=== PATIENT | female | born 1945 | race Caucasian/White ===

== ENCOUNTER 2018-04-27 10:00 | Outpatient (CLI) | payer MEDICARE, SELFPAY | END 2018-04-27 10:01 | PROVIDERS: PCP Nurse Practitioner Family; Visit Provider Psychiatry & Neurology Neurology | DX: G40.109 Localization-related (focal) (partial) symptomatic epilepsy and epileptic syndromes with simple partial seizures, not intractable, without status epilepticus (principal); Q28.3 Other malformations of cerebral vessels; I10 Essential (primary) hypertension; T42.0X5A Adverse effect of hydantoin derivatives, initial encounter | CPT/HCPCS: 99213 ==

== ENCOUNTER 2018-12-29 00:57 | Outpatient (CLI) | payer MEDICARE, SELFPAY ==
--- NOTE | 2018-12-29 12:42 | DI.MAMMO_ITS ---
SYMPTOMS/DIAGNOSIS: SCREENING, Z12.39 MAMMOGRAMS: Mammograms were interpreted according to the usual protocol including computer analysis with CAD system, tomosynthesis and C view imaging. There are no priors for comparison. No suspicious masses or microcalcifications are seen. There is a well- circumscribed nodule in the upper right breast seen on the mediolateral oblique view. This should be further evaluated with a spot compression view. Ultrasound may be indicated at that time. The skin and axillae are unremarkable. IMPRESSION: Additional views of the right breast as described above. Category 0, breast density C. MQSA ASSESSMENT OF FINDINGS: Incomplete: Needs additional imaging evaluation. Category 0. Patient will receive a letter notifying them of these results. Bi-RADS category C. The breasts are heterogeneously dense, which may obscure small masses.
== END 2018-12-29 01:17 ==
PROVIDERS: PCP Nurse Practitioner Family; Visit Provider Nurse Practitioner Family
DX: Z12.31 Encounter for screening mammogram for malignant neoplasm of breast (principal); R92.8 Other abnormal and inconclusive findings on diagnostic imaging of breast
CPT/HCPCS: 77063; 77067

== ENCOUNTER 2019-02-09 01:43 | Outpatient (CLI) | payer MEDICARE, SELFPAY ==
--- NOTE | 2019-02-09 09:52 | DI.COMBO_ITS ---
SYMPTOM/DIAGNOSIS: F/U MAMMO, NODULE RUQ RIGHT BREAST ADDITIONAL VIEWS AND RIGHT BREAST ULTRASOUND: Additional images are interpreted according to the usual protocol including tomosynthesis and 2D imaging. A mediolateral compression spot film was obtained today and reveals no definite mass. At ultrasound, no cyst or mass is demonstrated. SUMMARY: No evidence of malignancy, category 1. Yearly screening mammography is recommended. Breast density, Category B. MQSA ASSESSMENT OF FINDINGS: Negative. Category 1. Patient will receive a letter notifying them of these results. BI-RADS category B. There are scattered areas of fibroglandular density.
== END 2019-02-09 02:03 ==
PROVIDERS: PCP Nurse Practitioner Family
DX: Z12.31 Encounter for screening mammogram for malignant neoplasm of breast (principal); R92.8 Other abnormal and inconclusive findings on diagnostic imaging of breast; N64.59 Other signs and symptoms in breast
CPT/HCPCS: 76642; 77063; 77067

== ENCOUNTER → 2019-04-03 13:18 | Outpatient (BNVA) | payer MEDICARE, SELFPAY | PROVIDERS: PCP Nurse Practitioner Family; Visit Provider Psychiatry & Neurology Neurology | DX: Q28.3 Other malformations of cerebral vessels (principal); G40.109 Localization-related (focal) (partial) symptomatic epilepsy and epileptic syndromes with simple partial seizures, not intractable, without status epilepticus; M81.0 Age-related osteoporosis without current pathological fracture; G62.2 Polyneuropathy due to other toxic agents; I10 Essential (primary) hypertension | CPT/HCPCS: 99213 ==

== ENCOUNTER 2020-04-30 14:22 | Outpatient (REF) | payer MEDICARE, SELFPAY ==
[2020-04-30 19:38] LABS: HCT 37.3 % (36.0-46.0); HGB 12.4 g/dL (11.2-15.7); MCH 33.3 pg (27.0-33.0); MCHC 33.2 % (32.0-36.0); MCV 100.3 fL (80-95); MPV 10.3 fL (8.0-11.0); Platelet Count 319 10^3/uL (130-400); RBC 3.72 10^6/uL (3.93-5.22); RDW 11.9 % (11.7-14.6)
[2020-04-30 20:20] LABS: ALT 14 U/L (14-59); AST 27 U/L (15-37); Albumin 3.1 g/dL (3.4-5.0); Alkaline Phosphatase 173 U/L (46-116); Anion Gap 9.6 mmol/L (3-11); BUN 10 mg/dL (7-18); Bilirubin, Total 0.2 mg/dL (0.2-1.0); CO2 27.4 mmol/L (21.0-32.0); CREATININE 0.51 mg/dL (0.55-1.02); Calcium 8.5 mg/dL (8.5-10.1); Chloride 103 mmol/L (98-107); Glucose 91 mg/dL (74-106); Potassium 4.1 mmol/L (3.5-5.1); Sodium 140 mmol/L (136-145); TSH (W/Ref FT4) 1.65 uIU/mL (0.36-3.74); Total Protein 7.3 g/dL (6.4-8.2); Vitamin B12 258 pg/mL (193-986)
[2020-05-02 04:49] LABS: Vitamin D 25 Total 60.3 ng/ml (30-100)
== END 2020-04-30 14:42 ==
LOC: NCHCN 14:22
PROVIDERS: PCP Nurse Practitioner Family; Visit Provider Nurse Practitioner Family
DX: R63.4 Abnormal weight loss (principal); E53.8 Deficiency of other specified B group vitamins; M81.0 Age-related osteoporosis without current pathological fracture
CPT/HCPCS: 80053; 82306; 85027; 82607; 84443

== ENCOUNTER → 2020-06-03 14:29 | Outpatient (BNVA) | payer MEDICARE, SELFPAY | PROVIDERS: PCP Nurse Practitioner Family; Referring Provider Nurse Practitioner Family; Visit Provider Psychiatry & Neurology Neurology | DX: G40.109 Localization-related (focal) (partial) symptomatic epilepsy and epileptic syndromes with simple partial seizures, not intractable, without status epilepticus (principal); Q28.3 Other malformations of cerebral vessels; M81.0 Age-related osteoporosis without current pathological fracture; G62.2 Polyneuropathy due to other toxic agents; E53.8 Deficiency of other specified B group vitamins; T42.0X Poisoning by, adverse effect of and underdosing of hydantoin derivatives; R20.0 Anesthesia of skin; I10 Essential (primary) hypertension | CPT/HCPCS: 99214 ==

== ENCOUNTER → 2020-07-30 09:58 | Outpatient (BNVA) | payer MEDICARE, SELFPAY | PROVIDERS: PCP Nurse Practitioner Family; Referring Provider Nurse Practitioner Family; Visit Provider Nurse Practitioner Adult Health | DX: G56.01 Carpal tunnel syndrome, right upper limb (principal) | CPT/HCPCS: 95908; 99214 ==

== ENCOUNTER 2021-07-03 16:35 | Outpatient (REF) | payer MEDICARE, SELFPAY ==
[2021-07-03 15:19] LABS: HCT 38.6 % (36.0-46.0); HGB 12.8 g/dL (11.2-15.7); MCH 33.2 pg (27.0-33.0); MCHC 33.2 % (32.0-36.0); MPV 10.4 fL (8.0-11.0); Platelet Count 278 10^3/uL (130-400); RBC 3.86 10^6/uL (3.93-5.22); RDW 11.9 % (11.7-14.6); WBC 6.95 10^3/uL (4.4-10.8)
[2021-07-03 15:43] LABS: Iron 68 ug/dL (50-170); Total Iron Binding Capacity 203 ug/dL (250-450); Transferrin Sat 33 % (15-50)
[2021-07-03 15:57] LABS: ALT 18 U/L (14-59); AST 16 U/L (15-37); Albumin 3.4 g/dL (3.4-5.0); Alkaline Phosphatase 178 U/L (46-116); BUN 13 mg/dL (7-18); Bilirubin, Total 0.3 mg/dL (0.2-1.0); CREATININE 0.8 mg/dL (0.55-1.02); Calcium 8.5 mg/dL (8.5-10.1); Chloride 104 mmol/L (98-107); Glucose 95 mg/dL (74-106); Potassium 3.8 mmol/L (3.5-5.1); Sodium 142 mmol/L (136-145); TSH (W/Ref FT4) 2.97 uIU/mL (0.36-3.74); Total Protein 7.5 g/dL (6.4-8.2); Vitamin B12 298 pg/mL (193-986)
== END 2021-07-03 16:36 | disposition home or self-care (01) ==
LOC: NCHCN 16:35
PROVIDERS: PCP Nurse Practitioner Family; Visit Provider Nurse Practitioner Family
DX: N36.8 Other specified disorders of urethra (principal); R53.83 Other fatigue; I10 Essential (primary) hypertension; E53.8 Deficiency of other specified B group vitamins
CPT/HCPCS: 80053; 85027; 82607; 83540; 83550; 84443

== ENCOUNTER → 2021-09-16 09:49 | Outpatient (BNVA) | payer MEDICARE, SELFPAY | PROVIDERS: PCP Nurse Practitioner Family; Referring Provider Nurse Practitioner Family; Visit Provider Nurse Practitioner Gerontology | DX: R30.0 Dysuria (principal); N36.8 Other specified disorders of urethra; I10 Essential (primary) hypertension | CPT/HCPCS: 81003; 99214 ==

== ENCOUNTER 2021-09-16 15:13 | Outpatient (REF) | payer MEDICARE, SELFPAY | END 2021-09-16 15:14 | disposition home or self-care (01) | LOC: NCHCN 15:13 | PROVIDERS: PCP Nurse Practitioner Family; Visit Provider Nurse Practitioner Gerontology | DX: R30.0 Dysuria (principal) | CPT/HCPCS: 87086 ==

== ENCOUNTER → 2021-10-21 08:24 | Outpatient (BNVA) | payer MEDICARE, SELFPAY | PROVIDERS: PCP Nurse Practitioner Family; Referring Provider Nurse Practitioner Family; Visit Provider Nurse Practitioner Gerontology | DX: N36.8 Other specified disorders of urethra (principal) | CPT/HCPCS: 99213 ==

== ENCOUNTER → 2021-11-05 14:44 | Outpatient (CLI) | payer MEDICARE, SELFPAY ==
--- NOTE | 2021-11-05 14:41 | DI.RAD_ITS ---
Exam(s) XR ANKLE LT COMPLETE EXAM: XR ANKLE LT COMPLETE CLINICAL HISTORY: LT ANKLE PAIN, M25.572, LATERAL POSTERIOR MALLEOLI, S/P ROLLING, ? FX TECHNIQUE: 2D digital imaging was performed. COMPARISON: No exams were available for comparison FINDINGS: Exam is somewhat limited by overlying socks. BONES: No acute fracture is present. No bony destructive lesion is seen. Small heel spur. JOINTS:The ankle mortise is normally aligned. SOFT TISSUE: Vascular calcifications. IMPRESSION: No visible fracture. DATA REPOSITORY: RADIATION DOSE DELIVERED:
== END ==
PROVIDERS: PCP Nurse Practitioner Family; Visit Provider Physician Assistant Medical
DX: M25.572 Pain in left ankle and joints of left foot (principal)
CPT/HCPCS: 73610

== ENCOUNTER → 2022-01-07 14:23 | Outpatient (BNVA) | payer MEDICARE, SELFPAY | PROVIDERS: PCP Nurse Practitioner Family; Referring Provider Nurse Practitioner Family; Visit Provider Physician Assistant | DX: S90.32XA Contusion of left foot, initial encounter (principal); W06.XXXA Fall from bed, initial encounter | CPT/HCPCS: 99214 ==

== ENCOUNTER → 2022-02-13 00:03 | Outpatient (CLI) | payer MEDICARE, SELFPAY ==
--- NOTE | 2022-02-13 | DI.DEXA_ITS ---
Exam(s) XR DEXA BONE DENSITY W/WO ZURDO EXAM: XR DEXA BONE DENSITY W/WO ZURDO CLINICAL HISTORY: OSTEOPOROSIS M81.0 TECHNIQUE: COMPARISON: BD BONE DENSITY SPINE AND/OR HIP from 09/17/2016 FINDINGS: Lateral Spine Image: There is a mild compression deformity of the superior endplate of L3. There is anterior wedging of the L1 vertebral body. Left hip: Total T-Score: -3.4. This compares to -2.5 on the prior examination. Total Z-Score: -1.7 T- and Z-scores: Findings are consistent with osteoporosis. Lumbar Spine: Total T-Score: -3.9. This compares to -3.8 on the prior examination. Total Z-Score: -1.6 T- and Z-scores: Findings are consistent with osteoporosis. IMPRESSION: Osteoporosis in the left hip and lumbar spine.
== END ==
PROVIDERS: PCP Nurse Practitioner Family; Visit Provider Nurse Practitioner Family
DX: M81.0 Age-related osteoporosis without current pathological fracture (principal)
CPT/HCPCS: 77080

== ENCOUNTER 2022-04-24 07:58 | Outpatient (CLI) | payer MEDICARE, SELFPAY ==
--- NOTE | 2022-04-24 07:45 | RT.EKG_ITS ---
APPROVED REPORT Exam: Resting ECG Reason for Exam: afib Patient Location: O HR:85 bpm ECG Measurements Heart Rate 85 AXIS [place] [id number] P [id number] QRSd 78 QRS 53 QT 373 T 35 QTc 444 Conclusion Atrial fibrillation...? atrial activity RSR' in V1 or V2, probably normal variant...small R' only Baseline wander in lead(s) V3
== END 2022-04-24 07:59 | disposition home or self-care (01) ==
LOC: DI.CARD 07:59
PROVIDERS: PCP Nurse Practitioner Family; Visit Provider Internal Medicine Cardiovascular Disease
DX: I48.91 Unspecified atrial fibrillation (principal); R94.31 Abnormal electrocardiogram [ECG] [EKG]
CPT/HCPCS: 93010

== ENCOUNTER → 2022-04-24 13:10 | Outpatient (BNVA) | payer MEDICARE, SELFPAY | PROVIDERS: PCP Nurse Practitioner Family; Referring Provider Nurse Practitioner Family; Visit Provider Internal Medicine Cardiovascular Disease | DX: Q28.3 Other malformations of cerebral vessels (principal); I48.91 Unspecified atrial fibrillation | CPT/HCPCS: 93005; 99203; 99214 ==

== ENCOUNTER 2022-06-19 00:02 | Outpatient (CLI) | payer MEDICARE, SELFPAY ==
--- NOTE | 2022-06-19 10:30 | DI.US_ITS ---
APPROVED REPORT EXAM: Comprehensive 2D, Doppler, and color-flow Echocardiogram Patient Location: Out-Patient [employer] Filterer: Ellen Barragan RDCS (AE) Indications: A Fib Other Information Study Quality: Adequate Conclusion Normal left ventricular wall thickness and chamber size. Estimated ejection fraction is 60%. Wall m otion is normal Right ventricle is normal in size and systolic function The left atrium is moderately to severely dilated. The right atrium is mildly to moderately dilated Normal tricuspid valve with moderate regurgitation The aortic valve is sclerotic and trileaflet with trace regurgitation Normal mitral valve with moderate regurgitation Mildly dilated ascending aorta Estimated right ventricular systolic pressure is 31 mmHg Wall motion Left Ventricle The left ventricle is normal size. The left ventricular systolic function is normal. The left ventric ular ejection fraction is within the normal range. There is normal left ventricular wall thickness. T here is normal LV segmental wall motion. There is no ventricular septal defect visualized. LVEF is 58 %. Right Ventricle The right ventricle is normal size. The right ventricular systolic function is normal. The RVSP is 31 mmHg. Atria Left atrium is moderately to severely dilated. Right atrium is mild to moderately dilated. The intera trial septum is intact with no evidence for an atrial septal defect. Aortic Valve The Aortic valve is sclerotic. Aortic valve is trileaflet. There is no aortic valvular stenosis. Trac e aortic regurgitation. Mitral Valve The mitral valve is normal in structure. No evidence of mitral valve stenosis. moderate mitral regurg itation. Tricuspid Valve The tricuspid valve is normal in structure. There is no tricuspid valve stenosis. Moderate tricuspid regurgitation. Pulmonic Valve The pulmonary valve is normal in structure. There is no pulmonic valvular stenosis. Trace pulmonic re gurgitation. Great Vessels The aortic root is normal in size. The ascending aorta is mildly dilated. Aortic arch is normal in ca liber. IVC is normal in size and collapses >50% with inspiration. 2D Dimensions IVSD d PLAX 0.93 cm F: 0.6-1.0 LV Vol A2C d MOD 50.2 mL LVPW d PLAX 0.86 cm F: 0.6 - 1.0 LV Vol A4C d MOD 68.5 mL LVID d PLAX 4.10 cm F: 3.8 - 5.2 LA vol/ BSA A2C s A-L 34.5 mL/m2 LVDs 2.80 cm F: 2.2 - 3.5 LA Area A2C s MOD 20.48 cm2 Ao Root d 2.97 cm F: 2.7 - 3.3 LV EF A4C MOD 56.7 % RA Area A4C 17.68 cm2 LV EF A2C MOD 58.6 % RA Vol/ BSA A4C s A-L 32.9 mL/m2 LV EF Biplane MOD 57.6 % Ao Asc Diam d 3.49 cm F: 2.3 - 3.1 SV 34.28 mL LV EF Teichholz 59.9 % SV Index 20.39 mL/m2 LVEF (Bullock's) 57.59 % F: 54 - 74 LV Volume 47.47 mL F: 46 - 106 LV Volume Index 28.25 mL/m2 F: 29 - 61 LV Vol Biplane MOD 59.5 mL FS 31.50 % M-Mode TAPSE 1.75 cm (M/F) >1.7 LV Diastology MV E' lateral 0.037 (>0.1 m/s) MV E Vmax 0.79 (0.4-1.3 m/s) LV E/e LAT 21.25 (<14) MV E/E' lateral 21.26 Aortic Valve LVOT Area 2.90 cm2 AoV Area Vmax 2.23 cm2 LVOT Vmax 0.68 m/s AoV Area/ BSA (Vmax) 1.33 cm2/m2 LVOT Mean Jam. 0.48 m/s EARLINE Mean Jam. 2.15 cm2 LVOT Peak Grad 1.9 mmHg EARLINE Mean Jam. Index 1.28 cm2/m2 LVOT Mean Grad 1.1 mmHg LVOT VTI 0.118 m LVOT Diam s 1.90 cm AoV Vmax 0.89 m/s Velocity Ratio 0.76 AoV Mean Jam. 0.65 m/s AoV Peak Grad 3.1 mmHg LVOT SV 34.36 mL AoV Mean Grad 1.9 mmHg AoV VTI 0.173 m AoV Area VTI 1.99 cm2 AoV Area/ BSA (VTI) 1.18 cm/m2 Mitral Valve MV DT 154 (160-240 msec) MV PHT 45 msec MV Area PHT 4.93 cm2 MV VTI 0.135 m MV Area VTI 2.54 (4.0-6.0 cm2) Pulmonary Valve PV Vmax 0.62 (0.5-1.5 m/s) RVOT Peak Gr. 1.13 mmHg PV Peak Grad 1.5 mmHg RVOT Mean Gr. 0.55 mmHg PV Mean Grad 0.8 mmHg RVOT VTI 0.101 m PV VTI 0.107 m RVOT Vmax 0.53 m/s Tricuspid Valve TR Peak Grad 27.9 mmHg TR Vmax 2.64 m/s RA Pressure 3.00 mmHg RVSP (TR) 31.0 mmHg
== END 2022-06-19 00:22 ==
LOC: DI 00:02
PROVIDERS: PCP Nurse Practitioner Family; Visit Provider Internal Medicine Cardiovascular Disease
DX: I48.91 Unspecified atrial fibrillation (principal)
CPT/HCPCS: 93306

== ENCOUNTER 2022-06-26 11:48 | Outpatient (REF) | payer MEDICARE, SELFPAY ==
[2022-06-26 16:51] LABS: ALT 17 U/L (14-59); AST 19 U/L (15-37); Albumin 3.4 g/dL (3.4-5.0); Alkaline Phosphatase 164 U/L (46-116); Anion Gap 10.1 mmol/L (3-11); BUN 21 mg/dL (7-18); Bilirubin, Total 0.4 mg/dL (0.2-1.0); CO2 26.9 mmol/L (21.0-32.0); CREATININE 0.7 mg/dL (0.55-1.02); Chloride 102 mmol/L (98-107); Glucose 105 mg/dL (74-106); Sodium 139 mmol/L (136-145); Total Protein 8.2 g/dL (6.4-8.2)
== END 2022-06-26 11:49 | disposition home or self-care (01) ==
LOC: NCHCN 11:48
PROVIDERS: PCP Nurse Practitioner Family; Visit Provider Nurse Practitioner Family
DX: I10 Essential (primary) hypertension (principal)
CPT/HCPCS: 80053

== ENCOUNTER → 2023-04-13 13:19 | Outpatient (BNVA) | payer MEDICARE, SELFPAY | PROVIDERS: PCP Nurse Practitioner Family; Referring Provider Nurse Practitioner Family; Visit Provider Internal Medicine Cardiovascular Disease | DX: I48.91 Unspecified atrial fibrillation (principal); Q28.3 Other malformations of cerebral vessels | CPT/HCPCS: 99213 ==

== ENCOUNTER 2023-07-19 17:39 | Outpatient (REF) | payer MEDICARE, SELFPAY ==
[2023-07-19 19:11] LABS: Abs Immature Grans 0.01 10^3/uL (0.0-0.06); Absolute Basophil Count 0.04 10^3/uL (0.0-0.2); Absolute Eosinophil Count 0.13 10^3/uL (0.0-0.7); Absolute Lymphocyte Count 1.77 10^3/uL (1.2-3.4); Absolute Monocyte Count 0.59 10^3/uL (0.1-0.8); Absolute Neutrophil Count 3.93 10^3/uL (1.2-6.7); Basophils % 0.6; HCT 39.3 % (36.0-46.0); HGB 13.1 g/dL (11.2-15.7); Immature Grans % 0.2; Lymphocytes % 27.4; MCH 33.4 pg (27.0-33.0); MCHC 33.3 % (32.0-36.0); MCV 100 fL (80-95); MPV 10.7 fL (8.0-11.0); Monocytes % 9.1; Neutrophils % 60.7; Platelet Count 196 10^3/uL (130-400); RBC 3.92 10^6/uL (3.93-5.22); RDW 11.8 % (11.7-14.6); RDW-SD 43.2 fL; WBC 6.47 10^3/uL (4.4-10.8)
[2023-07-19 19:22] LABS: ALT 15 U/L (14-59); AST 18 U/L (15-37); Albumin 3.5 g/dL (3.4-5.0); Alkaline Phosphatase 162 U/L (46-116); Anion Gap 10.4 mmol/L (3-11); BUN 13 mg/dL (7-18); Bilirubin, Total 0.3 mg/dL (0.2-1.0); CO2 24.6 mmol/L (21.0-32.0); CREATININE 0.5 mg/dL (0.55-1.02); Calcium 8.8 mg/dL (8.5-10.1); Chloride 101 mmol/L (98-107); Estimated GFR 97.75 (mL/min/1.73m2); Glucose 95 mg/dL (74-106); Potassium 4.5 mmol/L (3.5-5.1); Sodium 136 mmol/L (136-145); Total Protein 7.4 g/dL (6.4-8.2)
== END 2023-07-19 17:40 | disposition home or self-care (01) ==
LOC: NCHCN 17:39
PROVIDERS: PCP Nurse Practitioner Family; Visit Provider Nurse Practitioner Family
DX: I48.91 Unspecified atrial fibrillation (principal); I10 Essential (primary) hypertension
CPT/HCPCS: 80053; 85025

== ENCOUNTER → 2024-02-04 00:58 | Outpatient (CLI) | payer MEDICARE, SELFPAY ==
--- NOTE | 2024-02-04 | DI.MRI_ITS ---
Exam(s) MR LOWER JOINT LT WO EXAM: MR LOWER JOINT LT WO CLINICAL HISTORY: Lt knee laxity with pain, instability, and falls, M23.8X9. TECHNIQUE: Multiplanar multisequence MRI was performed. COMPARISON: Exam interpreted without benefit of comparison plain films. FINDINGS: BONES: There is no fracture or contusion pattern. JOINTS: A small joint effusion is present. Articular cartilage: Patellofemoral joint: Severe cartilage thinning throughout. Some high signal w ithin the patellar apex. Medial femoral tibial joint: Mild cartilage thinning. Lateral femoral tibial joint: Irregular cartilage thinning extending down to bone. TENDONS: Extensor mechanism: Unremarkable. Medial retinaculum: Unremarkable. Lateral retinaculum: Unremarkable. Popliteus: Unremarkable. MUSCLES: Unremarkable. MENISCI: The medial meniscus shows degenerative changes. The lateral meniscus shows degenerative changes. SOFT TISSUES: Unremarkable. LIGAMENTS: Anterior Cruciate: Unremarkable. Posterior Cruciate: Unremarkable. Medial Collateral:Unremarkable. Lateral Collateral: Unremarkable. IMPRESSION: No evidence of ligament tear. Degenerative changes with severe cartilage thinning at the patellofemoral joint. Cartilage at irregularity at the lateral femoral tibial joint. Degenerative changes of the menisci, lateral greater than medial. DATA REPOSITORY:
== END ==
PROVIDERS: PCP Nurse Practitioner Family; Visit Provider Nurse Practitioner Family
DX: M17.12 Unilateral primary osteoarthritis, left knee (principal)
CPT/HCPCS: 73721

== ENCOUNTER 2024-04-18 12:44 | Outpatient (CLI) | payer MEDICARE, SELFPAY ==
--- NOTE | 2024-04-18 12:30 | RT.EKG_ITS ---
APPROVED REPORT Exam: Resting ECG Reason for Exam: afib Patient Location: O HR:86 bpm ECG Measurements Heart Rate 86 [address] [place] [id number] P [id number] QRSd 95 QRS 25 QT 351 T 15 QTc 420 Conclusion Atrial fibrillation...? atrial activity RSR' in V1 or V2, probably normal variant...small R' only Baseline wander in lead(s) V1,V2
== END 2024-04-18 12:45 | disposition home or self-care (01) ==
LOC: DI.CARD 12:45
PROVIDERS: Visit Provider Internal Medicine Cardiovascular Disease
DX: I48.91 Unspecified atrial fibrillation (principal)
CPT/HCPCS: 93010

== ENCOUNTER → 2024-04-18 13:32 | Outpatient (BNVA) | payer MEDICARE, SELFPAY | PROVIDERS: PCP Nurse Practitioner Family; Visit Provider Internal Medicine Cardiovascular Disease ==

== ENCOUNTER 2024-04-18 15:32 | Outpatient (CLI) | payer MEDICARE, SELFPAY ==
[2024-04-18 14:40] LABS: Abs Immature Grans 0.04 10^3/uL (0.0-0.06); Absolute Basophil Count 0.05 10^3/uL (0.0-0.2); Absolute Eosinophil Count 0.15 10^3/uL (0.0-0.7); Absolute Lymphocyte Count 1.41 10^3/uL (1.2-3.4); Absolute Neutrophil Count 7.78 10^3/uL (1.2-6.7); Basophils % 0.5 %; Eosinophils % 1.5 %; HCT 42.6 % (36.0-46.0); HGB 14.2 g/dL (11.2-15.7); Immature Grans % 0.4 %; Lymphocytes % 13.8 %; MCH 34.5 pg (27.0-33.0); MCHC 33.3 % (32.0-36.0); MCV 104 fL (80-95); MPV 9.5 fL (8.0-11.0); Monocytes % 7.8 %; Platelet Count 196 10^3/uL (130-400); RBC 4.11 10^6/uL (3.93-5.22); RDW 11.9 % (11.7-14.6); RDW-SD 46.1 fL; WBC 10.23 10^3/uL (4.4-10.8)
[2024-04-18 15:00] LABS: ALT 16 U/L (14-59); AST 13 U/L (15-37); Albumin 3.6 g/dL (3.4-5.0); Alkaline Phosphatase 168 U/L (46-116); Anion Gap 6.1 mmol/L (3-11); BUN 10 mg/dL (7-18); Bilirubin, Total 0.55 mg/dL (0.2-1.0); CO2 31.9 mmol/L (21.0-32.0); CREATININE 0.8 mg/dL (0.55-1.02); Calcium 9.1 mg/dL (8.5-10.1); Chloride 103 mmol/L (98-107); Estimated GFR 76.31 (mL/min/1.73m2); Glucose 112 mg/dL (74-106); Potassium 4.2 mmol/L (3.5-5.1); Sodium 141 mmol/L (136-145); Total Protein 7.9 g/dL (6.4-8.2)
--- OUTSIDE RECORDS SUMMARY | 2024-04-18 15:38 | XMS_ITS | Continuity of Care Document ---
Author Organization [facility] Address [address] [place] [address] Care Team Providers Care K 9 Police Officer Name Role Phone STONE ANNA Verse Writer Assessment No assessment recorded. Plan of Treatment Reminders Order Date Submit Date Provider Last Modified By Organization Details Last Modified Time Details Appointments Follow Up 30 2023 12:30P M SILKE BERGMAN Not available Not available Not available Lab None recorded. Referral neurologi referral - re-establ artie care and also discuss tremor of right hand with intention 2023 024 [email or web address] Natasha Mora MD, [address] [place] [address] Dr, [address], [place], [address], 02/17/2024 11:10:11 Procedures None recorded. Surgeries None recorded. Imaging MRI, knee, w/o contrast - left knee laxity, with pain and instabili ty and falls 2023 024 [facility], [address], [place], [address], 02/04/2024 12:37:47 Medication Orders metoprolo l tartrate 50 mg tablet 2023 024 [id number], [address] [facility], [place], [address], 01/17/2024 12:50:59 Patient TargetsNo targets recorded. Patient Instructions Encounter Date Encounter Id Patient Instructions Last Modified By Organization Details Last Modified Time 01/17/2024 [id number] Nice to see you today [place]! Neurology should be calling you to schedule a visit to re-establish care for seizure disorder and for new tremor of right hand with computer use MRI of left knee ordered. I suspect you have a meniscal tear or ACL tear. We will start with imaging and next step would be orthopedic consult BP a little low so be careful with positional changes and we talked about getting a walker for stability instead of just a cane due to your knee and falling twice lately continue current Dilantin dosing, review will be with neurologist See cardiology as planned in April for check in on afib. [email or web address] Not available 01/17/2024 13:03:07 Reason for Referral Neurologist Referral for Amadeo kelly re-establish care and also discuss tremor of right hand with intention Referring Physician: Silke Bergman [facility], Encounter Date: 01/17/2024 Orthopedic Surgeon Referral for Knee joint laxity MRI completed January 2024. has no tears but meniscal degeneration, joint degeneration. lots of instabil MRI completed January 2024. has no tears but meniscal degeneration, joint degeneration. lots of instability with gait Referring Physician: Silke Bergman [facility], Encounter Date: 04/18/2024 Results Created Date Observation Date Name Description Value Unit Range Abnormal Flag LastModifiedBy Organization Detail LastModifiedTime 02/04/20 24 02/04/2024 MRI imagi ng repor t Patien t Name: Kaye Cohen Unit #: [id number] Loc: DI Orderi ng Provid er: Silke Bergman Accoun t #: [id number] Status : REG CLI Primar y Care Provid er: Silke Bergman Date of Exam: Sex: F Admiss ion Date: : 1944 Age: 78 Exam(s ) MR LOWER JOINT LT WO EXAM: MR LOWER JOINT LT WO CLINIC AL HISTOR Y: Lt knee laxity with pain, instab ility, and falls, M23.8X 9. TECHNI QUE: Multip lanar multis equenc e MRI was perfor med. COMPAR LEATHA: Exam interp reted withou t benefi t of compar leatha plain films. FINDIN GS: BONES: There is no fractu re or contus ion patter n. JOINTS : A small joint effusi on is presen t. Articu lar cartil age: Patell ofemor al joint: Severe cartil age thinni ng throug hout. Some high signal within the patell ar apex. Medial femora l tibial joint: Mild cartil age thinni ng. Latera l femora l tibial joint: Irregu lar cartil age thinni ng extend ing down to bone. TENDON S: Extens or mechan ism: Unrema rkable . Medial retina culum: Unrema rkable . Latera l retina culum: Unrema rkable . Poplit eus: Unrema rkable . MUSCLE S: Unrema rkable . MENISC I: The medial menisc us shows degene rative change s. The latera l menisc us shows degene rative change s. SOFT TISSUE S: Unrema rkable . LIGAME NTS: Anteri or Crucia te: Unrema rkable . R And D Lab Technician ior Crucia te: Unrema rkable . Medial Collat eral:U nremar kable. Latera l Collat eral: Unrema rkable . IMPRES GUZMAN: No eviden ce of ligame nt tear. Degene rative change s with severe cartil age thinni ng at the patell ofemor al joint. Cartil age at irregu larity at the latera l femora l tibial joint. Degene rative change s of the menisc i, latera l greate r than medial . DATA REPOSI TORY: Lina d By: Silke Bergman CC: ------ ------ ------ ------ ------ ------ ------ ------ ------ ------ ------ ------ - Dictat ed By: Sue Whyte [id number] Transc ribed By: Alcides Tabares 1127 This is privil eged, confid ential inform ation intend ed only for the provid er named. Any use or distri bution by any person other than this provid er is strict ly prohib ited. If you receiv e this report in error, please notify us immedi ately at and return the origin al report to us at the addres s above. Thank- you. [email or web address] [place] [id number] [facility] [place], [address] 04/18/2024 14:47:30 02/04/20 24 02/04/2024 MRI, knee, w/o contr ast No observ ation record ed. [email or web address] [facility] (Radiology) [address] [place] [address] [place], [address], 02/08/2024 13:41:18 Result Notes None recorded. Problems Name Status Onset Date Resolution Date Notes Provider Name and Address Organization Details Recorded Time Vitamin B deficiency Active 2017 Enriqueroberto Franz [facility], [facility]. 4 18:02:57 Senile osteoporosis Active 2017 Enriqueroberto Franz [facility] 4 18:02:45 Essential hypertension Active 2017 Enriqueroberto Franz [facility] 4 18:01:34 Gastroesophag eal reflux disease without esophagitis Active 2017 Enriqueroberto Franz [facility]. 4 18:01:51 Hyperlipidemi a Active 2017 Enrique Franz [facility]. 4 18:02:08 Abnormal gait Active 2017 due to impairment of balance Enriqueroberto Frazn [facility] 4 18:00:49 Anxiety disorder Active 2017 Enrique Franz [facility], [facility] 4 18:01:03 Hemangioma Active 2017 Liver Enriqueroberto Franz [facility] 4 18:02:00 Adult health examination Completed 201707/19/2023 Problem Code: Z00.00; Problem Code Type: ICD-10; Not Available [facility] 4 05:35:33 Counseling Completed 201712/03/2017 11/19/2017 - Comments only - Ellie Nelson APRN - Patient declines colonoscopy and mammogram. Due for Tdap, but contraindicat ed with seizure disorder. Scheduled PE with fasting labs prior. Problem Code: Z71.89; Problem Code Type: ICD-10; Not Available [facility] 3 05:20:08 [facility]inatio n [facility] 2017 [facility]. 4 18:02:15 Osteoarthriti s of multiple joints [facility] 4 18:02:36 Abnormal weight loss Active 2019 [facility]. 4 18:00:56 Mild recurrent major depression Active 2019 [facility]. 4 18:02:31 Carpal tunnel syndrome of right wrist [facility] 4 18:01:28 Disorder of urethra Active 2020 [facility]. 4 18:01:40 Low back pain [facility] 2020 [facility]. 4 18:02:26 Fatigue Active 2020 [facility]. 4 18:01:44 Arthralgia of the ankle and/or foot Active 2021 [facility]. 4 18:01:16 Visual disturbance Active 2021 [facility], [facility]. 4 18:02:50 Pain in right hip joint Active 2021 [facility]. 4 18:02:40 Atrial fibrillation Active 2021 Enrique Franz [facility], [facility] 4 18:01:21 Seizure Completed 201706/09/2023 12/31/2017 - Comments only - Ellie Nelson APRN - Has been on dilantin for many years, no seizure activity. Has appt with Dr. Mora next week to establish care. Problem Code: R56.9; Problem Code Type: ICD-10; [address] [place], [address] , [facility] 4 12:52:35 Swelling Completed 201803/06/2019 Not Available [facility] 3 05:20:10 Pleuritic pain Completed 201810/13/2019 Problem Code: R07.81; Problem Code Type: ICD-10; Not Available [facility] 3 05:20:10 Arthritis of knee Completed 201704/30/2020 Problem Code: M13.869; Problem Code Type: ICD-10; Not Available [facility] 3 05:20:10 Arthralgia of the ankle and/or foot Completed 201810/13/2019 Problem Code: M25.572; Problem Code Type: ICD-10; Enrique el, [facility] 4 18:01:16 Arthropathy Completed 201704/30/2020 Problem Code: M12.9; Problem Code Type: ICD-10; Not Available [facility] 3 05:20:11 Counseling Completed 202208/18/2023 08/01/2023 - Comments only - Silke Bergman HYDROGRAPHIC ENGINEER - Now established on my panel Reviewed health history and current medical conditions. Problem Code: Z71.89; Problem Code Type: ICD-10; Not Available [facility] 4 05:35:33 Knee joint laxity Active [address], [place], [address] , [facility] 4 12:49:36 Seizure Active 202312/31/2017 - Comments only - Ellie Goncalvesuk DIAZ - Has been on dilantin for many years, no seizure activity. Has appt with Dr. Mora next week to establish care. Problem Code: R56.9; Problem Code Type: ICD-10; [address], [place], [address] , [facility] 4 12:52:35 Seizure disorder Active [address], [place], [address] , [facility] 4 13:05:52 Problem Notes None recorded. Medical Equipment None Reported. Allergies Allergen ID Allergen Name Allergen Category Reaction Reaction Severity Criticality Documentation Date Start Date Code Code System Note Provider Name and Address Organization Details Recorded Time 97224 cat dander environme nt Not available Not available Not available 07/23/20232017 Not Available [facility] 3 16:22:13 22503 Medicinal product containin g penicilli n and acting as antibacte rial agent (product) medicatio n Not available Not available Not available 07/23/20232017 42948 05 SNOMED MIN PEÑA RN [facility], [facility] 4 11:49:46 Medications Name Sig Start Date Stop Date Status Note LastModified by Organization Details LastModified Time Toprol XL 100 mg tablet,ex tended release Take 1 tab by mouth daily 2017 active Not Available Not Available Not Avai lable phenytoin sodium extended 100 mg capsule TAKE TWO CAPSULES BY MOUTH THREE TIMES EVERY DAY active Not Available Not Available No t Available Vitamins B Complex capsule 2019 active Not Available Not Available Not Avai lable ofloxacin 0.3 % ear drops 1-2 drops in affected eyes 4 times a day for 5-7 days 2018 active Not Available Not Available Not Avai lable Fosamax 70 mg tablet Take 1 tablet by mouth once a week 07/19 completed Not Available Not Available Not Available sulfaceta mide sodium 10 % eye drops instill one drop in affected eye QID for 5 days 12/31 completed Not Available Not Available Not Available Ocuflox 0.3 % eye drops 1-2 drops in affected eye 4 times a day for 5-7 days 10/13 completed Not Available Not Available Not Available metoprolo l tartrate 50 mg tablet TAKE ONE TABLET BY MOUTH TWICE A DAY active Not Available Not Available No t Available Advil 200 mg tablet Take 1-2 tabs by mouth daily as needed 2019 active Not Available Not Available Not Avai lable aspirin 81 mg chewable tablet Take 1 tablet by mouth twice a day 2022 active Not Available Not Available Not Avai lable cyanocoba madelyn (vit B-12) ER 2,000 mcg tablet,ex tended release Take 1 by mouth daily 11/19 completed Not Available Not Available Not Available Boniva 150 mg tablet Take 1 tablet by mouth once a month 06/26 completed Not Available Not Available Not Available multivita min 1 tablet once a day 07/19 completed Not Available Not Available Not Available Keppra 1,000 mg tablet Take 1 tab twice daily [address] Mora Not Available Not Available Not Available Vitals Date Recorded Body height Body mass index (BMI) Body weight Body temperature Heart rate Respiratory rate Systolic blood pressure Diastolic blood pressure Provider Name and Address Organization Details Last Updated DateTime 4 167.64 cm 23 kg/m2 22433.9 9 g 98.1 [degF] 60 /min 14 /min 104 mm[Hg] 62 mm[Hg] MIN PEÑA RN [facility] 12:01:26 Social History Question Answer Notes LastModified by Organizat ion Details LastModified Time Tobacco Smoking Status Former Smoker Quit 1969 MIN PEÑA RN [facility], [facility] 01/17/2024 11:51:52 When Did You Quit Smoking? 18+yearssin sabrina montoya Information not available 01/17/2024 What Was The Date Of Your Most Recent Tobacco Screening? 04/18/2024 Information not available 04/18/2024 Do You Or Have You Ever Used Any Other Forms Of Tobacco Or Nicotine? No Information not available 01/17/2024 Sex: Female Functional Status None recorded. Mental Status None recorded. Family History Relationship Description Onset Age of this Age Resolved Age Notes Sister Family history of alcoholism Maternal Grandmother Family history of stroke Unspecified Relation Family history of malignant neoplasm of uterus Relative: 'Aunt'; Father Family history of heart failure Maternal Grandfather Family history of heart failure chf Medical History No medical history recorded. Gynecological HistoryNo gynecological history recorded. Obstetrics History GPAL:G 0 P 0 0 0 0 Immunizations Vaccine Type Date Status Provider Name and Address Organization Details Recorded Time Tdap 07/05/2018 completed Not Available [facility] 06:27:58 Td(adult) unspecified formulation 09/02/2007 completed Not Available [facility] 07/23/2023 06:27:58 Influenza, high-dose, quadrivalent, PF 06/26/2022 completed Not Available [facility] 07/23/2023 06:27:58 COVID-19, mRNA, LNP-S, PF, 100 mcg/0.5mL dose or 50 mcg/0.25mL dose 11/07/2020 completed Not Available [facility] 07/23/2023 06:27:58 COVID-19, mRNA, LNP-S, PF, 100 mcg/0.5mL dose or 50 mcg/0.25mL dose 12/03/2020 completed Not Available [facility] 07/23/2023 06:27:58 SARS-COV-2 (COVID-19) vaccine, UNSPECIFIED 02/05/2022 completed Not Available [facility] 07/23/2023 06:27:58 SARS-COV-2 (COVID-19) vaccine, UNSPECIFIED 07/18/2021 completed Not Available [facility] 07/23/2023 06:27:58 COVID-19, mRNA, LNP-S, bivalent, PF, 30 mcg/0.3 mL dose 09/25/2022 completed Not Available [facility] 07/23/20 06:27:58 pneumococcal polysaccharide PPV23 09/13/2012 completed Not Available [facility] 11/10/ 2023 06:27:58 pneumococcal polysaccharide PPV23 04/15/2015 completed Not Available [facility] 2022 06:27:58 influenza, unspecified formulation 10/14/2015 completed Not Available [facility] 07/23/2023 06:27:59 influenza, unspecified formulation 06/03/2020 completed Not Available [facility] 07/23/2023 06:27:59 influenza, unspecified formulation 07/07/2023 completed Not Available [facility] 09/24/2023 05:33:12 COVID-19, mRNA, LNP-S, PF, nataly-sucrose, 30 mcg/0.3 mL 07/19/2023 completed Not Available [facility] 09/24/2023 05:33:12 Past Encounters Encounter ID Performer Location Encounter Start Date Encounter Closed Date Diagnosis/Indication Diagnosis SNOMED-CT Code [id number] VERA DIGN [facility] [address] [place] [address] 01/17/2024 11:26:23 01/17/2024 13:04:35 Essential hypertension 04887334 Knee joint laxity 125899 008 Seizure 83350488 Atrial fibrillation 4943 6004 Health Concerns Section Related Observation LastModified by Organization Detai ls LastModified Time None Recorded Concern Status LastModified by Organization Details LastModified Time None Recorded Payers Encounter Date Sequence Insurance Name Policy Number Policy Lorenz Covered Member ID Lorenz Member ID Guarantor Name 01/17/2024 1 [place] [employer] [place] Deunas [id number] Brooklyn Duenas Notes Date Note Type Note Provider Name and Address Organization Details Recorded Time 01/17/2024 text/html HPI Notes: Brooklyn is a pleasant 77-year-old female here today for 6 month follow up check in visit for chronic condition management. Last labs 07/19/23- cbc and cmp normal. establish care visit 07/19/24. Is managed for seizure disorder through Dr. Mora at [facility] neurology. Last visit with them was July 2020. Is on Dilantin 4 times a day sometimes 5 times a day. Apparently dosing changes daily. Reports that her pills seem to change as far as pharmaceutical supplier and is wondering if this has affected her as she does feel she needs to take more daily and than usual Because she can feel the aura of a seizure coming on and will take another dose. Is really due for a follow-up with a neurology specialist. Does have diagnosis of atrial fibrillation and does not usually feel it but sometimes is more fatigued with her A-fib. Only takes a baby aspirin daily for anticoagulation and her metoprolol 50mg twice daily. Her last office visit with cardiology was April [address] Anna. thinks that her next visit is in April. Denies any increase in symptoms. Does have diagnosis of osteoporosis and was on Boniva in the past. Declines further bone density screenings. Discussed preventative care including colonoscopy mammogram bone density screening. Declines all of the above. Osteoporosis screening last completed 02/13/2022 She reports today she has been having a lot of trouble with her left knee. She fell 2-1/2 weeks ago in her home when she was getting up to walk. Mchenry some sort of instability and weakness in her left leg and fell out of the blue. Denies any history of recent dizziness vertigo or presyncope type feeling. Discussed her blood pressure is on the lower side of normal but she feels that her fall was secondary to her knee.She does have pain in her left knee but also feels that she cannot bear much weight on it. Feels her balance is off due to this. SILKE BERGMAN, VER[address], [place], [address], [facility]. 01/17/2024 23:27:15 OBGyn Episode No OBEpisode recorded.
== END 2024-04-18 15:33 | disposition home or self-care (01) ==
LOC: LBO 15:33
PROVIDERS: PCP Nurse Practitioner Family; Visit Provider Nurse Practitioner Family
DX: I10 Essential (primary) hypertension (principal)
CPT/HCPCS: 36415; 80053; 93005; 85025; 99213

== ENCOUNTER 2024-04-18 16:39 | Outpatient (REF) | payer MEDICARE, SELFPAY ==
[2024-04-21 16:48] LABS: Phenytoin, Free 2.5 mcg/mL (1.0 - 2.0); Phenytoin, Total 29.3 mcg/mL
== END 2024-04-18 16:40 | disposition home or self-care (01) ==
LOC: NCHCN 16:39
PROVIDERS: PCP Nurse Practitioner Family; Visit Provider Nurse Practitioner Family
DX: G40.909 Epilepsy, unspecified, not intractable, without status epilepticus (principal)
CPT/HCPCS: 80186; 80185

== ENCOUNTER 2024-04-21 09:13 | Inpatient (IN) | payer MEDICARE, SELFPAY ==
[2024-04-21] VITALS (28 sets, daily range): BP systolic 90–114; BP diastolic 52–78; PULSE 87–144; RESP 15–29; TEMP 37–37.6; O2SAT 85–95
--- NOTE | 2024-04-21 09:15 | RT.EKG_ITS ---
APPROVED REPORT Exam: Resting ECG Reason for Exam: Fall Patient Location: E HR:116 bpm ECG Measurements Heart Rate 116 [address] [place] [id number] P [id number] QRSd 83 QRS 59 QT 301 T 269 QTc 419 Conclusion Atrial fibrillation...V-rate 93-142, No STEMI Compared to priors, ventricular rate has increased Non-specific repolarization abnormalities, diffuse
--- NOTE | 2024-04-21 09:32 | ED.GENADUL_ITS ---
Discharge Plan Disposition Patient Disposition: Admit to [facility] Condition: Stable Discharge Details Clinical Impression: Closed fracture of greater trochanter of right femur, Focal epilepsy, Afib, Osteoporosis, Accidental fall from chair Primary Care Provider: Silke Bergman ED Provider: Natasha Naranjo Home Meds and New Rx's Prescriptions: No Action betamethasone valerate 0.1 % cream 1 applic topical BID Qty: 45 0RF Rx Instructions: Apply pea-sized amount to uretheral irritation twice daily for 2 weeks aspirin [Adult Aspirin Regimen] 81 mg tablet,delayed release (DR/EC) 81 mg PO DAILY Patient Comments: pt reports taking twice daily mecobalamin (vitamin B12) 1,000 mcg tablet,chewable 1,000 mcg PO DAILY multivitamin [Daily Multi-Vitamin] 1 EACH tablet 1 ea PO DAILY metoprolol tartrate 50 MG tablet 50 mg PO BID ibuprofen [Advil] 200 mg tablet 200 mg PO Q12H PRN phenytoin sodium extended [Dilantin Extended] 100 mg capsule 200 mg PO TID HPI General Date/Time Provider Initiated Documentation: 04/21/24 09:19 . Limitations to Documentation: no limitations . Information obtained by: patient and EMS . HPI Narrative: MDM: In brief, this is a 78-year-old female patient with a history of atrial fibrillation not on anticoagulation who is presenting with EMS after a fall with prolonged downtime. Differential includes but is not limited to pelvis fracture, pelvis dislocation, femur fracture. There is no evidence of neurovascular injury distal to her right hip pain. I certainly considered spinal fracture, most concerning based on her mechanism would be a lumbar compression fracture, though reassuringly the patient has no tenderness to spinal palpation, no step-offs, and did not land directly on her bottom. The patient did not have head strike and is without head or neck pain to suggest intracranial hemorrhage, skull fracture, cervical spine fracture. I considered metabolic and electrolyte derangements, rhabdomyolysis, kidney injury, dehydration. The etiology of the fall is described as mechanical in nature, though I certainly considered medical abnormalities to include arrhythmia, NM. No loss of consciousness prior to the event to suggest syncope or orthostasis. ED Course: We obtained a right hip and pelvis x-ray, as well as laboratory studies to include CBC, CMP, troponin, CK, PT/INR. The patient was made n.p.o. but at this time does not require any medications for management of pain. I independently interpreted this patient's x-ray, which does show a right greater trochanter fracture that is nondisplaced. The patient remains with difficulty tolerating movement of the hip and I am concerned that she will not be successful in the outpatient environment. I did discuss this patient's case with our orthopedic PA, who recommended a CT scan to evaluate for occult femoral neck fracture, which would require surgery. At baseline, the patient is largely nonambulatory, using a walker or wheelchair for occasional ambulation, though is typically able to bear weight. An isolated greater trochanter fracture would not require emergent surgery, and could likely be managed in the inpatient environment with physical therapy and potential placement. We reviewed the patient's laboratory studies, which does not show any concerning kidney injury or creatinine or CK elevation to suggest rhabdomyolysis. The patient is otherwise without leukocytosis, anemia or thrombocytopenia, has a negative troponin and no significant electrolyte derangements. CT was independently reviewed by myself, shows the above-noted greater trochanter fracture but no associated femoral neck fracture. Given this finding the decision was made to admit this patient to the hospitalist service at [facility] for nonoperative support, physical therapy, and ongoing management of symptoms. I did notice persistent tachycardia during her time in the emergency department, for which she was provided with a small 500 cc bolus of lactated Ringer's without significant change appreciated. The patient did have a hemodynamically appropriate blood pressure throughout her time under my care. She was noted to have a mild hypoxia during sleep down to 87/88% on room air, does not wear oxygen at home. I suspect that this is likely atelectasis due to her nonfocal pulmonary examination, but did obtain a chest x-ray to evaluate for abnormalities, which did not show any significant acute findings to account for her mild hypoxia on my independent interpretation. I did provide her with her home dose of metoprolol for her ongoing mild tachycardia. The patient was transferred from our department to the floor without incident, without further changes while under my care. Natasha Naranjo MD HPI: This is a 78-year-old female patient with a past medical history most significant for atrial fibrillation not on anticoagulation, hypertension, and a seizure disorder on Dilantin, presenting for evaluation after a fall. The patient reports that she was going to sit on a chair at the end of her night last night, and did not realize the only 3 of the legs of the chair were on the sturdy surface. When she sat it slipped out from under her and she fell to her right side landing on her right hip. She did not strike her head, lose consciousness, or landed directly on her bottom. She reports that prior to this event she was in her normal state of health and did not experience dizziness, loss of consciousness, or chest pain. The patient was unable to get up from the floor, called for help but was not able to be rescued until this morning when he 3, summoned EMS. She has significant pain in the right hip with movement, but was hemodynamically appropriate other than some mild tachycardia and was transported without incident to our facility. The patient reports that her pain is exclusively in her right hip. She is specifically not experiencing any head pain, neck pain, back pain, or lower leg pain. She did not injure her upper extremities and has no chest or abdomen pain. She reports that she was otherwise taking her medications normally, and has not received any medications prior to arrival to our facility. She is not experiencing numbness but does have some occasional tingling in her right toes, denies weakness but is unable to move her leg due to pain. Exam: Gen: Awake and alert, in no apparent distress HEENT: Non-icteric sclera, pupils equal and reactive bilaterally Neck: Supple, no tenderness to palpation of the cervical spine at the midline, no step-offs Lungs: No apparent respiratory distress, normal respiratory effort. CV: Appears well perfused, strong symmetrical distal pulses Abdomen: Non-distended, soft, no tenderness, guarding, rigidity MSK: Pelvis is stable to AP compression, there is no obvious deformity of the pelvis or right lower extremity, does have tenderness to palpation over the lateral aspect of the right pelvis. Significant reproduction of pain with flexion of the right lower extremity, preventing evaluation of of internal and external rotation at the hip. No overlying skin changes appreciated. No tenderness or step-offs to palpation of the C/T/L-spine. Chest wall is stable and without crepitus or tenderness to compression. Bilateral upper extremities and left lower extremity without external signs of trauma, pain, or limitation in range of motion. Skin: Visualized skin without rashes, cyanosis. Neuro: Unable to ambulate, otherwise face is symmetrical and with the exception of the right lower extremity noted above there is no obvious motor or sensory deficits. CSM's intact and symmetrical bilateral lower extremities. Psych: Appropriate for situation. Related Data Home Medications ?Medication ?Instructions ?Recorded ?Confirmed metoprolol tartrate 50 mg tablet 50 mg PO BID 11/29/17 04/21/24 multivitamin (Daily Multi-Vitamin 1 ea PO DAILY 11/29/17 04/21/24 tablet) mecobalamin (vitamin B12) 1,000 1,000 mcg PO DAILY 07/30/20 04/21/24 mcg chewable tablet betamethasone valerate 0.1 % 1 applic topical BID #45 grams 09/16/21 04/21/24 topical cream ibuprofen 200 mg tablet (Advil) 200 mg PO Q12H PRN 03/05/22 04/21/24 aspirin 81 mg tablet,delayed 81 mg PO DAILY 04/13/23 04/21/24 release (Adult Aspirin Regimen) phenytoin sodium extended 100 mg 200 mg PO TID 02/15/24 04/21/24 capsule (Dilantin Extended) Previous Rx's ?Medication ?Instructions ?Recorded betamethasone valerate 0.1 % 1 applic topical BID #45 grams 09/16/21 topical cream Allergies Allergy/AdvReac Type Severity Reaction Status Date / Time Penicillins Allergy Intermediate Hives Verified 04/21/24 09:22 cat dander Allergy Mild Hives Verified 04/21/24 09:22 General Stated Complaint: Fall/Non TraumaCriteria RADHA: 3 Course Vital Signs Vital signs: Vital Signs Temperature 37.1 C 04/21/24 09:16 Pulse 115 H 04/21/24 09:16 Respiratory Rate 04/21/24 09:16 Blood Pressure 114/78 04/21/24 09:16 Pulse Oximetry 93 04/21/24 09:16 Temperature 37.1 C 04/21/24 09:16 Temperature Source Oral 04/21/24 09:16 Pulse 115 H 04/21/24 09:16 Respiratory Rate 04/21/24 09:16 Blood Pressure 114/78 04/21/24 09:16 Blood Pressure Position Sitting 04/21/24 09:16 Pulse Oximetry 93 04/21/24 09:16 Oxygen Delivery Method Room Air 04/21/24 09:16 Oxygen Flow Rate 0 04/21/24 09:16 Pain Level 3 04/21/24 09:16 Medical Decision Making Quality:SDOH Health Related Social Needs: No Data to Display PFSH All Active Problems (Updated 04/21/24 @ 12:30 by Natasha Naranjo MD) Accidental fall from chair (Acute) Closed fracture of greater trochanter of right femur (Acute) Hemangioma (Acute) liver Gait abnormality (Acute) Depressed (Chronic) Contusion of left heel (Acute) Anxiety (Chronic) Afib (Chronic) Right carpal tunnel syndrome (Acute) Numbness of right hand (Acute) 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) B12 deficiency (Acute) Osteoporosis (Chronic) Focal epilepsy (Acute 01/03/18) Cerebral cavernoma (Acute 04/27/18) Medical History Pain of right hip joint Carpal tunnel syndrome Seizure Senile osteoporosis Arthralgia of ankle Knee joint laxity Disorder of urethra Essential hypertension Visual disturbance Epilepsy Anxiety disorder Mild recurrent major depression Seizure disorder HLD (hyperlipidemia) Urethral prolapse Low back pain Fatigue Osteoarthritis GERD (gastroesophageal reflux disease) Hypertension Surgical History H/O cataract extraction S/P appendectomy H/O breast biopsy S/P wrist surgery Family History Father Hyperlipidemia Heart disease Sister Alcohol abuse Maternal Grandmother Family hx-stroke Maternal Grandfather Heart disease Social History Smoking/Tobacco Use Status: Former Tobacco Use tobacco type: cigarettes Quit Date: 09/13/69 Smoking risk assessment performed?: Yes Alcohol Intake: current Alcohol Intake frequency: holidays/special occasions only Drug use: Never Substance use type: does not use Housing: house Number of Children: 1 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
[2024-04-21 09:39] LABS: Abs Immature Grans 0.03 10^3/uL (0.0-0.06); Absolute Lymphocyte Count 0.57 10^3/uL (1.2-3.4); Absolute Monocyte Count 0.67 10^3/uL (0.1-0.8); Absolute Neutrophil Count 11.57 10^3/uL (1.2-6.7); Basophils % 0.2 %; HCT 39.9 % (36.0-46.0); HGB 13.5 g/dL (11.2-15.7); Immature Grans % 0.2 %; Lymphocytes % 4.4 %; MCH 35.1 pg (27.0-33.0); MCHC 33.8 % (32.0-36.0); MCV 104 fL (80-95); MPV 9.4 fL (8.0-11.0); Monocytes % 5.2 %; Platelet Count 156 10^3/uL (130-400); RBC 3.85 10^6/uL (3.93-5.22); RDW-SD 45.5 fL; WBC 12.86 10^3/uL (4.4-10.8)
[2024-04-21 09:49] LABS: INR 1.2 (0.9-1.1)
[2024-04-21 09:58] LABS: ALT 11 U/L (14-59); AST 21 U/L (15-37); Albumin 3.4 g/dL (3.4-5.0); Alkaline Phosphatase 155 U/L (46-116); Anion Gap 5.3 mmol/L (3-11); BUN 13 mg/dL (7-18); Bilirubin, Total 0.91 mg/dL (0.2-1.0); CO2 30.7 mmol/L (21.0-32.0); CREATININE 0.7 mg/dL (0.55-1.02); Calcium 8.4 mg/dL (8.5-10.1); Chloride 103 mmol/L (98-107); Creatine Kinase 76 U/L (26-192); Estimated GFR 89.58 (mL/min/1.73m2); Glucose 157 mg/dL (74-106); Potassium 4.1 mmol/L (3.5-5.1); Sodium 139 mmol/L (136-145); Total Protein 7.6 g/dL (6.4-8.2); Troponin I < 50 ng/L (< or =60)
[2024-04-21 10:19] LABS: Absolute Basophil Count 0.03 10^3/uL (0.0-0.2)
--- NOTE | 2024-04-21 10:26 | DI.RAD_ITS ---
Exam(s) XR FEMUR RT EXAM: XR FEMUR RT CLINICAL HISTORY: Fall, cannot bear weight. TECHNIQUE: 2D digital imaging was performed. COMPARISON: No exams were available for comparison FINDINGS: Two views. There is a subtle nondisplaced fracture in the greater trochanter the hip. No other fractures identi fied in the femur. Advanced osteoarthritic degenerative in the hip. IMPRESSION: Subtle fracture right hip greater trochanter, nondisplaced. Advanced osteoarthritic degenerative changes in the ipsilateral hip DATA REPOSITORY: RADIATION DOSE DELIVERED:
--- NOTE | 2024-04-21 10:26 | DI.RAD_ITS ---
Exam(s) XR HIP RT AP LAT ONLY EXAM: XR HIP RT AP LAT ONLY CLINICAL HISTORY: Fall, cannot bear weight. TECHNIQUE: 2D digital imaging was performed. COMPARISON: None FINDINGS: Two dedicated views of the right hip There are advanced osteoarthritic degenerative changes in the hip joint with [id number] narrowing a nd degenerative subarticular cysts and femoral head osteophytes. In addition, there is linear lucency in the superior aspect of the greater trochanter consistent with probable fracture, nondisplaced. IMPRESSION: Nondisplaced fracture at superior aspect of the greater trochanter of the right hip. Advanced osteoarthritic degenerative changes in the right hip also noted. DATA REPOSITORY: RADIATION DOSE DELIVERED:
--- NOTE | 2024-04-21 10:45 | DI.CT_ITS ---
Exam(s) CT PELVIC WO EXAM: CT PELVIC WO CLINICAL HISTORY: R. greater trochanter fx, eval surgical neck. TECHNIQUE: Imaging Protocol: Axial computed tomography images with coronal and sagittal reformatted images were created and reviewed CONTRAST MATERIAL: Intravenous: none Oral: None COMPARISON: CR XR FEMUR RT from 04/21/2024 FINDING: PELVIS: OSSEOUS: There is a nondisplaced transverse fracture in the superior aspect of the greater trochanter of the right hip, this corresponding to the subtle finding on plain x-rays earlier today. No other fractures identified.There are advanced osteoarthritic degenerative changes in both hips with symmetr ical [id number] joint space narrowing in the hips as well as degenerative subarticular cysts in bot h hips and bilateral femoral head osteophytes. No other fractures in the pelvis identified. Sacrum and SI joints are intact. Pubic rami are intact . SOFT TISSUES: There is moderate size soft tissue hematoma over the lateral aspect of the right hip gr eater trochanter fracture site. There is no hematoma in the subcutaneous fat over this area nor with in the pelvic cavity.. ANTERIOR ABDOMINAL WALL/GI:No evidence of significant anterior abdominal wall nor inguinal hernia in the pelvis evident.No obvious bowel obstruction. Sigmoid diverticulosis without evidence of acute di verticulitis. LYMPH NODES: There is no intrapelvic nor inguinal adenopathy. URINARY BLADDER: Moderately distended. Otherwise unremarkable. REPRODUCTIVE: Uterus and adnexal regions are age-appropriate. No free fluid in the pelvis.. IMPRESSION: 1. Nondisplaced predominately transverse fracture in the superior aspect of the right hip greater tro chanter. Adjacent moderate size hematoma evident. 2. Severe advanced osteoarthritic degenerative changes in both hips noted 3. No evidence of intrapelvic hematoma. Called by myself to ER. RADIATION DOSE DELIVERED: Total DLP DATA REPOSITORY: All CT scans at this facility are submitted to the National Radiology Data Registry (NRDR) Dose Index Registry (DIR) with the [employer] (ACR). RADIATION OPTIMIZATION: All CT scans at this facility use at least one of these dose optimization te chniques: automated exposure control; mA and/or kV adjustment per patient size (includes targeted exa ms where dose is matched to clinical indication); or iterative reconstruction.
[2024-04-21] MEDS: Lactated Ringers 500 ML IV (11:12)
--- NOTE | 2024-04-21 12:15 | DI.RAD_ITS ---
Exam(s) XR PORTABLE CHEST AP EXAM: XR PORTABLE CHEST AP CLINICAL HISTORY: hypoxia. TECHNIQUE: 2D digital imaging was performed. COMPARISON: No exams were available for comparison FINDINGS: Single AP portable view. Mild cardiomegaly. Mediastinum not widened. Lungs are clear. No infiltrates nor obvious pleural effusions. IMPRESSION: No acute pulmonary findings on this single AP portable view of the chest. DATA REPOSITORY: RADIATION DOSE DELIVERED:
--- NOTE | 2024-04-21 12:24 | HPE_ITS ---
Date of service: 04/21/24 Time of Service: 12:25 Assessment and Plan Assessment and plan (1) Closed fracture of greater trochanter of right femur: Status: Acute Assessment and plan: -as seen on xray and confirmed on CT -non-operative management as per Ortho -continue PRN pain management -appreciate PT evaluation and Care Management assistance in likely rehab placement (2) Accidental fall from chair: Status: Acute Assessment and plan: -cause of fracture as noted above -no other injuries noted (3) Gait abnormality: Status: Acute (4) Afib: Status: Chronic Assessment and plan: -continue home asa and toprol-XL Qualifiers: Atrial fibrillation type: permanent Qualified Code(s): I48.21 - Permanent atrial fibrillation (5) Focal epilepsy: Status: Acute Assessment and plan: -continue home dilantin History of Present Illness History of Present Illness Chief Complaint: fall Narrative: 78-year-old female A-fib not on Eliquis, hypertension, seizures on Dilantin who presents to the emergency department after experiencing a fall. Patient states that she was sitting on her chair at the end of her night and did not realize it only 3 of the legs of the chair were sterilely on the surface which caused her to slip out and fall onto the right side of her hip she did not strike her head or lose consciousness which she reports that she was in her normal state of health eating up to this and did not have any dizziness or chest pain. However, after the fall she was unable to get up from the floor or call from help who was rescued earlier this morning when she was able to summon EMS. She has significant pain in her right hip with movement upon arrival had normal vital signs, CBC and CMP. However, initial x-ray showed right greater trochanteric fracture that was nondisplaced. This was discussed with orthopedic PA who recommended CT scan to evaluate for occult femoral neck fracture which would require surgery, but if it was just nondisplaced right greater trochanter fracture this would not require operative management. Of note, patient uses a walker or wheelchair for occasional ambulation though she is typically minimally ambulatory at baseline. CT did show and confirm greater trochanter fracture nondisplaced but without femoral neck fracture. At which time emergency room physician page hospitalist for admission for patient with a fracture of the right greater trochanter that is nonoperative and will require inpatient pain management, PT evaluation and likely subacute rehab placement. 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) B12 deficiency (Acute) Osteoporosis (Chronic) Focal epilepsy (Acute 01/03/18) Cerebral cavernoma (Acute 04/27/18) Medical History Pain of right hip joint Carpal tunnel syndrome Seizure Senile osteoporosis Arthralgia of ankle Knee joint laxity Disorder of urethra Essential hypertension Visual disturbance Epilepsy Anxiety disorder Mild recurrent major depression Seizure disorder HLD (hyperlipidemia) Urethral prolapse Low back pain Fatigue Osteoarthritis GERD (gastroesophageal reflux disease) Hypertension Surgical History H/O cataract extraction S/P appendectomy H/O breast biopsy S/P wrist surgery Family History Father Hyperlipidemia Heart disease Sister Alcohol abuse Maternal Grandmother Family hx-stroke Maternal Grandfather Heart disease Social History Smoking/Tobacco Use Status: Former Tobacco Use tobacco type: cigarettes Quit Date: 09/13/69 Smoking risk assessment performed?: Yes Alcohol Intake: current Alcohol Intake frequency: holidays/special occasions only Drug use: Never Substance use type: does not use Housing: apartment Number of Children: 1 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 gender 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 Meds Allergies and Home Medications Allergies Allergy/AdvReac Type Severity Reaction Status Date / Time Penicillins Allergy Intermediate Hives Verified 04/21/24 09:22 cat dander Allergy Mild Hives Verified 04/21/24 09:22 Home Medications ?Medication ?Instructions ?Recorded ?Confirmed ?Type metoprolol tartrate 50 mg tablet 50 mg PO BID 11/29/17 04/21/24 History multivitamin (Daily Multi-Vitamin 1 ea PO DAILY 11/29/17 04/21/24 History tablet) mecobalamin (vitamin B12) 1,000 1,000 mcg PO DAILY 07/30/20 04/21/24 History mcg chewable tablet betamethasone valerate 0.1 % 1 applic topical BID #45 grams 09/16/21 04/21/24 Rx topical cream ibuprofen 200 mg tablet (Advil) 200 mg PO Q12H PRN 03/05/22 04/21/24 History aspirin 81 mg tablet,delayed 81 mg PO DAILY 04/13/23 04/21/24 History release (Adult Aspirin Regimen) phenytoin sodium extended 100 mg 200 mg PO TID 02/15/24 04/21/24 History capsule (Dilantin Extended) Exam Narrative Exam Narrative: well appearing elderly female laying in bed in no acute distress, AOx4, heart RRR, lungs CTAB, abdomen soft, non-tender, non-distended Results Labs 04/21/24 09:30 04/21/24 09:30 Labs: Laboratory Results - last 24 hr 04/21/24 09:30 WBC 12.86 H RBC 3.85 L Hgb 13.5 Hct 39.9 MCV 104 H MCH 35.1 H MCHC 33.8 RDW 12.0 Plt Count 156 MPV 9.4 Immature Gran % 0.2 Neutrophils % 90.0 Lymphocytes % 4.4 Monocytes % 5.2 Eosinophils % 0.0 Basophils % 0.2 Nucleated RBC % 0.0 Absolute Neutrophils 11.57 H Absolute Lymphocytes 0.57 L Absolute Monocytes 0.67 Absolute Eosinophils 0.00 Absolute Basophils 0.03 PT 12.0 H INR 1.2 H Sodium 139 Potassium 4.1 Chloride 103 Carbon Dioxide 30.7 Anion Gap 5.3 BUN 13 Creatinine 0.7 Est GFR (CKD-EPI 2020) 89.58 Glucose 157 H Calcium 8.4 L Total Bilirubin 0.91 AST 21 ALT 11 L Alkaline Phosphatase 155 H Creatine Kinase 76 Troponin I < 50 Total Protein 7.6 Albumin 3.4 Last Vital Signs Temp 98.8 F 04/21/24 09:16 Pulse 96 H 04/21/24 11:15 Resp 21 04/21/24 11:15 BP 111/58 L 04/21/24 11:15 Pulse Ox 91 L 04/21/24 11:15 Time Spent Time spent with Patient: >75 minutes Time was spent: preparing to see the patient(eg.review tests), obtaining and/or reviewing separately otained hiistory, ordering medications,tests, procedures, referring, communicating with other health resident care assistant, indepentently interpreting results, counseling the patient and care coordination
[2024-04-21] MEDS: Metoprolol 50 MG TAB PO ×2 (12:53→22:06)
--- NOTE | 2024-04-21 13:10 | W.PC.ACHO ---
Registration Status: Primary Language: Preferred Language: ED Information & Data Chief Complaint Fall/Non TraumaCriteria 04/21/24 11:12 Chief Complaint Fall/Non TraumaCriteria 04/21/24 09:33 Triage Note chair slipped out from 04/21/24 09:16 underneath her at 11:15 last night, pt was unable to get up off the floor. Able to get ahold of someone this morning, EMS attempted to sit her up but it was too painful. Denies hitting head , no LOC. Medical / Surgical History (Last Reviewed 04/18/24 @ 13:52 by Annette Anna MD) Pain of right hip joint Carpal tunnel syndrome Seizure Senile osteoporosis Arthralgia of ankle Knee joint laxity Disorder of urethra Essential hypertension Visual disturbance Epilepsy Anxiety disorder Mild recurrent major depression Seizure disorder HLD (hyperlipidemia) Urethral prolapse Low back pain Fatigue Osteoarthritis GERD (gastroesophageal reflux disease) Hypertension (Last Reviewed 04/18/24 @ 13:52 by Annette Anna MD) H/O cataract extraction S/P appendectomy H/O breast biopsy S/P wrist surgery Most Recent Vital Signs Temperature 37.1 C 04/21/24 09:16 Temperature Source Oral 04/21/24 09:16 Pulse 106 H 04/21/24 12:51 Pulse 129 H 04/21/24 12:52 Respiratory Rate 27 H 04/21/24 12:52 Respiratory Effort Normal, Non-Labored 04/21/24 11:12 Blood Pressure 111/73 04/21/24 12:51 Blood Pressure Mean 83 04/21/24 12:51 Blood Pressure Position Sitting 04/21/24 09:16 Pulse Oximetry 93 04/21/24 12:52 Oxygen Delivery Method Nasal Cannula 04/21/24 12:25 Oxygen Flow Rate 2 04/21/24 12:25 Pain Level 3 04/21/24 09:16 Allergies Penicillins Allergy (Intermediate, Verified 04/21/24 09:22) Hives cat dander Allergy (Mild, Verified 04/21/24 09:22) Hives Precautions Isolation Standard precaution 04/21/24 11:12 IV IV Catheter Type [Right Wrist] Peripheral IV IV Catheter Gauge [Right Wrist 20 ] Diet Orders Category Date Time Status Regular/Normal [DIET] Nutrition 04/21/24 Dinner Active Diagnostics 04/21/24 Range/Units 09:30 WBC 12.86 H (4.4-10.8) 10^3/uL RBC 3.85 L (3.93-5.22) 10^6/uL Hgb 13.5 (11.2-15.7) g/dL Hct 39.9 (36.0-46.0) % MCV 104 H (80-95) fL MCH 35.1 H (27.0-33.0) pg MCHC 33.8 (32.0-36.0) % RDW 12.0 (11.7-14.6) % Plt Count 156 (130-400) 10^3/uL MPV 9.4 (8.0-11.0) fL Immature Gran % 0.2 % Neutrophils % 90.0 % Lymphocytes % 4.4 % Monocytes % 5.2 % Eosinophils % 0.0 % Basophils % 0.2 % Nucleated RBC % 0.0 (0.0-0.3) % Absolute Neutrophils 11.57 H (1.2-6.7) 10^3/uL Absolute Lymphocytes 0.57 L (1.2-3.4) 10^3/uL Absolute Monocytes 0.67 (0.1-0.8) 10^3/uL Absolute Eosinophils 0.00 (0.0-0.7) 10^3/uL Absolute Basophils 0.03 (0.0-0.2) 10^3/uL PT 12.0 H (9.1-11.1) sec INR 1.2 H (0.9-1.1) Sodium 139 (136-145) mmol/L Potassium 4.1 (3.5-5.1) mmol/L Chloride 103 (98-107) mmol/L Carbon Dioxide 30.7 (21.0-32.0) mmol/L Anion Gap 5.3 (3-11) mmol/L BUN 13 (7-18) mg/dL Creatinine 0.7 (0.55-1.02) mg/dL Est GFR (CKD-EPI 2020) 89.58 (mL/min/1.73m2) Glucose 157 H (74-106) mg/dL Calcium 8.4 L (8.5-10.1) mg/dL Total Bilirubin 0.91 (0.2-1.0) mg/dL AST 21 (15-37) U/L ALT 11 L (14-59) U/L Alkaline Phosphatase 155 H (46-116) U/L Creatine Kinase 76 (26-192) U/L Troponin I < 50 (< or =60) ng/L Total Protein 7.6 (6.4-8.2) g/dL Albumin 3.4 (3.4-5.0) g/dL Intake and Output - 24 Hour Total 04/21/24 09:11 thru 04/21/24 12:24 Intake Total 510 Balance 510 Weight 64.864 kg Intake: IV 510 Falls Risk Assessment History of Falls Admit Due to Fall 04/21/24 11:12 Contributing Factors Impairments 04/21/24 11:12 Ambulatory Aids Uses ambulatory device + 04/21/24 11:12 Tubes/Lines With any additional score 04/21/24 11:12 Gait Evaluation W/no contributing factors 04/21/24 11:12 Cognition No cognitive impairment 04/21/24 11:12 Fall Total Score 88 04/21/24 11:12 Level of Risk Maximum Risk 04/21/24 11:12 Problems (Last Reviewed 04/18/24 @ 13:52 by Annette Anna MD) Accidental fall from chair (Acute) Closed fracture of greater trochanter of right femur (Acute) Gait abnormality (Acute) Afib (Chronic) 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 Information / Comments: S: Pt lives alone and fell last night at home, unable to get up. Somehow was able to call someone this morning and they activated EMS. She has a small non-displaced fx of the right greater trochanter which is non surgical. B: HX of a fib, takes meptoprolol 50mg BID for rate control baseline. Uses a cane or walker at home. Dtr's name is Chanel Wilburn. A: VS from ED: 37.1, 111/73, 106, 20, 93% on 2L nc, no pain when resting. Increased WBCs in ED, 500 ml LR bolus for soft BP R: Monitor and PT Report received from: Loren at 12:58
--- NOTE | 2024-04-21 15:53 | NUR.NOTE ---
Nursing Note: Spoke to dtr Chanel Wilburn on the phone, on HIPPA form. Chanel will be in tomorrow around noon, she lives in [place], [place]. Pt does not have DPO[employer] paperwork that Chanel knows of, but will try to find it at pt's apartment tomorrow. Chanel last saw last Lakeisha.
[2024-04-21] MEDS: Enoxaparin 40 MG/0.4 ML SYR SC (16:08)
[2024-04-21] MEDS: Normal Saline Flush 10 ML SYR IVP (22:02)
[2024-04-21] MEDS: Acetaminophen 325 MG TAB PO (23:00)
[2024-04-22] VITALS (7 sets, daily range): BP systolic 99–107; BP diastolic 57–78; PULSE 85–119; RESP 15–18; TEMP 36.1–37.7; O2SAT 92–95
[2024-04-22 06:40] LABS: HCT 34.4 % (36.0-46.0); HGB 11.7 g/dL (11.2-15.7); MCH 34.9 pg (27.0-33.0); MCV 103 fL (80-95); MPV 10.1 fL (8.0-11.0); Platelet Count 142 10^3/uL (130-400); RBC 3.35 10^6/uL (3.93-5.22); RDW 12.2 % (11.7-14.6); RDW-SD 46.1 fL; WBC 9.74 10^3/uL (4.4-10.8)
[2024-04-22 06:50] LABS: Anion Gap 7.9 mmol/L (3-11); BUN 16 mg/dL (7-18); CO2 29.1 mmol/L (21.0-32.0); CREATININE 0.7 mg/dL (0.55-1.02); Calcium 8.1 mg/dL (8.5-10.1); Chloride 103 mmol/L (98-107); Estimated GFR 89.58 (mL/min/1.73m2); Glucose 108 mg/dL (74-106); Magnesium 1.5 mg/dL (1.8-2.4); Potassium 3.4 mmol/L (3.5-5.1); Sodium 140 mmol/L (136-145)
[2024-04-22] MEDS: Metoprolol 50 MG TAB PO ×2 (08:26→19:40)
[2024-04-22] MEDS: Aspirin E.C. 81 MG TABEC PO (08:26)
--- NOTE | 2024-04-22 09:00 | INITIAL_ITS ---
Date of service: 04/22/24 Time of Service: 09:00 Care Management Initial Assmt Initial Assessment Reason for Hospitalization: Right greater trochanter fracture Functional Status/Living Situation Patient Presentation: Brooklyn was sitting up in bed when CM met with her. She was pleasant and engaged in conversation. She discussed how she and her daughter, Chanel, moved from [place] to [place] in 1997. 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 Her daughter is a nurse, and lives in [place] with her family. Brooklyn stated that she has a group of very good friends who are supportive; they all used to live in the same building and have stayed connected. She lives alone on a first floor apartment with a ramp. She reported that she is independent with ADLs, using a cane or walker, and utilizes a taxi for transportation. She reported that she is doing well today, but has a lot of pain with movement. CM discussed discharge considerations, and Brooklyn stated that she would prefer to return home, and does not like the idea of going to rehab, but understands that her pain may limit her functioning. PT will evaluate her today, which will help determine her discharge plan. CM will continue to follow. 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) Instrumental Activities of Daily Living (ADLs): Independent Medications Medication Management: No Issues/Barriers identified Physical Functioning/Mobility Assistive Device: cane, FWW, 4WW Advance Directives Advance Directives: Do you have an Advance Directive: N 02/02/18 11:10 AD On File at [facility]: N 02/02/18 11:10 Date Asked 04/18/24 04/18/24 15:33 AD Date Reviewed COLST On File at [facility] COLST Date Scanned Code Status Resuscitation Status Full Code Insurance Coverage/Financial Issues Insurance: [facility] Care Team Visit Care Team Role Provider Type Silke Bergman Primary Care Provider NURSE PRACTITIONER Natasha Naranjo MD Emergency Provider [facility] STAFF PHYSICIAN Melvin Ricketts MD Admit Provider [facility] STAFF PHYSICIAN Attending Provider Discharge Potential Discharge Needs: PT Evaluation, PCP F/U Appt and Other (possible SNF placement) Anticipated Barriers to Discharge: Bed availability Patient/Family Education Needs: Review discharge instructions, discuss Ask Me Three Transportation: RCT Plan: Brooklyn will be evaluated by PT to determine her level of functioning. She may require short term rehab, if she is not at her functional baseline vs home health services. Her disposition is to be determined. She will follow up with her PCP and discharge plan of care. CM will continue to follow. 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) Cerebral cavernoma (Acute 04/27/18) Medical History Pain of right hip joint Carpal tunnel syndrome Seizure Senile osteoporosis Arthralgia of ankle Knee joint laxity Disorder of urethra Essential hypertension Visual disturbance Epilepsy Anxiety disorder Mild recurrent major depression Seizure disorder HLD (hyperlipidemia) Urethral prolapse Low back pain Fatigue Osteoarthritis GERD (gastroesophageal reflux disease) Hypertension Surgical History H/O cataract extraction S/P appendectomy H/O breast biopsy S/P wrist surgery Family History Father Hyperlipidemia Heart disease Sister Alcohol abuse Maternal Grandmother Family hx-stroke Maternal Grandfather Heart disease Social History Smoking/Tobacco Use Status: Former Tobacco Use tobacco type: cigarettes Quit Date: 09/13/69 Smoking risk assessment performed?: Yes Alcohol Intake: current Alcohol Intake frequency: holidays/special occasions only Drug use: Never Substance use type: does not use Housing: apartment Number of Children: 1 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 Current gender 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 SDOH(Care Management) Screening Will the Patient Participate in the Screening?: Yes Do you worry about having a steady place to live?: yes Problems where you live: pests such as bugs, ants or mice and mold In the past 12 months, have you had to go without electric, gas, oil or water in your home?: yes Have you or anyone in your house had to go without enough food to eat?: no Has lack of transportation kept you from medical appointments or from doing things needed for daily living?: no Has anyone in your support network made you feel unsafe for any reason?: no Health Related Social Needs Health related social needs: inadequate housing(Z59.1), housing instability, housed, with risk of homelessness(Z59.811) and material hardship(utilities)(Z59.87)
[2024-04-22] MEDS: MAGNESIUM SULFATE 2 GM/50 ML BAG IVINF (10:08)
[2024-04-22] MEDS: POTASSIUM CHLORIDE 20 MEQ, POTASSIUM CHLORIDE 10 MEQ 30 MEQ PO (10:09)
[2024-04-22] MEDS: Normal Saline Flush 10 ML SYR IVP ×2 (10:10→19:42)
--- NOTE | 2024-04-22 12:57 | PGE_ITS ---
Date of Service Date of service: 04/22/24 Time of Service: 12:57 Assessment and Plan Assessment and plan (1) Closed fracture of greater trochanter of right femur: Status: Acute Assessment and plan: -as seen on xray and confirmed on CT -non-operative management as per Ortho -continue PRN pain management -PT and Care Management assistance to guide rehab placement vs home health when she is ready. Qualifiers: Encounter type: initial encounter Fracture alignment: nondisplaced Qualified Code(s): S72.114A - Nondisplaced fracture of greater trochanter of right femur, initial encounter for closed fracture (2) Accidental fall from chair: Status: Acute Assessment and plan: -cause of fracture as noted above -no other injuries noted (3) Afib: Status: Chronic Assessment and plan: -continue home asa and toprol-XL. Apixaban indicated but defer to PCP. Qualifiers: Atrial fibrillation type: permanent Qualified Code(s): I48.21 - Permanent atrial fibrillation (4) Focal epilepsy: Status: Acute Assessment and plan: - Free phenytoin level was high at 2.5. She has been on the current dose for years and no seizures in decades, she likely needs a lower dose due to aging. This may be affecting balance. Held last night and this morning, resume at 400mg day split BID (down from 600mg/day total dose) (5) Hypomagnesemia: Status: Acute Assessment and plan: low magnesium and potassium, both supplemented today. (6) Hypoxia: Status: Acute Assessment and plan: Mildly hypoxic on admission, now on 2 liters. Exam c/w atelectasis. No chest pain or syncope or signs of infection. Encourage mobilization and IS. Subjective Subjective Patient reports: tolerating a regular diet and voiding w/o difficulty; denies nausea or fever Interval history since last seen: Not in pain at rest, but afraid to move around because of pain with movement. Hasn't seen PT yet. Denies shortness of breath, but she is requiring some oxygen. Exam Narrative Exam Narrative: well appearing elderly female laying in bed in no acute distress, AOx4, heart RRR, lungs with normal effort, bibasilar rales posteriorly. abdomen soft, non- tender, non-distended. Ext no edema, moving feet normally. Objective Last Vital Signs Temp 37.5 C 04/22/24 11:26 Pulse 95 H 04/22/24 11:26 Resp 18 04/22/24 11:26 BP 104/57 L 04/22/24 11:26 Pulse Ox 93 04/22/24 11:26 Laboratory Results - last 24 hr 04/22/24 06:03 WBC 9.74 RBC 3.35 L Hgb 11.7 Hct 34.4 L MCV 103 H MCH 34.9 H MCHC 34.0 RDW 12.2 Plt Count 142 MPV 10.1 Sodium 140 Potassium 3.4 L Chloride 103 Carbon Dioxide 29.1 Anion Gap 7.9 BUN 16 Creatinine 0.7 Est GFR (CKD-EPI 2020) 89.58 Glucose 108 H Calcium 8.1 L Magnesium 1.5 L Time Spent with Patient Time Spent with Patient: 35-49 minutes Time was spent: preparing to see the patient(eg.review tests), obtaining and/or reviewing separately otained hiistory, ordering medications,tests, procedures, referring, communicating with other health clinical care leader, indepentently interpreting results, counseling the patient and care coordination
[2024-04-22] MEDS: Enoxaparin 40 MG/0.4 ML SYR SC (15:31)
[2024-04-22] MEDS: Docusate Sodium 100 MG CAP PO (19:40)
[2024-04-22] MEDS: Acetaminophen 325 MG TAB PO (19:40)
[2024-04-23] VITALS (7 sets, daily range): BP systolic 92–118; BP diastolic 65–92; PULSE 83–115; RESP 15–18; TEMP 36.1–37.2; O2SAT 93–95
[2024-04-23 06:36] LABS: HCT 33.7 % (36.0-46.0); HGB 11.4 g/dL (11.2-15.7); MCH 35.1 pg (27.0-33.0); MCHC 33.8 % (32.0-36.0); MCV 104 fL (80-95); Platelet Count 141 10^3/uL (130-400); RBC 3.25 10^6/uL (3.93-5.22); RDW 11.8 % (11.7-14.6); RDW-SD 44.8 fL; WBC 10.79 10^3/uL (4.4-10.8)
[2024-04-23] MEDS: Acetaminophen 325 MG TAB PO ×2 (07:13→19:45)
[2024-04-23 07:25] LABS: Anion Gap 8.2 mmol/L (3-11); BUN 10 mg/dL (7-18); CO2 27.8 mmol/L (21.0-32.0); CREATININE 0.6 mg/dL (0.55-1.02); Calcium 7.8 mg/dL (8.5-10.1); Chloride 102 mmol/L (98-107); Estimated GFR 92.97 (mL/min/1.73m2); Glucose 125 mg/dL (74-106); Magnesium 1.8 mg/dL (1.8-2.4); Potassium 3.8 mmol/L (3.5-5.1); Sodium 138 mmol/L (136-145); Vitamin B12 185 pg/mL (193-986)
[2024-04-23] MEDS: oxyCODONE 5 MG TAB PO (08:30)
[2024-04-23] MEDS: Metoprolol 50 MG TAB PO ×2 (08:31→19:44)
[2024-04-23] MEDS: Aspirin E.C. 81 MG TABEC PO (08:31)
--- NOTE | 2024-04-23 10:34 | PT.INIE ---
PT Notes Visit Reasons: Right Greater Trochanter Fracture Inpatient Physical Therapy Evaluation Date: 04/23/2024 Referring Doctor: Dr. 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 Her daughter states that it is very small and has a lot of clutter and throw rugs. Her daughter lives in [facility] and does not see her mother very often but has been told by friends that her mother does not move much. She believes that she mostly stays seated throughout her day. Pt states that she has both a rollator and a RW at home that she uses for ambulation. Current Functional Limitations: Pt has friends that do her grocery shopping. She does make her own meals but mostly uses the microwave. Equipment Owned/DME: Rollator and RW Subjective: Pt had an accidental fall off of a chair at home when reaching to turn off a fan. She was unable to get up by herself and unable to get to a phone for awhile. She is unsure how long she was on the ground for. She presented to the ED where it was found she had a closed fracture of her right hip. It was decided that she could be treated non-surgically. It does not look like she has been seen by orthopedics yet but this PT was told by nursing that they have been getting to the commode with WBAT and 2 assist. Objective: General Observation: Pt found in bed reading, happy to work with PT. Bruise present on RUE Mental Status: A+Ox4 Pain: Denies pain when not moving, describes stabbing pain in right hip when moving Vital Signs: Monitored by nursing, currently on 1 L/min but denies using supplemental O2 at baseline (discontinued for treatment - no signs of drop in SpO2) Strength: Right Lower Extremity: Unable to perform SLR in supine, able to demonstrate 5/5 ankle dorsiflexors, able to demonstrate LAQ in seated at EOB, unable to perform hip flexion while seated at EOB Left Lower Extremity: 4+/5 grossly throughout LLE Bed Mobility/Transfers: rolling L/R - mod assist supine to sit - mod assist sit to supine - mod assist sit to stand - min assist stand to sit - min assist Gait: unable to perform forward stepping today due to being unable to lift left foot off the ground due to pain during RLE stance; did perform lateral stepping x1 ft by dragging LLE and using significant bilat UE assist Balance: Static Sitting: able to perform unsupported Special Tests: Mobility Limitations Standardized Measure [facility] AM-PAC 6 clicks Basic Mobility Inpatient Short Form: Raw Score: 10 CMS Score: 76.75% Informed Consent/Education: Patient instructed in purpose of PT consult and plan of care. Assessment: Patient presents with functional deficits secondary to her closed R hip fracture. She was able to get into and out of the bed with mod assist of 1 but was unable to ambulate today due to the inability to perform RLE single limb support. She has limited mobility at baseline, per her daughter, but she still is unable to return to her prior living situation at her current functional state. She will benefit greatly from a short term rehab to help her gain the necessary strength needed to return home independently. A discussion was had with the patient today about rehab and she seemed to be in agreement. Case management made aware. Patient is assessed as a Mod 32226 complexity based on the following: History: [Mod] Examination: [Mod] Presentation: [Mod] Decision Making: [Mod] Goals: Goals X1 week 1. Supine-Sit w/CGA 2. Sit-Supine w/CGA 3. Sit-Stand w/CGA 4. Stand-Sit w/CGA 5. Bed-Chair w/CGA 6. Chair-Bed w/CGA 7. Gait - 50 ft w/CGA 8. Independent with home exercise program [] Plan of Care/Treatment Plan: 1-2x/day, 7 days/week x 1 week. Plan of care has been reviewed with the SURFACE SUPERVISOR providing the service under Physical Therapy direction. Initiate Physical Therapy intervention for strengthening, bed mobility, transfers, gait, stairs, balance training, use of assistive device. DISCHARGE RECOMMENDATIONS: It is recommended that the patient is d/c'd to short term rehab to help progress her functional strength to return home independently and safely. [x] SNF for continued rehabilitation TREATMENT CODE/TIME: [] Please sign an return this page within 30 days if you agree with the above POC. Thank you! Physician Signature Date [facility]
--- NOTE | 2024-04-23 13:07 | PGE_ITS ---
Date of Service Date of service: 04/23/24 Time of Service: 13:07 Assessment and Plan Assessment and plan (1) Closed fracture of greater trochanter of right femur: Status: Acute Assessment and plan: -as seen on xray and confirmed on CT -non-operative management as per Ortho -continue PRN pain management, encouraged to request prn pain medication before PT. -PT and Care Management have evaluated, she will need rehab placement Qualifiers: Encounter type: initial encounter Fracture alignment: nondisplaced Qualified Code(s): S72.114A - Nondisplaced fracture of greater trochanter of right femur, initial encounter for closed fracture (2) Accidental fall from chair: Status: Acute Assessment and plan: -cause of fracture as noted above -no other injuries noted -now working with PT, daughter is nurse and considering shelter options for assisted living after rehab (3) Afib: Status: Chronic Assessment and plan: -continue home asa and toprol-XL. Apixaban indicated but defer to PCP. Qualifiers: Atrial fibrillation type: permanent Qualified Code(s): I48.21 - Permanent atrial fibrillation (4) Focal epilepsy: Status: Acute Assessment and plan: - Free phenytoin level was high at 2.5. She has been on the current dose for years and no seizures in decades, she likely needs a lower dose due to aging. This may be affecting balance. Dose decreased to 400mg day split BID (down from 600mg/day total dose). F/u levels as outpatient. (5) Hypomagnesemia: Status: Acute Assessment and plan: low magnesium and potassium corrected. (6) Hypoxia: Status: Acute Assessment and plan: Mildly hypoxic on admission, now on 1 liter down from 2. Exam c/w atelectasis. No chest pain or syncope or signs of infection. Contnue to encourage mobilization and IS. She may have a baseline COPD given smoking exposure, but no overt exacerbation. Reconsider CXR, BNaP if she still needs O2 by tomorrow. Subjective Subjective Patient reports: no new complaints; denies nausea, shortness of breath or fever Interval history since last seen: Worked with PT, had lot of hip pain during sessoin (did not get oxycodone prior). Her breathing feels okay but she is still on 1 liter oxygen. No h/o COPD but she has remote smoking and second hand smoke history and she has an intermittent cough chronically. No change in that cough, no sputum. No seizure activity Exam Narrative Exam Narrative: well appearing elderly female sitting up in bed in no acute distress, AOx4, heart RRR, lungs with normal effort, bibasilar rales posteriorly. abdomen soft, non-tender, non-distended. Ext no edema, moving feet normally. Objective Last Vital Signs Temp 36.1 C L 04/23/24 11:28 Pulse 94 H 04/23/24 11:28 Resp 17 04/23/24 11:28 BP 92/67 L 04/23/24 11:28 Pulse Ox 94 04/23/24 11:28 Laboratory Results - last 24 hr 04/23/24 05:55 WBC 10.79 RBC 3.25 L Hgb 11.4 Hct 33.7 L MCV 104 H MCH 35.1 H MCHC 33.8 RDW 11.8 Plt Count 141 MPV 10.0 Sodium 138 Potassium 3.8 Chloride 102 Carbon Dioxide 27.8 Anion Gap 8.2 BUN 10 Creatinine 0.6 Est GFR (CKD-EPI 2020) 92.97 Glucose 125 H Calcium 7.8 L Magnesium 1.8 Vitamin B12 185 L Time Spent with Patient Time Spent with Patient: 25-34 minutes Time was spent: preparing to see the patient(eg.review tests), obtaining and/or reviewing separately otained hiistory, ordering medications,tests, procedures, referring, communicating with other health assistant child care teacher, indepentently interpreting results, counseling the patient and care coordination
[2024-04-23] MEDS: Enoxaparin 40 MG/0.4 ML SYR SC (16:43)
[2024-04-23] MEDS: Cyanocobalamin 1000 MCG/ML VIAL IM/SC (16:43)
[2024-04-23] MEDS: Normal Saline Flush 10 ML SYR IVP ×2 (16:43→19:45)
[2024-04-23 19:18] LABS: NT-proBNP 942 pg/mL (<300)
[2024-04-23] MEDS: Docusate Sodium 100 MG CAP PO (19:45)
[2024-04-24] VITALS (7 sets, daily range): BP systolic 96–121; BP diastolic 62–79; PULSE 83–110; RESP 14–18; TEMP 36.5–37.7; O2SAT 88–96
[2024-04-24] MEDS: Normal Saline Flush 10 ML SYR IVP ×2 (08:49→20:12)
[2024-04-24] MEDS: Metoprolol 50 MG TAB PO ×2 (08:49→20:09)
[2024-04-24] MEDS: Aspirin E.C. 81 MG TABEC PO (08:50)
[2024-04-24] MEDS: oxyCODONE 5 MG TAB PO (10:38)
[2024-04-24] MEDS: Acetaminophen 325 MG TAB 650 MG PO ×2 (12:37→20:10)
--- NOTE | 2024-04-24 13:01 | W.PM.PROGNOT ---
Date of Service Date of service: 04/24/24 Time of Service: 13:01 Assessment and Plan Assessment and plan (1) Closed fracture of greater trochanter of right femur: Status: Acute Assessment and plan: -as seen on xray and confirmed on CT -non-operative management as per Ortho -continue PRN pain management, encouraged to request prn pain medication before PT. -PT and Care Management have evaluated, she will need rehab placement Qualifiers: Encounter type: initial encounter Fracture alignment: nondisplaced Qualified Code(s): S72.114A - Nondisplaced fracture of greater trochanter of right femur, initial encounter for closed fracture (2) Accidental fall from chair: Status: Acute Assessment and plan: -cause of fracture as noted above -no other injuries noted -now working with PT, daughter is nurse and considering nursing home options for assisted living after rehab (3) Afib: Status: Chronic Assessment and plan: -continue home asa and toprol-XL. Apixaban indicated but defer to PCP. Qualifiers: Atrial fibrillation type: permanent Qualified Code(s): I48.21 - Permanent atrial fibrillation (4) Focal epilepsy: Status: Acute Assessment and plan: - Free phenytoin level was high at 2.5. She has been on the current dose for years and no seizures in decades, she likely needs a lower dose due to aging. This may be affecting balance. Dose decreased to 400mg day split BID (down from 600mg/day total dose). F/u levels as outpatient. (5) Hypomagnesemia: Status: Acute Assessment and plan: low magnesium and potassium corrected. (6) Hypoxia: Status: Resolved Assessment and plan: weaned off oxygen continue cough deep breath and incentive spirometry discussed with DR Nathan Subjective Subjective Patient reports: still having pain, tolerating liquids well, tolerating a regular diet, voiding w/o difficulty and afebrile; denies shortness of breath Exam Narrative Exam Narrative: Elderly female appearing younger than stated age no acute distress head is atraumatic eyes nonicteric noninjected symmetrical facial features oral mucosas moist neck with full range of motion no JVD cardiovascular regular rate and rhythm respirations even nonlabored diminished in the bases abdomen soft nontender extremities are without edema moves all extremities with some guarding to the right lower extremity. Neurologic she is awake alert poor historian psychiatric normal mood and affect Objective Last Vital Signs Temp 37.4 C 08/12/24 11:02 Pulse 110 H 04/24/24 11:02 Resp 14 04/24/24 11:02 BP 111/79 04/24/24 11:02 Pulse Ox 96 04/24/24 11:24 Laboratory Results - last 24 hr 04/23/24 05:55 NT-Pro-B Natriuret Pep 942 H Time Spent with Patient Time Spent with Patient: 35-49 minutes Time was spent: preparing to see the patient(eg.review tests), obtaining and/or reviewing separately otained hiistory, ordering medications,tests, procedures, indepentently interpreting results and care coordination
--- NOTE | 2024-04-24 13:21 | W.NUTRFU ---
Date of service: 04/24/24 Time of Service: 11:45 Nutrition Note NOTE: Pt admitted after a fall from chair and fxr of R greater trochanter, found to have low magnesium, found to be mildly hypoxic. PMH significant for Afib, B12 deficiency, osteoporosis. Eating well at lunch meal when visited with pt. Ordered for reg/normal diet. States she has gained some weight - denies unintentional weight loss. Cooks for one at home - says she prefers to keep it easy and uses skillet meals as a go-to. Takes boost at home for nutrition support - agreeable to vanilla boost at dinner meal during admission. NKFA or special nutrition needs this admission. Will follow po intake, labs. Offered my contact info should she want outpatient services for nutrition support for individual nutrition needs/goals. Pt assessed at lower nutrition risk at this time. Time Spent in Nutritional Counseling and Treatment: 10 minutes
--- NOTE | 2024-04-24 14:28 | PT.INTREAT ---
PT Notes Visit Reasons: Right Greater Trochanter Fracture Inpatient Physical Therapy Treatment Note [facility] Date: 04/24/2024 PRECAUTIONS:WBAT RLE SUBJECTIVE: I am not having any pain now I had the pain medicing a half hour ago. OBJECTIVE: pt presents supine in bed with RLE elevated on pillow and wedge at lateral thigh. Pt noted to have increase head lean to right and forward trunk lean to the right as she progresses through conversation.? PAIN:pt denies at rest after pain medication, VITALS: monitored by Nursing Therapeutic Activities ([id number]): Direct one-on-one instruction in dynamic activities to improve functional performance. ? BED MOBILITY/TRANSFERS? Rolling L/R: mod A with rail to Left Supine-sit: mod A? Sit-supine: mod A for RLE? Sit-stand: mod A and cues to push up ? Stand-sit: min A and cues to reach back ? Bed-Chair:modA stand pivot/ swivel on LLE with RW ? toward left? Provided skilled cues and instruction on performance and technique throughout. Patient education regarding pacing and breathing techniques to maximize activity tolerance? Therapeutic Exercises ([id number]): Direct one-on-one instruction in therapeutic exercises to develop strength, endurance, range of motion and flexibility. ? Exercises ? supine QS, glute sets, Heelslides, ankle pumps , SAQ x 10 reps Provided skilled instruction in proper exercise performance Provided skilled manual cues to facilitate proper muscle recruitment and/or form: [] ASSESSMENT:?Kaye demonstrates impaired right glute and quad strength as well as impaired tolerance to WB on RLE to allow her to unweight her left leg for step turn transfers. She is able to pivot on her left foot while standing to transfer bed to chair with RW. She demonstrates forward flexion at trunk and requires moderate assist with verbal and tactile cues to sustain upright posture. She is motivated to participate and to return to prior level of function. PLAN: continues skilled PT for strengthening,balance , bed mobility, transfer and gait training as able TREATMENT CODE/TIME: 29027,32860/ [id number] DISCHARGE RECOMMENDATION: SNF level of care prior to return to home
--- NOTE | 2024-04-24 14:49 | PDOC.CMPRO ---
Date of service: 04/24/24 Time of Service: 16:17 Care Management Progress Note Progress Note Text Progress Note Text: [place] was sitting up in bed when CM met with her. She was pleasant and engaged in conversation. She stated that she had a lot of pain working with PT, even after medication, which limited her mobility. PT is recommending SNF for short term rehab at this time. CM discussed this with [place], who agreed that she would benefit from rehab, and stated that [facility] is her first choice facility, due to the location being close to home. CM sent the referral, and a bed offer was made late this afternoon. CM informed [place] that she would likely transfer to SNF tomorrow, if a bed offer was received this afternoon. CM called her daughter, Chanel, and informed her of the discharge plan, which she is agreeable to as well. CM will continue to follow. Discharge Potential Discharge Needs: Other (SNF) Anticipated Barriers to Discharge: None Identified Patient/Family Education Needs: Review discharge instructions, discuss Ask Me Three Transportation: Facility Transport Plan: [place] will transition to SNF once medically cleared; she has a bed offer at [facility]. She will transport via facility w/c van, coordinated by CM. She will follow up with her PCP and discharge plan of care. CM will continue to follow. SDOH(Care Management) Screening Will the Patient Participate in the Screening?: Yes Do you worry about having a steady place to live?: yes Problems where you live: pests such as bugs, ants or mice and mold In the past 12 months, have you had to go without electric, gas, oil or water in your home?: yes Have you or anyone in your house had to go without enough food to eat?: no Has lack of transportation kept you from medical appointments or from doing things needed for daily living?: no Has anyone in your support network made you feel unsafe for any reason?: no Health Related Social Needs Health related social needs: inadequate housing(Z59.1), housing instability, housed, with risk of homelessness(Z59.811) and material hardship(utilities)(Z59.87)
--- NOTE | 2024-04-24 15:17 | PTTR_ITS ---
PT Notes Visit Reasons: Right Greater Trochanter Fracture Inpatient Physical Therapy Treatment Note [facility] Date: 04/24/2024 PRECAUTIONS:WBAT RLE SUBJECTIVE: It was good to be out of bed for lunch today I may be going to live closer to my daughter in [place] after all of this. She wants me closer to her. OBJECTIVE: pt presents seated in chair with legs down. Pt noted to have increase head lean to right and forward trunk lean to the right as she progresses through conversation.She reports she is unaware this is occurring. ? PAIN:pt reports soreness and aching at end of session. VITALS: monitored by Nursing Therapeutic Activities ([id number]): Direct one-on-one instruction in dynamic activities to improve functional performance. ? BED MOBILITY/TRANSFERS? Rolling L/R: mod A with rail to Left Supine-sit: mod A? Sit-supine: mod A for RLE? Scooting laterally at EOB min A ? Sit-stand: mod A and cues to push up ? Stand-sit: min A and cues to reach back ? Chair -bed :modA stand pivot/ swivel on LLE with RW ? toward left? cues for upright trunk and to keep hips over feet? Provided skilled cues and instruction on performance and technique through out. Patient education regarding pacing and breathing techniques to maximize activity tolerance? Therapeutic Exercises ([id number]): Direct one-on-one instruction in therapeutic exercises to develop strength, endurance, range of motion and flexibility. ? Exercises ? seated AROM ankle pumps , LAQ , x10 reps BLE hip flexion/marching Left AROM, Right AAROM x 10 reps Provided skilled instruction in proper exercise performance Provided skilled manual cues to facilitate proper muscle recruitment and/or form: marching hip flexor RF activation ASSESSMENT:?Kaye demonstrates increased trunk lean forward and to right during standpivot transfer with RW. She demonstrates need for increase assist and continuous cueing for posture. Pt required increased assist to pivot/ swivel on her Left foot as compared to earlier session on this date. Pt demonstrates reduced ability to WB on her RLE to unweight LLE in this afternoon session. She required AAROM for hip flexion seated with facial grimacing x 1 during 10 reps. She continues to benefit from skilled PT to maximize functional ability, facitiate balance and increase strength. PLAN: continues skilled PT for strengthening,balance , bed mobility, transfer and gait training as able TREATMENT CODE/TIME: 92937,42816/ [id number] 1758 DISCHARGE RECOMMENDATION: SNF level of care prior to return to home
[2024-04-24] MEDS: Enoxaparin 40 MG/0.4 ML SYR SC (16:18)
[2024-04-25 03:20] VITALS: BP 100/66; PULSE 94; RESP 16; TEMP 37; O2SAT 93
--- NOTE | 2024-04-25 07:16 | DSE_ITS ---
Date of service: 04/25/24 Time of Service: 07:16 DS: Diagnosis Discharge Diagnosis (1) Closed fracture of greater trochanter of right femur: Status: Acute (2) Accidental fall from chair: Status: Acute (3) Afib: Status: Chronic (4) Focal epilepsy: Status: Acute (5) Hypomagnesemia: Status: Acute (6) Hypoxia: Status: Resolved Discharge Plan Disposition Patient Disposition: Assisted Facility(SNF) Condition: Stable Discharge Details Reason For Visit: Right Greater Trochanter Fracture Admit Date/Time: 04/21/24 12:21 Admit Provider: Melvin Ricketts Attending Provider: Melvin Ricketts Primary Care Provider: Silke Bergman Hospital Course Hospital Course: The patient presented to the emergency department with mechanical fall found to have a isolated closed fracture of the right greater trochanter. Orthopedics was consulted and injury is nonsurgical. She has been released for weightbearing gait assisted with walker at all times for gait safety and stability. She has been safely we ambulated but not stable for discharge to home. Referrals have been sent and she has been accepted at [facility] and rehab also noted was an elevated Dilantin level so her Dilantin dose was reduced from 200 mg 3 times daily to 200 mg twice daily. She should have a level drawn in 5 days and then again in 10 days with further adjustments per outpatient team as recommended. She also was noted to be vitamin B12 deficient and did receive 1000 mcg subcu. She should resume her oral B12 supplementation. She has been eating and drinking bowels and bladder functioning and has remained medically stable. She is stable for discharge to skilled rehabilitation for further treatment prior to final disposition. Discharge discussed with Dr. Nathan Home Meds and New Rx's Prescriptions: New acetaminophen 325 mg Tablet 650 mg PO QID Qty: 0 0RF polyethylene glycol 3350 17 gram Powder In Packet 17 g PO DAILY PRN PRN (Reason: Constipation) Qty: 0 0RF oxycodone 5 mg Tablet 5 mg PO Q6H PRN PRNQty: 10 0RF Continued aspirin [Adult Aspirin Regimen] 81 mg tablet,delayed release (DR/EC) 81 mg PO DAILY Patient Comments: pt reports taking twice daily mecobalamin (vitamin B12) 1,000 mcg tablet,chewable 1,000 mcg PO DAILY multivitamin [Daily Multi-Vitamin] 1 EACH tablet 1 ea PO DAILY metoprolol tartrate 50 MG tablet 50 mg PO BID ibuprofen [Advil] 200 mg tablet 200 mg PO Q12H PRN Changed phenytoin sodium extended [Dilantin Extended] 100 mg capsule 200 mg PO BID Qty: 0 0RF No Action betamethasone valerate 0.1 % cream 1 applic topical BID Qty: 45 0RF Rx Instructions: Apply pea-sized amount to uretheral irritation twice daily for 2 weeks Discharge Instructions Instructions: Hip fracture in adults - Discharge instructions Additional Instructions: weight bear as tolerated, using a walker at all times for gait safety and stability. Referrals: Silke Bergman [Primary Care Provider] - Activity:: Activity as Tolerated Equipment/Supplies:: No Equipment Needed Diet:: As Tolerated Discharge Orders Discharge Orders: Discharge Order (Routine); Ordered 04/25/24 Ordered By: Brandy Pro DS: Summary Time Spent with Patient providing and/or coordinating discharge services: Greater than 30 minutes Status at Discharge Functional status at discharge: independent ambulation Overall status at discharge: patient is progressing back to baseline Mental Status: mental status grossly normal Speech and Movement: speech and movement normal Mood: congruent mood Affect: normal affect Quality:SDOH Health Related Social Needs: Health related social needs inadequate housing, risk o f homeless, material hardship Exam Narrative Exam Narrative: Elderly female appearing younger than stated age no acute distress head is atraumatic eyes nonicteric noninjected symmetrical facial features oral mucosas moist neck with full range of motion no JVD cardiovascular regular rate and rhythm respirations even nonlabored diminished in the bases abdomen soft nontender extremities are without edema moves all extremities with some guarding to the right lower extremity. Neurologic she is awake alert poor historian psychiatric normal mood and affect Psych Mental Status: mental status grossly normal Speech and Movement: speech and movement normal Mood: congruent mood Affect: normal affect DS: Data Vitals/I&O Vitals and I&O: Vital Signs Temperature 37.0 C 04/25/24 03:20 Temperature Source Tympanic 04/25/24 03:20 Pulse 94 H 04/25/24 03:20 Pulse Rhythm Irregular 04/24/24 23:27 Pulse 129 H 04/21/24 12:52 Respiratory Rate 16 04/25/24 03:20 Respiratory Effort Normal, Non-Labored 04/24/24 23:27 Respiratory Depth Normal 04/24/24 23:27 Respiratory Pattern Normal 04/24/24 23:27 Blood Pressure 100/66 04/25/24 03:20 Blood Pressure Mean 83 04/21/24 12:51 Blood Pressure Position Sitting 04/21/24 09:16 Pulse Oximetry 93 04/25/24 03:20 Oxygen Delivery Method Room Air 04/25/24 03:20 Oxygen Flow Rate 0 04/25/24 03:20 Pain Level 0 04/25/24 03:20 Comment RN Notified 04/22/24 19:36 Intake & Output 04/24/24 04/24/24 04/25/24 11:59 23:59 11:59 Intake Total Output Total 550 / 1999 1450 1999 650 / 650 Balance -540 / -1989 -1450 / -1989 -650 / -650 Intake: IV Output: Urine 1999 1450 1999 650 / 650 Other: Urine Color Dark Jessica Yellow Yellow Urine Appearance Cloudy Clear Clear Urine Odor Normal Comment canister changed PFSH All Active Problems (Updated 04/24/24 @ 13:01 by Brandy Pro NP) Hypomagnesemia (Acute) Accidental fall from chair (Acute) Closed fracture of greater trochanter of right femur (Acute) Hemangioma (Acute) liver Gait abnormality (Acute) Depressed (Chronic) Contusion of left heel (Acute) Anxiety (Chronic) Afib (Chronic) Right carpal tunnel syndrome (Acute) Numbness of right hand (Acute) 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) B12 deficiency (Acute) Osteoporosis (Chronic) Focal epilepsy (Acute 01/03/18) Cerebral cavernoma (Acute 04/27/18) Medical History Pain of right hip joint Carpal tunnel syndrome Seizure Senile osteoporosis Arthralgia of ankle Knee joint laxity Disorder of urethra Essential hypertension Visual disturbance Epilepsy Anxiety disorder Mild recurrent major depression Seizure disorder HLD (hyperlipidemia) Urethral prolapse Low back pain Fatigue Osteoarthritis GERD (gastroesophageal reflux disease) Hypertension Surgical History H/O cataract extraction S/P appendectomy H/O breast biopsy S/P wrist surgery Family History Father Hyperlipidemia Heart disease Sister Alcohol abuse Maternal Grandmother Family hx-stroke Maternal Grandfather Heart disease Social History Smoking/Tobacco Use Status: Former Tobacco Use tobacco type: cigarettes Quit Date: 09/13/69 Smoking risk assessment performed?: Yes Alcohol Intake: current Alcohol Intake frequency: holidays/special occasions only Drug use: Never Substance use type: does not use Housing: apartment Number of Children: 1 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
[2024-04-25 08:27] VITALS: BP 84/62; PULSE 89; RESP 14; TEMP 36.7; O2SAT 96
[2024-04-25 08:31] VITALS: BP 118/64
[2024-04-25] MEDS: Acetaminophen 325 MG TAB 650 MG PO (08:32)
[2024-04-25] MEDS: Aspirin E.C. 81 MG TABEC PO (08:32)
[2024-04-25] MEDS: Metoprolol 50 MG TAB PO (08:32)
[2024-04-25] MEDS: Normal Saline Flush 10 ML SYR IVP (08:37)
--- NOTE | 2024-04-25 08:44 | CMDISCH_ITS ---
Date of service: 04/25/24 Time of Service: 08:44 LACE Index Scoring Tool Questions: Length of Stay (in days): 4 - 6 Was the patient admitted via the E.D.?: Yes E.D. Visits: 1 Answers: Total Score: 8 Risk of Readmission: Low Risk Care Management Discharge Plan Reason for Hospitalization: Closed fracture of greater trochanter of right femur Discharge Plan: [place] is agreeable to [facility] for STR. Pt will follow up with facility and community providers and her discharge plan of care as instructed. Facility w/c van will provide transportation. left message for patients daughter Claudia. Patient/Family Education Needs: Review discharge instructions and plan to follow up with facility and community providers. Discuss ask me three. Services Needed at Discharge: Long-Term Facility ([facility] ) and Transportation (facility w/c ) SDOH Health Related Social Needs: Health related social needs inadequate housing, risk o f homeless, material hardship
== END 2024-04-25 10:38 | disposition skilled nursing facility (03) | DRG 536 ==
LOC: ER 12:30 → MS 13:36
PROVIDERS: Family Medicine; Admitting Provider Family Medicine; Emergency Provider Emergency Medicine; PCP Nurse Practitioner Family; Visit Provider Family Medicine
DX: S72.114A Nondisplaced fracture of greater trochanter of right femur, initial encounter for closed fracture; G40.109 Localization-related (focal) (partial) symptomatic epilepsy and epileptic syndromes with simple partial seizures, not intractable, without status epilepticus; F33.0 Major depressive disorder, recurrent, mild; I48.21 Permanent atrial fibrillation; J98.11 Atelectasis; R09.02 Hypoxemia; W07.XXXA Fall from chair, initial encounter; R26.9 Unspecified abnormalities of gait and mobility; F41.9 Anxiety disorder, unspecified; Z79.82 Long term (current) use of aspirin; I10 Essential (primary) hypertension; Z79.899 Other long term (current) drug therapy; D18.09 Hemangioma of other sites; E53.8 Deficiency of other specified B group vitamins; M81.0 Age-related osteoporosis without current pathological fracture; E78.5 Hyperlipidemia, unspecified; M54.50 Low back pain, unspecified; K21.9 Gastro-esophageal reflux disease without esophagitis; G56.01 Carpal tunnel syndrome, right upper limb; E83.42 Hypomagnesemia
CPT/HCPCS: 00123; 36415; 73552; 80048; 80053; 82550; 85027; 93005; 96360; 97110; 97162; 97530; 99285; J1650; 71045; 72192; 73502; 82607; 83735; 83880; 84484; 85025; 85610; 93010; 94760; 99223; 99231; 99232; 99239; J3420; J3475

== ENCOUNTER 2024-05-02 14:50 | Outpatient (REF) | payer SELFPAY ==
[2024-05-02 21:24] LABS: PHENYTOIN (DILANTIN) 10.2 ug/mL (10.0-20.0)
== END 2024-05-02 14:51 | disposition home or self-care (01) ==
LOC: LBN 14:50
PROVIDERS: PCP Nurse Practitioner Family; Visit Provider Family Medicine
DX: Z51.81 Encounter for therapeutic drug level monitoring (principal)
CPT/HCPCS: 80185

== ENCOUNTER 2024-05-04 17:41 | Outpatient (REF) | payer SELFPAY ==
[2024-05-04 18:21] LABS: PHENYTOIN (DILANTIN) 6.5 ug/mL (10.0-20.0)
[2024-05-04 18:22] LABS: Anion Gap 10.4 mmol/L (3-11); BUN 13 mg/dL (7-18); CO2 27.6 mmol/L (21.0-32.0); CREATININE 0.7 mg/dL (0.55-1.02); Calcium 8.2 mg/dL (8.5-10.1); Chloride 96 mmol/L (98-107); Estimated GFR 89.58 (mL/min/1.73m2); Glucose 92 mg/dL (74-106); Magnesium 1.9 mg/dL (1.8-2.4); Potassium 4.4 mmol/L (3.5-5.1); Sodium 134 mmol/L (136-145)
== END 2024-05-04 17:42 | disposition home or self-care (01) ==
LOC: LBN 17:41
PROVIDERS: PCP Nurse Practitioner Family; Visit Provider Family Medicine
DX: I48.0 Paroxysmal atrial fibrillation (principal)
CPT/HCPCS: 80048; 80185; 83735

== ENCOUNTER 2024-05-09 19:47 | Outpatient (REF) | payer SELFPAY ==
[2024-05-09 19:47] LABS: Abs Immature Grans 0.11 10^3/uL (0.0-0.06); Absolute Basophil Count 0.04 10^3/uL (0.0-0.2); Absolute Lymphocyte Count 1.33 10^3/uL (1.2-3.4); Absolute Neutrophil Count 10.11 10^3/uL (1.2-6.7); Basophils % 0.3 %; Eosinophils % 0.2 %; HCT 34.7 % (36.0-46.0); HGB 11.6 g/dL (11.2-15.7); Immature Grans % 0.9 %; Lymphocytes % 10.8 %; MCH 34.7 pg (27.0-33.0); MCHC 33.4 % (32.0-36.0); MCV 104 fL (80-95); MPV 9.3 fL (8.0-11.0); Monocytes % 5.7 %; Neutrophils % 82.1 %; Platelet Count 263 10^3/uL (130-400); RBC 3.34 10^6/uL (3.93-5.22); RDW 12.6 % (11.7-14.6); RDW-SD 47.4 fL; WBC 12.32 10^3/uL (4.4-10.8)
[2024-05-09 19:55] LABS: Absolute Eosinophil Count 0.02 10^3/uL (0.0-0.7)
[2024-05-09 20:24] LABS: Vitamin B12 620 pg/mL (193-986)
[2024-05-09 20:32] LABS: PHENYTOIN (DILANTIN) 6.1 ug/mL (10.0-20.0)
== END 2024-05-09 19:48 | disposition home or self-care (01) ==
LOC: LBN 19:47
PROVIDERS: PCP Nurse Practitioner Family; Visit Provider Family Medicine
DX: R68.89 Other general symptoms and signs (principal)
CPT/HCPCS: 80185; 82607; 85025

== ENCOUNTER 2024-05-18 20:39 | Outpatient (REF) | payer SELFPAY ==
[2024-05-18 21:32] LABS: Bilirubin Negative (Negative); Blood Negative (Negative); Clarity Clear (Clear); Glucose Negative (Negative); Ketones Negative (Negative); Leukocyte Esterase Small (Negative); Nitrite Negative (Negative); Specific Gravity 1.015 (1.005-1.025); Urobilinogen 0.2 mg/dL (Up to 0.2); pH 6.5 (5-8)
[2024-05-18 21:54] LABS: Bacteria Few HPF (Negative); Crystals Negative HPF (Negative); Epithelial Cells Few HPF (Negative); Mucus Negative (Negative); RBC Negative HPF (0-2)
[2024-05-18 21:55] LABS: C & S Indicated? C&S Done As Ordered; Casts Negative LPF (Negative)
== END 2024-05-18 20:40 | disposition home or self-care (01) ==
LOC: LBN 20:39
PROVIDERS: PCP Nurse Practitioner Family; Visit Provider Family Medicine
DX: N39.0 Urinary tract infection, site not specified (principal)
CPT/HCPCS: 81003; 81015; 87086

== ENCOUNTER 2024-05-24 19:05 | Outpatient (REF) | payer SELFPAY ==
[2024-05-24 20:04] LABS: HCT 36.6 % (36.0-46.0); HGB 12.2 g/dL (11.2-15.7); MCH 34.7 pg (27.0-33.0); MCHC 33.3 % (32.0-36.0); MCV 104 fL (80-95); MPV 9.9 fL (8.0-11.0); Platelet Count 180 10^3/uL (130-400); RBC 3.52 10^6/uL (3.93-5.22); RDW 13.5 % (11.7-14.6); RDW-SD 51.2 fL; WBC 7.39 10^3/uL (4.4-10.8)
[2024-05-24 20:51] LABS: Vitamin B12 580 pg/mL (193-986)
== END 2024-05-24 19:06 | disposition home or self-care (01) ==
LOC: LBN 19:05
PROVIDERS: PCP Nurse Practitioner Family; Visit Provider Family Medicine
DX: E53.8 Deficiency of other specified B group vitamins (principal); D64.9 Anemia, unspecified; Z51.81 Encounter for therapeutic drug level monitoring
CPT/HCPCS: 85027; 80185; 82607

== ENCOUNTER 2024-05-25 20:09 | Outpatient (REF) | payer SELFPAY ==
[2024-05-25 18:32] LABS: PHENYTOIN (DILANTIN) 17.9 ug/mL (10.0-20.0)
== END 2024-05-25 20:10 | disposition home or self-care (01) ==
LOC: LBN 20:09
PROVIDERS: PCP Nurse Practitioner Family; Visit Provider Family Medicine
DX: G40.319 Generalized idiopathic epilepsy and epileptic syndromes, intractable, without status epilepticus (principal); R82.89 Other abnormal findings on cytological and histological examination of urine
CPT/HCPCS: 80185

== ENCOUNTER 2024-09-29 21:42 | Outpatient (REF) | payer MEDICARE, SELFPAY ==
[2024-09-29 15:39] LABS: Abs Immature Grans 0.02 10^3/uL (0.0-0.06); Absolute Basophil Count 0.05 10^3/uL (0.0-0.2); Absolute Eosinophil Count 0.13 10^3/uL (0.0-0.7); Absolute Lymphocyte Count 1.39 10^3/uL (1.2-3.4); Absolute Monocyte Count 0.59 10^3/uL (0.1-0.8); Absolute Neutrophil Count 3.71 10^3/uL (1.2-6.7); Basophils % 0.8 %; Eosinophils % 2.2 %; HCT 31.1 % (36.0-46.0); HGB 9.8 g/dL (11.2-15.7); Immature Grans % 0.3 %; Lymphocytes % 23.6 %; MCH 31.9 pg (27.0-33.0); MCHC 31.5 % (32.0-36.0); MCV 101 fL (80-95); MPV 9.7 fL (8.0-11.0); Neutrophils % 63.1 %; Platelet Count 202 10^3/uL (130-400); RBC 3.07 10^6/uL (3.93-5.22); WBC 5.89 10^3/uL (4.4-10.8)
[2024-09-29 16:17] LABS: ALT 6 U/L (14-59); AST 18 U/L (15-37); Albumin 3.6 g/dL (3.4-5.0); Alkaline Phosphatase 158 U/L (46-116); Anion Gap 6.4 mmol/L (3-11); BUN 15 mg/dL (7-18); Bilirubin, Total 0.37 mg/dL (0.2-1.0); CO2 31.6 mmol/L (21.0-32.0); CREATININE 0.7 mg/dL (0.55-1.02); Calcium 8.9 mg/dL (8.5-10.1); Calculated LDL 60 mg/dL (<100); Chloride 104 mmol/L (98-107); Cholesterol 134 mg/dL (<200); Estimated GFR 89.02 (mL/min/1.73m2); Glucose 98 mg/dL (74-106); HDL Cholesterol 63 mg/dL (40-60); Potassium 3.9 mmol/L (3.5-5.1); Sodium 142 mmol/L (136-145); TSH (W/Ref FT4) 2.53 uIU/mL (0.36-3.74); Total Protein 7.9 g/dL (6.4-8.2); Triglyceride 56 mg/dL (<150); Vitamin B12 267 pg/mL (193-986)
[2024-09-29 16:37] LABS: Hemoglobin A1C 5.3 % (<5.7)
[2024-09-29 16:49] LABS: NT-proBNP 384 pg/mL (<300)
[2024-10-02 20:22] LABS: Phenytoin, Total 28.9 mcg/mL
[2024-10-03 08:44] LABS: Phenytoin, Free 2.5 mcg/mL (1.0 - 2.0)
== END 2024-09-29 21:43 | disposition home or self-care (01) ==
LOC: NCHCN 21:42
PROVIDERS: PCP Nurse Practitioner Family; Visit Provider Nurse Practitioner Family
DX: I10 Essential (primary) hypertension (principal); I48.91 Unspecified atrial fibrillation; E78.5 Hyperlipidemia, unspecified; E53.9 Vitamin B deficiency, unspecified; G40.909 Epilepsy, unspecified, not intractable, without status epilepticus; R20.8 Other disturbances of skin sensation; R60.0 Localized edema
CPT/HCPCS: 80053; 80061; 80186; 80185; 82607; 83036; 83880; 84443; 85025

== ENCOUNTER 2024-10-23 17:16 | Outpatient (REF) | payer MEDICARE, SELFPAY ==
[2024-10-26 07:54] LABS: Phenytoin, Free 0.9 mcg/mL (1.0 - 2.0); Phenytoin, Total 8.2 mcg/mL
== END 2024-10-23 17:17 | disposition home or self-care (01) ==
LOC: NCHCN 17:16
PROVIDERS: PCP Nurse Practitioner Family; Visit Provider Nurse Practitioner Family
DX: R89.2 Abnormal level of other drugs, medicaments and biological substances in specimens from other organs, systems and tissues (principal)
CPT/HCPCS: 80186; 80185

== ENCOUNTER 2024-11-14 12:28 | Outpatient (REF) | payer MEDICARE, SELFPAY ==
[2024-11-16 20:05] LABS: Phenytoin, Total 28.4 mcg/mL
[2024-11-17 08:00] LABS: Phenytoin, Free 2.7 mcg/mL (1.0 - 2.0)
== END 2024-11-14 12:29 | disposition home or self-care (01) ==
LOC: NCHCN 12:28
PROVIDERS: PCP Nurse Practitioner Family; Visit Provider Nurse Practitioner Family
DX: R89.2 Abnormal level of other drugs, medicaments and biological substances in specimens from other organs, systems and tissues (principal)
CPT/HCPCS: 80186; 80185

== ENCOUNTER 2024-12-28 11:48 | Outpatient (REF) | payer MEDICARE, SELFPAY ==
[2024-12-28 20:10] LABS: ALT 13 U/L (14-59); AST 18 U/L (15-37); Albumin 3.5 g/dL (3.4-5.0); Alkaline Phosphatase 164 U/L (46-116); Anion Gap 8.2 mmol/L (3-11); BUN 20 mg/dL (7-18); Bilirubin, Total 0.3 mg/dL (0.2-1.0); CO2 28.8 mmol/L (21.0-32.0); CREATININE 0.7 mg/dL (0.55-1.02); Calcium 8.7 mg/dL (8.5-10.1); Chloride 105 mmol/L (98-107); Estimated GFR 89.02 (mL/min/1.73m2); Glucose 99 mg/dL (74-106); Potassium 4.8 mmol/L (3.5-5.1); Sodium 142 mmol/L (136-145); Total Protein 8.1 g/dL (6.4-8.2); Vitamin B12 522 pg/mL (193-986)
[2025-01-03 01:21] LABS: Phenytoin, Free 0.8 mcg/mL (1.0 - 2.0); Phenytoin, Total 12.4 mcg/mL
== END 2024-12-28 11:49 | disposition home or self-care (01) ==
LOC: NCHCN 11:48
PROVIDERS: PCP Nurse Practitioner Family; Visit Provider Nurse Practitioner Family
DX: G40.909 Epilepsy, unspecified, not intractable, without status epilepticus (principal); I10 Essential (primary) hypertension; E53.9 Vitamin B deficiency, unspecified
CPT/HCPCS: 80053; 80186; 80185; 82607

== ENCOUNTER 2025-02-01 10:45 | Emergency (ER) | payer MEDICARE, SELFPAY ==
[2025-02-01] VITALS (20 sets, daily range): BP systolic 102–139; BP diastolic 49–83; PULSE 72–96; RESP 14–33; TEMP 36.7; O2SAT 94–99
--- NOTE | 2025-02-01 10:45 | RT.EKG_ITS ---
APPROVED REPORT Exam: Resting ECG Reason for Exam: Dizziness Patient Location: E HR:76 bpm ECG Measurements Heart Rate 76 AXIS ND [id number] P [id number] QRSd 91 QRS 62 QT 394 T 32 QTc 443 Conclusion Atrial fibrillation...? atrial activity Atrial fibrillation. When compared to prior 04/21/24 heart rate is decreased. WD
--- NOTE | 2025-02-01 11:08 | ED.GENADUL_ITS ---
Discharge Plan Disposition Patient Disposition: Home Condition: Stable Discharge Details Clinical Impression: Afib, Mass of right lung, Calcification of brain, Adrenal mass Primary Care Provider: Silke Bergman ED Provider: Dora Nath Home Meds and New Rx's Prescriptions: No Action aspirin [Adult Aspirin Regimen] 81 mg tablet,delayed release (DR/EC) 81 mg PO DAILY Patient Comments: pt reports taking twice daily mecobalamin (vitamin B12) 1,000 mcg tablet,chewable 1,000 mcg PO DAILY multivitamin [Daily Multi-Vitamin] 1 EACH tablet 1 ea PO DAILY metoprolol tartrate 50 MG tablet 50 mg PO BID ibuprofen [Advil] 200 mg tablet 200 mg PO Q12H PRN phenytoin sodium extended 100 mg capsule 100 mg PO TID Patient Comments: per PCP 10/04/24 acetaminophen 325 mg Tablet 650 mg PO QID Qty: 0 0RF polyethylene glycol 3350 17 gram Powder In Packet 17 g PO DAILY PRN PRN (Reason: Constipation) Qty: 0 0RF Discharge Instructions Instructions: Atrial Fibrillation (DC), Syncope (Fainting) (DC), Lung Cancer (DC), Brain metastases Additional Instructions: Your evaluation today showed a mass in your right lower lung. There was calcification in your brain and likely adrenal masses. There was also spots on your thyroid. I have called your doctor's office and you will be under the care of Dr. Smith now. Please see them soon as possible. Return immediately to the ER with any new or worsening symptoms. Referrals: Silke Bergman [Primary Care Provider] - Letty Smith MD [[facility] STAFF PHYSICIAN] - (This is your new provider. Call for an appointment this week.) Discharge Data Discharge Physician: Dora Nath [facility] General Date/Time Provider Initiated Documentation: 02/01/25 10:56 . [facility] Narrative: 79-year-old female with history of atrial fibrillation presents for evaluation after syncopal episode. Patient states that she was shopping at [employer] this morning. Her cart was very heavy and when she was pushing the cart to the checkout she could not do it anymore. She had a syncopal episode. She did end up on the ground. She does not recall passing out. No history of syncope in the past. Denies any chest pain or shortness of breath. She did eat this morning. Denies any recent illness. Denies any neck or back pain. No numbness or tingling in her extremities. No weakness in her extremities. She takes baby aspirin. No other blood thinners. Related Data Home Medications ?Medication ?Instructions ?Recorded ?Confirmed metoprolol tartrate 50 mg tablet 50 mg PO BID 11/29/17 02/01/25 multivitamin (Daily Multi-Vitamin 1 ea PO DAILY 11/29/17 02/01/25 tablet) mecobalamin (vitamin B12) 1,000 1,000 mcg PO DAILY 07/30/20 02/01/25 mcg chewable tablet ibuprofen 200 mg tablet (Advil) 200 mg PO Q12H PRN 03/05/22 02/01/25 aspirin 81 mg tablet,delayed 81 mg PO DAILY 04/13/23 02/01/25 release (Adult Aspirin Regimen) acetaminophen 325 mg tablet 650 mg (2 x 325 mg) PO QID #0 tabs 04/25/24 02/01/25 polyethylene glycol 3350 17 gram 17 g PO DAILY PRN PRN Constipation 04/25/24 02/01/25 oral powder packet #0 ea phenytoin sodium extended 100 mg 100 mg PO TID 10/05/24 02/01/25 capsule Previous Rx's ?Medication ?Instructions ?Recorded acetaminophen 325 mg tablet 650 mg (2 x 325 mg) PO QID #0 tabs 04/25/24 polyethylene glycol 3350 17 gram 17 g PO DAILY PRN PRN Constipation 04/25/24 oral powder packet #0 ea Allergies Allergy/AdvReac Type Severity Reaction Status Date / Time Penicillins Allergy Intermediate Hives Verified 02/01/25 10:54 cat dander Allergy Mild Hives Verified 02/01/25 10:54 General Stated Complaint: [id number] RADHA: 3 Review of Systems Narrative: Remainder of review of systems otherwise negative except for as noted in the HPI x 10. Exam Narrative Exam Narrative: General: non-toxic, no respiratory distress, comfortable HEENT: normocephalic, atraumatic, lids and lashes normal, PERRL, EOMI, anicteric sclera, no conjunctival injection, moist oral mucosa Neck: No vertebral tenderness Card: regular rate and rhythm, S1S2, no murmurs, rubs, or gallops Lungs: good air entry, clear to auscultation bilaterally. no wheezes, rales, rhonchi, or retractions Abd: soft, non-tender, non-distended, normal bowel sounds, no rebound or guarding, no peritoneal signs Musculoskeletal: No vertebral tenderness, pelvis stable, full range of motion of arms and legs, no tenderness to palpation. no clubbing, cyanosis, or edema Neurologic: GSC 15, CN 2-12 intact bilaterally, speech normal, strength normal, sensation intact distally in all four extremities, gait normal, 2+ biceps tendon reflexes, normal finger to nose, normal rapid alternating movements, no pronator drift Psych: alert and oriented Skin: no petechiae, no lesions, warm and dry Course I was able to contact patient's doctor's office and arrange for patient to now be under the care of Dr. Smith. At patient's request I did discuss results of her workup today with her daughter Chanel Wilburn at [phone]. Vital Signs Vital signs: Vital Signs Temperature 36.7 C 02/01/25 10:48 Pulse 73 02/01/25 10:48 Respiratory Rate 16 02/01/25 10:48 Blood Pressure 102/63 02/01/25 10:48 Pulse Oximetry 97 02/01/25 10:48 Temperature 36.7 C 02/01/25 10:48 Temperature Source Oral 02/01/25 10:48 Pulse 73 02/01/25 10:48 Respiratory Rate 20 02/01/25 11:02 Respiratory Effort Normal 02/01/25 11:02 Respiratory Depth Normal 02/01/25 11:02 Respiratory Pattern Normal 02/01/25 11:02 Blood Pressure 102/63 02/01/25 10:48 Blood Pressure Position Sitting 02/01/25 10:48 Pulse Oximetry 97 02/01/25 10:48 Oxygen Delivery Method Room Air 02/01/25 10:48 Oxygen Flow Rate 0 02/01/25 10:48 Pain Level 0 02/01/25 10:48 Medical Decision Making 79-year-old female with history of atrial fibrillation presents for evaluation after syncopal episode. At time my evaluation patient is neurologically intact. NIH stroke score is 0. She does not have any bony tenderness. EKG shows atrial fibrillation at a controlled rate. She does not have orthostatic hypotension. Laboratory studies show significantly elevated D-dimer. [address] head, cervical spine, chest with contrast were ordered. CT head was concerning for calcifications therefore CT head with contrast as well as abdomen/pelvis with contrast were added. Imaging showed patient to have a right lower lobe lung mass, brain calcifications which are likely metastatic disease, adrenal masses, enlarged thyroid. I did discuss these findings with patient. She states that she does not wish to have any treatment and she does not normally test for cancer. She would like to be discharged home. I think that that is reasonable at this time however I wanted to arrange follow-up for her. At her request I did speak with her daughter and discussed the findings. I have also contacted the primary care office and set her up to see a new primary care doctor. Patient understands that she should return with any new or worsening symptoms. 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) Cerebral cavernoma (Acute 04/27/18) Medical History Pain of right hip joint Carpal tunnel syndrome Seizure Senile osteoporosis Arthralgia of ankle Knee joint laxity Disorder of urethra Essential hypertension Visual disturbance Epilepsy Anxiety disorder Mild recurrent major depression Seizure disorder HLD (hyperlipidemia) Urethral prolapse Low back pain Fatigue Osteoarthritis GERD (gastroesophageal reflux disease) Hypertension Surgical History H/O cataract extraction S/P appendectomy H/O breast biopsy S/P wrist surgery Family History Father Hyperlipidemia Heart disease Sister Alcohol abuse Maternal Grandmother Family hx-stroke Maternal Grandfather Heart disease Social History Smoking/Tobacco Use Status: Former Tobacco Use tobacco type: cigarettes Quit Date: 09/13/69 Smoking risk assessment performed?: Yes Alcohol Intake: current Alcohol Intake frequency: holidays/special occasions only Drug use: Never Substance use type: does not use Housing: apartment Number of Children: 1 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
[2025-02-01 11:29] LABS: Abs Immature Grans 0.03 10^3/uL (0.0-0.06); Absolute Basophil Count 0.04 10^3/uL (0.0-0.2); Absolute Eosinophil Count 0.13 10^3/uL (0.0-0.7); Absolute Lymphocyte Count 0.81 10^3/uL (1.2-3.4); Absolute Monocyte Count 0.36 10^3/uL (0.1-0.8); Absolute Neutrophil Count 5.16 10^3/uL (1.2-6.7); Basophils % 0.6 %; HCT 27.9 % (36.0-46.0); HGB 8.3 g/dL (11.2-15.7); Immature Grans % 0.5 %; Lymphocytes % 12.4 %; MCH 24.2 pg (27.0-33.0); MCHC 29.7 % (32.0-36.0); MCV 81 fL (80-95); MPV 9.7 fL (8.0-11.0); Monocytes % 5.5 %; Platelet Count 179 10^3/uL (130-400); RBC 3.43 10^6/uL (3.93-5.22); RDW 17.6 % (11.7-14.6); RDW-SD 51.3 fL; WBC 6.53 10^3/uL (4.4-10.8)
[2025-02-01 11:59] LABS: ALT 11 U/L (14-59); AST 21 U/L (15-37); Albumin 3.1 g/dL (3.4-5.0); Alkaline Phosphatase 132 U/L (46-116); Anion Gap 6.3 mmol/L (3-11); BUN 18 mg/dL (7-18); Bilirubin, Total 0.5 mg/dL (0.2-1.0); CO2 27.7 mmol/L (21.0-32.0); CREATININE 0.7 mg/dL (0.55-1.02); Calcium 8.2 mg/dL (8.5-10.1); Chloride 106 mmol/L (98-107); Estimated GFR 89.02 (mL/min/1.73m2); Glucose 110 mg/dL (74-106); Magnesium 1.6 mg/dL (1.8-2.4); Potassium 4.1 mmol/L (3.5-5.1); Sodium 140 mmol/L (136-145); Total Protein 7.2 g/dL (6.4-8.2); Troponin I 6 ng/L (<or=51)
[2025-02-01 12:15] LABS: D-Dimer > 7500 ng/mlFEU (<500)
[2025-02-01 12:34] LABS: Troponin I 9 ng/L (<or=51)
[2025-02-01] MEDS: Normal Saline - Diluent 50 ML VIAL IJ (12:43)
--- NOTE | 2025-02-01 13:16 | DI.CT_ITS ---
Exam(s) CT HEAD W CT HEAD CERVICAL SPINE WO EXAM: CT HEAD CERVICAL SPINE WO CLINICAL HISTORY: syncope. TECHNIQUE: Imaging Protocol: Axial computed tomography images with coronal and sagittal reformatted images were created and reviewed Imaging was performed before and after IV contrast enhanced chest abdomen pelvis CT without any addit ional contrast administration. COMPARISON: CT CT HEAD W from 02/01/2025 FINDINGS: Head CT Ventricles and Extra axial spaces: Normal in size and morphology for the patient's age. Hemorrhage: None. Cerebral parenchyma: There are multiple bilateral high attenuation foci scattered through both cerebr al hemispheres. There are also scattered calcifications. Additional lesions are noted in the brains tem. There is very little postcontrast enhancement. The largest lesion is in the left frontal lobe which measures 13 millimeters and shows some adjacent white matter edema. The findings are in suspic ious for brain metastases. No evidence of acute infarct. Midline shift: None. Cerebellum: Normal. Calvarium: Normal. Visualized Paranasal sinuses/Mastoids: Clear. Soft tissues: Unremarkable. Cervical Spine CT BONES: Vertebral body heights are maintained. Degenerative straightening of the normal cervical lord osis. There is no evidence of acute fracture. The bones appear osteopenic. No gross lytic or blast ic lesions. Advanced degenerative disc changes and facet degenerative changes are seen . SOFT TISSUES: No paraspinal hematoma. The airway appears intact. No pneumothorax is seen at the lung apices. There is marked enlargement of the right lobe thyroid. Thyroid ultrasound should be considered furth er evaluation. IMPRESSION: Head CT: multiple hyperdense lesions suspicious for metastases. Enlargement of the right lobe of the thyroid. A thyroid ultrasound is recommended for further evalua tion. C-spine CT: Degenerative changes, no acute abnormality. RADIATION DOSE DELIVERED: 1,197.28mGy.cm Total DLP DATA REPOSITORY: All CT scans at this facility are submitted to the National Radiology Data Registry (NRDR) Dose Index Registry (DIR) with the [employer] (ACR). RADIATION OPTIMIZATION: All CT scans at this facility use at least one of these dose optimization te chniques: automated exposure control; mA and/or kV adjustment per patient size (includes targeted exa ms where dose is matched to clinical indication); or iterative reconstruction.
--- NOTE | 2025-02-01 13:16 | DI.CT_ITS ---
Exam(s) CT CHEST PE ABD PELVIS W CT THORACIC LUMBAR SPINE REC EXAM: CT CHEST PE ABD PELVIS W CLINICAL HISTORY: syncope. TECHNIQUE: Imaging Protocol: Axial computed tomography images with coronal and sagittal reformatted images were created and reviewed. Computer aided detection (CAD) was utilized. CONTRAST MATERIAL: Intravenous: Omnipaque 350 Contrast volume:100 ml Oral: / no COMPARISON: CR XR PORTABLE CHEST AP from 04/21/[address] HEAD W from 02/01/[address] HEAD CERVICAL SPINE WO from 02/01/2025 FINDINGS: CHEST: Pulmonary parenchyma: No consolidation. Mass at the inferior right hilum a insert recalling the righ t lower lobe vessels. Masslike densities seen posteriorly in the right lower lobe. Tracheobronchial tree: No bronchiectasis. No mucous plugging.No bronchial wall thickening. Pleura: No effusion or pneumothorax. Mediastinum: There is streak artifact at the upper mediastinum secondary to dense contrast material. There is marked enlargement of the right lobe of the thyroid. Pulmonary arteries: There is attenuation of the lower lobe pulmonary arteries by surrounding soft tis sneha material. Posterior basal and medial basal segments show very little blood flow. No visible emb dorina. Cardiovascular: There is biatrial enlargement. Coronary artery calcifications are present. The asce nding aorta measures 3.5 cm. Descending aorta measures 3.8 cm. No pericardial effusion. Bones: Unremarkable for age. No lytic or blastic lesions.No compression fractures. Soft tissues: Unremarkable. ABDOMEN and PELVIS: The exam is limited by streak artifact secondary to patient arm positioning Liver: Normal density. No suspicious mass. Gallbladder and biliary tract: No evidence of stones or wall thickening. No biliary dilatation. Pancreas: Normal density, no abnormal calcifications or inflammatory process. Spleen: Normal. Kidneys: Normal size, contour and axis. No radiodense stones. No obstructive uropathy. No suspicious masses seen. Adrenal glands: There are multiple bilateral adrenal masses, largest measuring 2.3 cm on the left adr enal. Adrenal calcifications are also present. They measure higher density, 50-70 Hounsfield units on arterial phase images without significant difference on venous phase images. These likely represent metastatic lesions. Aorta: Abdominal portion non-dilated. Atherosclerotic changes. Lymph nodes: Within normal limits. Soft tissues: Unremarkable. Bladder: Unremarkable. Bowel: No obstruction or bowel wall thickening. Increased quantity of stool. Bowel suboptimally ev aluated due to lack of oral contrast and lack of intra-abdominal fat. Peritoneal cavity: No ascites. No focal collection. No mesenteric inflammatory response. No free ai r. Bones: Mild compression of the inferior endplate L1. Mild compression fracture of the superior endpl ate of L3. Severe degenerative changes of both hips. Reproductive organs: Unremarkable for age. IMPRESSION: Mass encircling right lower lobe pulmonary vessels. Adjacent nodular masslike densities, suspicious f or malignancy. Mass in right lobe of the thyroid. Ultrasound recommended for further evaluation. Bilateral adrenal masses, suspicious for metastatic lesions. Findings called to Dr. Nath of the emergency department. RADIATION DOSE DELIVERED: 417.47mGy.cm Total DLP DATA REPOSITORY: All CT scans at this facility are submitted to the National Radiology Data Registry (NRDR) Dose Index Registry (DIR) with the [employer] (ACR). RADIATION OPTIMIZATION: All CT scans at this facility use at least one of these dose optimization te chniques: automated exposure control; mA and/or kV adjustment per patient size (includes targeted exa ms where dose is matched to clinical indication); or iterative reconstruction.
[2025-02-01] MEDS: Omnipaque 350 MG/ML 100 ML BTL IJ (13:17)
[2025-02-01 15:22] LABS: TSH (W/Ref FT4) 2.95 uIU/mL (0.36-3.74)
--- NOTE | 2025-02-03 10:27 | NUR.NOTE ---
Accessed chart to reconcile orders for EKG with EKG?s in [facility]. Duplicate order cancelled. Nursing Note:
== END 2025-02-01 15:18 | disposition home or self-care (01) ==
PROVIDERS: Emergency Provider Emergency Medicine Emergency Medical Services; PCP Nurse Practitioner Family
DX: R55 Syncope and collapse (principal); R91.8 Other nonspecific abnormal finding of lung field; G93.89 Other specified disorders of brain; E27.9 Disorder of adrenal gland, unspecified; I48.91 Unspecified atrial fibrillation; I10 Essential (primary) hypertension; E78.5 Hyperlipidemia, unspecified; Z79.82 Long term (current) use of aspirin; Z87.891 Personal history of nicotine dependence
CPT/HCPCS: 71275; 74177; 80053; 93005; 99285; 70450; 70460; 72125; 80185; 83735; 84443; 84484; 85025; 85379; 93010; 99284; J3490

== ENCOUNTER 2025-02-02 16:33 | Emergency (ER) | payer MEDICARE, SELFPAY ==
[2025-02-02 16:38] VITALS: BP 107/72; PULSE 78; RESP 16; TEMP 36.5; O2SAT 94
--- NOTE | 2025-02-02 17:15 | DI.CT_ITS ---
Exam(s) CT CHEST PE ABD PELVIS W CT THORACIC LUMBAR SPINE REC EXAM: CT CHEST PE ABD PELVIS W CLINICAL HISTORY: syncope. TECHNIQUE: Imaging Protocol: Axial computed tomography images with coronal and sagittal reformatted images were created and reviewed. Computer aided detection (CAD) was utilized. CONTRAST MATERIAL: Intravenous: Omnipaque 350 Contrast volume:100 ml Oral: / no COMPARISON: CR XR PORTABLE CHEST AP from 04/21/[address] HEAD W from 02/01/[address] HEAD CERVICAL SPINE WO from 02/01/2025 FINDINGS: CHEST: Pulmonary parenchyma: No consolidation. Mass at the inferior right hilum a insert recalling the righ t lower lobe vessels. Masslike densities seen posteriorly in the right lower lobe. Tracheobronchial tree: No bronchiectasis. No mucous plugging.No bronchial wall thickening. Pleura: No effusion or pneumothorax. Mediastinum: There is streak artifact at the upper mediastinum secondary to dense contrast material. There is marked enlargement of the right lobe of the thyroid. Pulmonary arteries: There is attenuation of the lower lobe pulmonary arteries by surrounding soft tis sneha material. Posterior basal and medial basal segments show very little blood flow. No visible emb dorina. Cardiovascular: There is biatrial enlargement. Coronary artery calcifications are present. The asce nding aorta measures 3.5 cm. Descending aorta measures 3.8 cm. No pericardial effusion. Bones: Unremarkable for age. No lytic or blastic lesions.No compression fractures. Soft tissues: Unremarkable. ABDOMEN and PELVIS: The exam is limited by streak artifact secondary to patient arm positioning Liver: Normal density. No suspicious mass. Gallbladder and biliary tract: No evidence of stones or wall thickening. No biliary dilatation. Pancreas: Normal density, no abnormal calcifications or inflammatory process. Spleen: Normal. Kidneys: Normal size, contour and axis. No radiodense stones. No obstructive uropathy. No suspicious masses seen. Adrenal glands: There are multiple bilateral adrenal masses, largest measuring 2.3 cm on the left adr enal. Adrenal calcifications are also present. They measure higher density, 50-70 Hounsfield units on arterial phase images without significant difference on venous phase images. These likely represent metastatic lesions. Aorta: Abdominal portion non-dilated. Atherosclerotic changes. Lymph nodes: Within normal limits. Soft tissues: Unremarkable. Bladder: Unremarkable. Bowel: No obstruction or bowel wall thickening. Increased quantity of stool. Bowel suboptimally ev aluated due to lack of oral contrast and lack of intra-abdominal fat. Peritoneal cavity: No ascites. No focal collection. No mesenteric inflammatory response. No free ai r. Bones: Mild compression of the inferior endplate L1. Mild compression fracture of the superior endpl ate of L3. Severe degenerative changes of both hips. Reproductive organs: Unremarkable for age. IMPRESSION: Mass encircling right lower lobe pulmonary vessels. Adjacent nodular masslike densities, suspicious f or malignancy. Mass in right lobe of the thyroid. Ultrasound recommended for further evaluation. Bilateral adrenal masses, suspicious for metastatic lesions. Findings called to Dr. Nath of the emergency department. RADIATION DOSE DELIVERED: 417.47mGy.cm Total DLP DATA REPOSITORY: All CT scans at this facility are submitted to the National Radiology Data Registry (NRDR) Dose Index Registry (DIR) with the [employer] (ACR). RADIATION OPTIMIZATION: All CT scans at this facility use at least one of these dose optimization te chniques: automated exposure control; mA and/or kV adjustment per patient size (includes targeted exa ms where dose is matched to clinical indication); or iterative reconstruction.
--- NOTE | 2025-02-02 17:25 | W.ED.GENAD ---
Discharge Plan Disposition Patient Disposition: Home Condition: Stable Discharge Details Clinical Impression: Closed compression fracture of lumbar vertebra Primary Care Provider: Silke Bergmna ED Provider: Natasha Naranjo Home Meds and New Rx's Prescriptions: New lidocaine [Lidoderm] 5 % adhesive patch,medicated 1 patch topical DAILY Qty: 30 0RF Rx Instructions: leave on most painful area for up to 12 hrs No Action aspirin [Adult Aspirin Regimen] 81 mg tablet,delayed release (DR/EC) 81 mg PO DAILY Patient Comments: pt reports taking twice daily mecobalamin (vitamin B12) 1,000 mcg tablet,chewable 1,000 mcg PO DAILY multivitamin [Daily Multi-Vitamin] 1 EACH tablet 1 ea PO DAILY metoprolol tartrate 50 MG tablet 50 mg PO BID ibuprofen [Advil] 200 mg tablet 200 mg PO Q12H PRN phenytoin sodium extended 100 mg capsule 100 mg PO TID Patient Comments: per PCP 10/04/24 acetaminophen 325 mg Tablet 650 mg PO QID Qty: 0 0RF polyethylene glycol 3350 17 gram Powder In Packet 17 g PO DAILY PRN PRN (Reason: Constipation) Qty: 0 0RF Discharge Instructions Instructions: Vertebral Compression Fracture ED Additional Instructions: You were seen in the emergency department today for back pain after a fall yesterday. I did review your imaging from yesterday, which shows that you have compression fractures of L1 and L3. These are very mild, and do not require surgery. I did place a referral to physical therapy for you to be fitted for a brace if you continue to have discomfort. You need to follow-up with your primary care provider for reassessment. Please continue to use your Advil for pain, and I provided you with a prescription for Lidoderm patches. If you develop any symptoms such as numbness, weakness, or loss of bowel or bladder control, you need to return to the emergency department immediately for reevaluation. Thank you for allowing us to be part of your care. HPI General Mode of arrival: ambulatory. Date/Time Provider Initiated Documentation: 02/02/25 16:43. Limitations to Documentation: no limitations. Information obtained by: patient and old records reviewed. HPI Narrative: This is a 79-year-old female patient presenting for reevaluation of ongoing back back pain after a fall yesterday. She states that she had a full evaluation including CT scan yesterday, went home and was managing her pain with Advil, but noticed a worsening of her lower back when she stands. She has not had any numbness, weakness, urinary or fecal incontinence. She has not sustained any additional falls or trauma to the area. Last dose of ibuprofen at 11 AM. She is otherwise been in her normal state of health and has not noted any new pain or other symptoms. I reviewed the imaging studies and ordered recons of the T and L-spine. I provided the patient with Advil as well as a Lidoderm patch. She reports that her pain significantly improved. I reviewed the findings with her, and provided a referral to physical therapy for TLSO bracing if she continues to have pain. She is very much desiring of discharge at this time, is neuro intact and ambulatory. I do not feel that a consult to a spine surgeon would change this patient's management given the mild nature of the compression fractures. I recommended multimodal pain management to her, provided her with a prescription for Lidoderm patches, and at this time, the patient has had a full medical evaluation and is safe for discharge to home. They are hemodynamically stable, ambulatory, and tolerating PO. They are understanding of the follow-up plan and return precautions. They left our facility without incident. Natasha Naranjo MD Related Data Home Medications ?Medication ?Instructions ?Recorded ?Confirmed metoprolol tartrate 50 mg tablet 50 mg PO BID 11/29/17 02/02/25 multivitamin (Daily Multi-Vitamin 1 ea PO DAILY 11/29/17 02/02/25 tablet) mecobalamin (vitamin B12) 1,000 1,000 mcg PO DAILY 07/30/20 02/02/25 mcg chewable tablet ibuprofen 200 mg tablet (Advil) 200 mg PO Q12H PRN 03/05/22 02/02/25 aspirin 81 mg tablet,delayed 81 mg PO DAILY 04/13/23 02/02/25 release (Adult Aspirin Regimen) acetaminophen 325 mg tablet 650 mg (2 x 325 mg) PO QID #0 tabs 04/25/24 02/02/25 polyethylene glycol 3350 17 gram 17 g PO DAILY PRN PRN Constipation 04/25/24 02/02/25 oral powder packet #0 ea phenytoin sodium extended 100 mg 100 mg PO TID 10/05/24 02/02/25 capsule lidocaine 5 % topical patch 1 patch topical DAILY #30 ea 02/02/25 (Lidoderm) Previous Rx's ?Medication ?Instructions ?Recorded acetaminophen 325 mg tablet 650 mg (2 x 325 mg) PO QID #0 tabs 04/25/24 polyethylene glycol 3350 17 gram 17 g PO DAILY PRN PRN Constipation 04/25/24 oral powder packet #0 ea lidocaine 5 % topical patch 1 patch topical DAILY #30 ea 02/02/25 (Lidoderm) Allergies Allergy/AdvReac Type Severity Reaction Status Date / Time Penicillins Allergy Intermediate Hives Verified 02/02/25 16:43 cat dander Allergy Mild Hives Verified 02/02/25 16:43 General Stated Complaint: Orthopedic RADHA: 4 Exam Narrative Exam Narrative: Gen: Awake and alert, in no apparent distress HEENT: Non-icteric sclera Neck: Supple Lungs: No apparent respiratory distress, normal respiratory effort. CV: Appears well perfused Abdomen: Non-distended MSK: Moves 4 extremities without apparent limitation in ROM Skin: Visualized skin without rashes, cyanosis. Neuro: Normal Gait, no obvious focal deficits or facial asymmetry. Speaks in full, clear sentences. Psych: Appropriate for situation. Course Vital Signs Vital signs: Vital Signs Temperature 36.5 C 02/02/25 16:38 Pulse 78 02/02/25 16:38 Respiratory Rate 16 02/02/25 16:38 Blood Pressure 107/72 02/02/25 16:38 Pulse Oximetry 94 02/02/25 16:38 Temperature 36.5 C 02/02/25 16:38 Temperature Source Oral 02/02/25 16:38 Pulse 78 02/02/25 16:38 Respiratory Rate 16 02/02/25 16:38 Blood Pressure 107/72 02/02/25 16:38 Pulse Oximetry 94 02/02/25 16:38 Medical Decision Making Quality:SDOH Health Related Social Needs: Health related social needs transportation insecurity (Z59.82) Health related social needs details Pt states, Sure I'd love to have some help with transportation. I just take Taxis when I need to go somewhere. 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) Cerebral cavernoma (Acute 04/27/18) Medical History Pain of right hip joint Carpal tunnel syndrome Seizure Senile osteoporosis Arthralgia of ankle Knee joint laxity Disorder of urethra Essential hypertension Visual disturbance Epilepsy Anxiety disorder Mild recurrent major depression Seizure disorder HLD (hyperlipidemia) Urethral prolapse Low back pain Fatigue Osteoarthritis GERD (gastroesophageal reflux disease) Hypertension Surgical History H/O cataract extraction S/P appendectomy H/O breast biopsy S/P wrist surgery Family History Father Hyperlipidemia Heart disease Sister Alcohol abuse Maternal Grandmother Family hx-stroke Maternal Grandfather Heart disease Social History Smoking/Tobacco Use Status: Former Tobacco Use tobacco type: cigarettes Quit Date: 09/13/69 Smoking risk assessment performed?: Yes Alcohol Intake: current Alcohol Intake frequency: holidays/special occasions only Drug use: Never Substance use type: does not use Housing: apartment Number of Children: 1 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
[2025-02-02] MEDS: Ibuprofen 600 MG TAB PO (17:37)
[2025-02-02] MEDS: Lidocaine 5% Patch 1 PATCH TP (17:38)
[2025-02-02 17:39] VITALS: BP 114/60; PULSE 81; RESP 18; O2SAT 96
[2025-02-02 18:27] VITALS: BP 116/61; PULSE 85; RESP 18; O2SAT 98
--- NOTE | 2025-02-02 20:38 | DI.VRAD_ITS ---
Addendum created by Juan Rajput MD on 02/02/2025 8:44:05 PM EDT: THIS REPORT CONTAINS FINDINGS THAT MAY BE CRITICAL TO PATIENT CARE. By report, the imaging findings of the right lower lobe pulmonary artery were described on CT angiogram. The findings were verbally communicated via telephone conference with Natasha Naranjo at 8:41 PM EDT on 02/02/2025. The findings were acknowledged and understood. Initial report created on 02/02/2025 8:38:23 PM EDT: PROCEDURE INFORMATION: Exam: CT Thoracic Spine Without Contrast Exam date and time: 02/01/2025 12:52 PM Age: 79 years old Clinical indication: Injury or trauma; Blunt trauma (contusions or hematomas); Injury date: 02/01/25; Fall, low back pain TECHNIQUE: Imaging protocol: Computed tomography of the thoracic spine without contrast. Radiation optimization: All CT scans at this facility use at least one of these dose optimization techniques: automated exposure control; mA and/or kV adjustment per patient size (includes targeted exams where dose is matched to clinical indication); or iterative reconstruction. COMPARISON: CT HEAD CERVICAL SPINE WO 02/01/2025 12:42 PM FINDINGS: Bones/joints: Twelve rib-bearing thoracic type vertebral bodies. No acute fracture or subluxation. Scattered endplate Schmorl's nodes. No gross high-grade spinal canal stenosis. Soft tissues: Unremarkable. Vasculature: Right lower lobe pulmonary artery embolism is incompletely evaluated. See the CT angiogram examination dictated separately. Ectasia of the descending thoracic aorta measures up to 3.6 cm transverse diameter, incompletely evaluated. Thyroid: Dominant mass of the right thyroid is incompletely evaluated, better seen on the CT cervical spine examination. Adrenal glands: Complex bilateral adrenal masses with calcification are incompletely evaluated, [id number]. IMPRESSION: 1. Right lower lobe pulmonary artery embolism is incompletely evaluated, see the CT chest examination dictated separately. 2. Ectasia of the descending thoracic aorta measuring up to 3.6 cm in transverse diameter, incompletely evaluated. Recommend clinical assessment and follow-up. 3. No acute fracture or subluxation of the thoracic spine. 4. Dominant right thyroid nodule is incompletely evaluated. By ACR guidance, further evaluation with nonemergent ultrasound is recommended. 5. Complex bilateral adrenal masses are incompletely evaluated. Non-emergent adrenal CT is recommended. (Reference: Oswaldo) REFERENCES: Oswaldo DEJESUS et al. Management of Incidental Adrenal Masses: A White Paper of the ACR Incidental Findings Committee. J Am Caterina Radiol. 2017;14(8):6659-9142. PROCEDURE INFORMATION: Exam: CT Lumbar Spine Without Contrast Exam date and time: 02/01/2025 12:52 PM Age: 79 years old Clinical indication: Injury or trauma; Blunt trauma (contusions or hematomas); Injury date: 02/01/25; Fall, low back pain TECHNIQUE: Imaging protocol: Computed tomography of the lumbar spine without contrast. Radiation optimization: All CT scans at this facility use at least one of these dose optimization techniques: automated exposure control; mA and/or kV adjustment per patient size (includes targeted exams where dose is matched to clinical indication); or iterative reconstruction. COMPARISON: No relevant prior studies available. FINDINGS: Bones/joints: Five [id number] lumbar type vertebral bodies. Age-indeterminate inferior endplate deformity at L1 and superior endplate deformity at L3; by morphology these appear to be subacute to chronic in nature. Mild retrolisthesis of L1 and mild grade 1 anterolisthesis of L4 and L5. No gross high-grade spinal canal stenosis. Severe degenerative changes of the hips are incompletely evaluated. Soft tissues: Unremarkable. IMPRESSION: Age indeterminate but likely subacute to chronic endplate fractures at L1 and L3. If symptomatic consider MRI for further characterization. Dictated and Authenticated by: Juan Rajput MD. Orderin [facility]. Jasper Kaur MD
[2025-02-02 22:44] VITALS: BP 124/78; RESP 16
[2025-02-03] MEDS: Lidocaine 5% Patch 1 PATCH (10:07)
== END 2025-02-03 07:51 | disposition home or self-care (01) ==
PROVIDERS: Emergency Provider Emergency Medicine; PCP Nurse Practitioner Family
DX: M48.56XA Collapsed vertebra, not elsewhere classified, lumbar region, initial encounter for fracture (principal); I10 Essential (primary) hypertension; E78.5 Hyperlipidemia, unspecified; Z79.82 Long term (current) use of aspirin
CPT/HCPCS: 99285; 99284

== ENCOUNTER 2025-02-13 14:25 | Observation (INO) | payer MEDICARE, SELFPAY ==
[2025-02-13] VITALS (8 sets, daily range): BP systolic 105–136; BP diastolic 63–82; PULSE 16–94; RESP 16–101; TEMP 35.2–36.8; O2SAT 93–99
--- NOTE | 2025-02-13 14:24 | W.ED.GENAD ---
Discharge Plan Disposition Patient Disposition: Admit to [facility] Condition: Stable Discharge Details Clinical Impression: GI bleed Primary Care Provider: Silke Bergman ED Provider: Juan Cardenas [place] Meds and New Rx's Prescriptions: No Action aspirin [Adult Aspirin Regimen] 81 mg tablet,delayed release (DR/EC) 81 mg PO DAILY Patient Comments: pt reports taking twice daily mecobalamin (vitamin B12) 1,000 mcg tablet,chewable 1,000 mcg PO DAILY metoprolol tartrate 50 MG tablet 50 mg PO BID phenytoin sodium extended 100 mg capsule 100 mg PO QID Patient Comments: per PCP 10/04/24 celecoxib [Celebrex] 200 mg capsule 200 mg PO DAILY lidocaine [Lidoderm] 5 % adhesive patch,medicated 1 patch topical DAILY Qty: 30 0RF Rx Instructions: leave on most painful area for up to 12 hrs HPI General Mode of arrival: EMS. Date/Time Provider Initiated Documentation: 02/13/25 15:26. Limitations to Documentation: no limitations. Information obtained by: patient, RN notes reviewed and old records reviewed. HPI Narrative: Patient presents to the ED by ambulance with presumed GI bleed. Patient reports 3 large bowel movements consisting of black stool mixed with blood. First episode occurred this morning around 6 AM. She did not wish to come into the ED but home health finally convinced her and EMS was contacted. She is feeling short of breath with exertion and weak and lightheaded. Denies any chest pain. Denies any nausea or vomiting. Has intermittent upper abdominal discomfort but none currently. Has back pain and has been taken 600 mg of ibuprofen every 5-6 hours for the last week. She was seen here last week after syncope/fall. Workup showed a right lung mass as well as possible masses in the brain and adrenal gland. She was subsequently seen the following day for continued back pain. Review of the CTs did suggest subacute versus chronic compression fractures of L1 and L3. Again patient declined admission but did accept referrals. She has been taking the ibuprofen since that time. Related Data Home Medications ?Medication ?Instructions ?Recorded ?Confirmed metoprolol tartrate 50 mg tablet 50 mg PO BID 11/29/17 02/02/25 mecobalamin (vitamin B12) 1,000 1,000 mcg PO DAILY 07/30/20 02/02/25 mcg chewable tablet aspirin 81 mg tablet,delayed 81 mg PO DAILY 04/13/23 02/02/25 release (Adult Aspirin Regimen) lidocaine 5 % topical patch 1 patch topical DAILY #30 ea 02/02/25 (Lidoderm) celecoxib 200 mg capsule (Celebrex) 200 mg PO DAILY 02/13/25 phenytoin sodium extended 100 mg 100 mg PO QID 02/13/25 capsule Previous Rx's ?Medication ?Instructions ?Recorded lidocaine 5 % topical patch 1 patch topical DAILY #30 ea 02/02/25 (Lidoderm) Allergies Allergy/AdvReac Type Severity Reaction Status Date / Time Penicillins Allergy Intermediate Hives Verified 02/02/25 16:43 cat dander Allergy Mild Hives Verified 02/02/25 16:43 General RADHA: 4 Exam Narrative Exam Narrative: Const: WDWN elderly female in NAD. VS per triage. HEENT: NC/AT. Normal facial exam. Neck: Supple. Trachea midline. Lungs: Normal respiratory effort. Cor: RRR. Good radial pulses. GI: Soft/ND/NT. Neuro: A+O x 3. Normal speech, mentation. Cranial nerves II - XII grossly intact. No gross motor or sensory deficit. Ext: No C/C/E. Skin: Appears a little pale, cool. Medical Decision Making Patient presenting to ED with complaint of GI bleed. She has been taken 600 of ibuprofen every 5-6 hours for the last week for low back pain thought likely related to subacute compression fractures of the LS spine. She was seen in the ED prior to that visit after syncope with fall. She was found to have a right lung mass with possible masses/mets to the brain and adrenal gland. She has declined any sort of treatment. She has subsequently followed up with primary care and is willing to undergo diagnostic procedures to determine the diagnosis, extent of disease, life expectancy. She does not wish for CPR or intubation. She has previously refused admissions. She is acceptable to admission, IV fluids, medications and possibly blood transfusion at this time given that bleed is all likely result of ulcer from ibuprofen use. As such we will continue the IV fluids that EMS started. She has noted to be sinus rhythm on the monitor. Will obtain a CBC and BMP as well as type and screen. IV famotidine and pantoprazole ordered. 03:34 - Patient's hemoglobin is down to 7.1. She was 8.3 on February 01 when she was seen after her syncopal event. Her hemoglobin was 9.8 back in September of this year and normal prior to that. She has remained hemodynamically stable but is very weak, fatigued and pale. Further discussion with the patient regarding goals of care. Again, she is at the point where she is planning on diagnostic approach to determine whether she truly has cancer or not and what her prognosis may be. She does confirm wanting to be a DNR/DNI. She has okayed admission, blood transfusion, medical management. I have spoken to the hospitalist, Dr. Perez, and they have accepted her to their service. I did reach out to surgery, per hospitalist request, to make them aware of the patient and any potential for EGD. Dr. Markham is aware. Medical Records Medical records reviewed: Yes I reviewed the patient's medical records. Medical records narrative: PCP note from 02/09 Lab Data Lab results reviewed: Yes I reviewed the patient's lab results. Lab results narrative: see MDM Quality:SDOH Health Related Social Needs: Health related social needs transportation insecurity (Z59.82) Health related social needs details Pt states, Sure I'd love to have some help with transportation. I just take Taxis when I need to go somewhere. 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) B12 deficiency (Acute) Cerebral cavernoma (Acute 04/27/18) Medical History Afib Closed fracture of greater trochanter of right femur Senile osteoporosis Anxiety disorder Mild recurrent major depression Seizure disorder HLD (hyperlipidemia) Osteoarthritis GERD (gastroesophageal reflux disease) Hypertension Surgical History H/O cataract extraction S/P appendectomy H/O breast biopsy S/P wrist surgery Family History Father Hyperlipidemia Heart disease Sister Alcohol abuse Maternal Grandmother Family hx-stroke Maternal Grandfather Heart disease Social History Smoking/Tobacco Use Status: Former Tobacco Use tobacco type: cigarettes Quit Date: 09/13/69 Smoking risk assessment performed?: Yes Alcohol Intake: current Alcohol Intake frequency: holidays/special occasions only Drug use: Never Substance use type: does not use Housing: apartment Number of Children: 1 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
[2025-02-13 14:51] LABS: HGB 7.1 g/dL (11.2-15.7); MCH 24.4 pg (27.0-33.0); MCV 83 fL (80-95); MPV 9.6 fL (8.0-11.0); Platelet Count 177 10^3/uL (130-400); RBC 2.91 10^6/uL (3.93-5.22); RDW-SD 57.3 fL; WBC 10.49 10^3/uL (4.4-10.8)
[2025-02-13] MEDS: Famotidine 20 MG/2 ML VIAL IVP (14:55)
[2025-02-13] MEDS: Pantoprazole 40 MG VIAL IVP ×2 (14:55→20:22)
[2025-02-13 15:06] LABS: MCHC 29.6 % (32.0-36.0)
[2025-02-13 15:12] LABS: Anion Gap 6.6 mmol/L (3-11); BUN 24 mg/dL (7-18); CO2 28.4 mmol/L (21.0-32.0); CREATININE 0.5 mg/dL (0.55-1.02); Calcium 7.9 mg/dL (8.5-10.1); Chloride 108 mmol/L (98-107); Estimated GFR 96.54 (mL/min/1.73m2); Glucose 138 mg/dL (74-106); Potassium 3.5 mmol/L (3.5-5.1); Sodium 143 mmol/L (136-145)
--- NOTE | 2025-02-13 16:28 | W.PC.ACHO ---
Registration Status: Primary Language: Preferred Language: ED Information & Data Chief Complaint GI Bleed 02/13/25 14:32 Triage Note x3 large black stool with 02/13/25 14:32 red blood, dizziness with some SOB Medical / Surgical History (Last Reviewed 02/13/25 @ 14:44 by Juan Cardenas MD) Afib Closed fracture of greater trochanter of right femur Senile osteoporosis Anxiety disorder Mild recurrent major depression Seizure disorder HLD (hyperlipidemia) Osteoarthritis GERD (gastroesophageal reflux disease) Hypertension (Last Reviewed 02/13/25 @ 14:44 by Juan Cardenas MD) H/O cataract extraction S/P appendectomy H/O breast biopsy S/P wrist surgery Most Recent Vital Signs Pulse 16 L 02/13/25 14:32 Respiratory Rate 101 H 02/13/25 14:32 Blood Pressure 124/63 02/13/25 14:32 Pulse Oximetry 97 02/13/25 14:32 Allergies Penicillins Allergy (Intermediate, Verified 02/02/25 16:43) Hives cat dander Allergy (Mild, Verified 02/02/25 16:43) Hives IV IV Catheter Type [Left Peripheral IV Antecubital] IV Catheter Type [Right Saline Lock Forearm] IV Catheter Gauge [Left 18 Antecubital] IV Catheter Gauge [Right 18 Forearm] Diagnostics 02/13/25 02/13/25 Range/Units 15:35 14:47 WBC 10.49 (4.4-10.8) 10^3/uL RBC 2.91 L (3.93-5.22) 10^6/uL Hgb 7.1 L (11.2-15.7) g/dL Hct 24.0 L (36.0-46.0) % MCV 83 (80-95) fL MCH 24.4 L (27.0-33.0) pg MCHC 29.6 L (32.0-36.0) % RDW 19.0 H (11.7-14.6) % Plt Count 177 (130-400) 10^3/uL MPV 9.6 (8.0-11.0) fL Sodium 143 (136-145) mmol/L Potassium 3.5 (3.5-5.1) mmol/L Chloride 108 H (98-107) mmol/L Carbon Dioxide 28.4 (21.0-32.0) mmol/L Anion Gap 6.6 (3-11) mmol/L BUN 24 H (7-18) mg/dL Creatinine 0.5 L (0.55-1.02) mg/dL Est GFR (CKD-EPI 2020) 96.54 (mL/min/1.73m2) Glucose 138 H (74-106) mg/dL Calcium 7.9 L (8.5-10.1) mg/dL ABO/Rh O Positive Unit ABO/Rh Cancelled Blood Type Recheck O Positive Cancelled Antibody Screen NEGATIVE Crossmatch See Detail Intake and Output - 24 Hour Total 02/13/25 14:21 thru 02/13/25 14:43 Intake Total 10 Balance 10 Weight 31.207 kg Intake: IV 10 Problems (Last Reviewed 02/13/25 @ 14:44 by Juan Cardenas MD) GI bleed (Chronic) v v v v v v v v v Sending and/or Receiving Nurses: Please use comment section below to note any information pertinent to the patient hand-off not included above. Information / Comments: Report received from: Received report from Jessica in the ED. Pt is here for a GI bleed, ED is starting a unit of blood and will bring her up
--- NOTE | 2025-02-13 19:25 | HPE_ITS ---
Date of service: 02/13/25 Time of Service: 16:00 Assessment and Plan Assessment and plan (1) GI bleed: Status: Acute Assessment and plan: Gastrointestinal (GI) Bleed ? Presumed NSAID-induced (likely upper source): * Patient presents with melena and symptomatic anemia (Hgb dropped from 9.8 in September 8.3 on 02/01 7.1 today) * History of recent high-dose ibuprofen use for back pain; no current signs of active upper GI distress but at risk for ulcer * Continue IV fluids * Transfuse PRBCs as needed for symptomatic anemia * IV famotidine and pantoprazole initiated * Type and screen completed * GI consult or surgical evaluation for possible EGD (Dr. Markham aware) * Monitor hemoglobin and hemodynamic stability (2) Mass of right lung: Status: Chronic Assessment and plan: Workup pending; previously declined admission and treatment Currently pursuing diagnostic clarification but remains DNR/DNII * Respect patient?s goals of care * Palliative/supportive approach during admission * Confirm whether she is scheduled for biopsy or additional imaging * Social work/case management consult to assist with coordination * She is agreeable to supportive treatments including transfusion and hospitalization * Declines CPR, intubation, or aggressive oncologic intervention * Revisit goals of care if clinical status changes (3) Low back pain: Status: Chronic Assessment and plan: Likely worsened by recent fall and subacute/chronic compression fractures * Discontinue NSAIDs due to GI bleed * Consider acetaminophen or lidocaine patch for pain control * PT consult as appropriate for mobility support during admission History of Present Illness History of Present Illness Chief Complaint: Blood in stool Narrative: Patient is a 79-year-old female presenting to the Emergency Department via ambulance with presumed gastrointestinal bleeding. She reports three large bowel movements consisting of black stool mixed with blood, beginning around 6:00 AM today. Initially reluctant to seek care, she was eventually persuaded by home health to present to the ED. She reports: * Shortness of breath with exertion * Generalized weakness and lightheadedness * Denies chest pain, nausea, or vomiting * Describes intermittent upper abdominal discomfort (none at time of evaluation) * Persistent low back pain, for which she has been self-medicating with 600 mg of ibuprofen every 5?6 hours for the past week Patient has a complex medical history including: * Recent ED visit for syncope and a fall, with imaging revealing a right lung mass and suspected metastatic lesions to the brain and adrenal gland * Subacute/chronic compression fractures of L1 and L3 noted on spine CT * She declined admission at the time but accepted referrals for outpatient diagnostics * Recently resumed care with PCP, agreed to diagnostic workup but continues to decline curative treatment * States she is a DNR/DNI and wishes for comfort-focused medical management On ED presentation today, she was pale, fatigued, but hemodynamically stable. No gross neurological deficits were noted on exam. EMS started IV fluids en route. Her hemoglobin was 7.1, down from 8.3 on 02/01 and 9.8 in September, indicating likely chronic blood loss, presumably NSAID-induced ulcer. Given clinical stability but symptomatic anemia, decision was made to admit for further evaluation and blood transfusion. She is agreeable to: * Hospital admission * IV fluids and medications * Transfusion if indicated She remains DNR/DNI and declines aggressive intervention. Surgery was consulted for possible EGD. Dr. Markham (surgery) is aware. Patient is placed on observation status for further testing and treatment. 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) B12 deficiency (Acute) Cerebral cavernoma (Acute 04/27/18) Medical History Afib Closed fracture of greater trochanter of right femur Senile osteoporosis Anxiety disorder Mild recurrent major depression Seizure disorder HLD (hyperlipidemia) Osteoarthritis GERD (gastroesophageal reflux disease) Hypertension Surgical History H/O cataract extraction S/P appendectomy H/O breast biopsy S/P wrist surgery Family History Father Hyperlipidemia Heart disease Sister Alcohol abuse Maternal Grandmother Family hx-stroke Maternal Grandfather Heart disease Social History Smoking/Tobacco Use Status: Former Tobacco Use tobacco type: cigarettes Quit Date: 09/13/69 Smoking risk assessment performed?: Yes Alcohol Intake: current Alcohol Intake frequency: holidays/special occasions only Drug use: Never Substance use type: does not use Housing: apartment Number of Children: 1 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 Current gender 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 Meds Allergies and Home Medications Allergies Allergy/AdvReac Type Severity Reaction Status Date / Time Penicillins Allergy Intermediate Hives Verified 02/02/25 16:43 cat dander Allergy Mild Hives Verified 02/02/25 16:43 Home Medications ?Medication ?Instructions ?Recorded ?Confirmed ?Type metoprolol tartrate 50 mg tablet 50 mg PO BID 11/29/17 02/13/25 History mecobalamin (vitamin B12) 1,000 1,000 mcg PO DAILY 07/30/20 02/13/25 History mcg chewable tablet aspirin 81 mg tablet,delayed 81 mg PO DAILY 04/13/23 02/13/25 History release (Adult Aspirin Regimen) lidocaine 5 % topical patch 1 patch topical DAILY #30 ea 02/02/25 02/13/25 Rx (Lidoderm) celecoxib 200 mg capsule (Celebrex) 200 mg PO DAILY 02/13/25 02/13/25 History phenytoin sodium extended 100 mg 100 mg PO QID 02/13/25 02/13/25 History capsule Exam Narrative Exam Narrative: General: Well-developed, well-nourished elderly female. No acute distress noted. Appears pal Vital Signs: noted to be hemodynamically stable HEENT: Normocephalic, atraumatic. Normal facial features. Neck: Supple, no lymphadenopathy. Trachea midline. Respiratory: Normal respiratory effort. No rales, wheezes, or rhonchi. Cardiovascular: Regular rate and rhythm. Good radial pulses bilaterally. No murmurs, rubs, or gallops noted. Gastrointestinal: Abdomen soft, non-distended, non-tender. No rebound or guarding. Neurologic: Alert and oriented to person, place, and time. Normal speech and mentation. Cranial nerves II?XII grossly intact. No focal motor or sensory deficits observed. Extremities: No cyanosis, clubbing, or edema. Skin: Pale and cool to touch. No rashes or lesions noted. Psychiatric: Cooperative, appropriate affect. Results Labs 02/13/25 14:47 02/13/25 14:47 Labs: Laboratory Results - last 24 hr 02/13/25 02/13/25 14:47 15:35 WBC 10.49 RBC 2.91 L Hgb 7.1 L Hct 24.0 L MCV 83 MCH 24.4 L MCHC 29.6 L RDW 19.0 H Plt Count 177 MPV 9.6 Sodium 143 Potassium 3.5 Chloride 108 H Carbon Dioxide 28.4 Anion Gap 6.6 BUN 24 H Creatinine 0.5 L Est GFR (CKD-EPI 2020) 96.54 Glucose 138 H Calcium 7.9 L ABO/Rh O Positive Unit ABO/Rh Cancelled Blood Type Recheck Cancelled O Positive Antibody Screen NEGATIVE Crossmatch See Detail Last Vital Signs Temp 36.4 C L 02/13/25 17:20 Pulse 93 H 02/13/25 17:20 Resp 17 02/13/25 17:20 BP 110/73 02/13/25 17:20 Pulse Ox 93 02/13/25 17:20 Time Spent Time spent with Patient: 40-54 minutes Time was spent: preparing to see the patient(eg.review tests), obtaining and/or reviewing separately otained hiistory, ordering medications,tests, procedures, referring, communicating with other health careers adviser, indepentently interpreting results, counseling the patient and care coordination
[2025-02-13 20:03] LABS: HCT 23.9 % (36.0-46.0); HGB 7.2 g/dL (11.2-15.7)
[2025-02-13] MEDS: Metoprolol 50 MG TAB PO (20:22)
[2025-02-13] MEDS: Lidocaine 5% Patch 1 PATCH TP (20:22)
[2025-02-13] MEDS: Normal Saline Flush 10 ML SYR IVP (20:23)
[2025-02-14] VITALS (22 sets, daily range): BP systolic 100–143; BP diastolic 55–85; PULSE 79–98; RESP 15–22; TEMP 36–37.2; O2SAT 93–100
[2025-02-14 07:09] LABS: Abs Immature Grans 0.03 10^3/uL (0.0-0.06); Absolute Basophil Count 0.03 10^3/uL (0.0-0.2); Absolute Eosinophil Count 0.13 10^3/uL (0.0-0.7); Absolute Lymphocyte Count 1.64 10^3/uL (1.2-3.4); Absolute Monocyte Count 0.65 10^3/uL (0.1-0.8); Absolute Neutrophil Count 5.38 10^3/uL (1.2-6.7); Basophils % 0.4 %; Eosinophils % 1.7 %; HCT 23.9 % (36.0-46.0); HGB 7.1 g/dL (11.2-15.7); Immature Grans % 0.4 %; Lymphocytes % 20.9 %; MCH 24.1 pg (27.0-33.0); MCHC 29.7 % (32.0-36.0); MCV 81 fL (80-95); Monocytes % 8.3 %; Neutrophils % 68.3 %; Platelet Count 168 10^3/uL (130-400); RBC 2.95 10^6/uL (3.93-5.22); RDW 18.6 % (11.7-14.6); RDW-SD 54.9 fL; WBC 7.86 10^3/uL (4.4-10.8)
[2025-02-14 07:16] LABS: Anion Gap 6.5 mmol/L (3-11); BUN 22 mg/dL (7-18); CO2 26.5 mmol/L (21.0-32.0); CREATININE 0.7 mg/dL (0.55-1.02); Calcium 7.9 mg/dL (8.5-10.1); Chloride 109 mmol/L (98-107); Estimated GFR 89.02 (mL/min/1.73m2); Glucose 98 mg/dL (74-106); Magnesium 1.6 mg/dL (1.8-2.4); Potassium 3.7 mmol/L (3.5-5.1); Sodium 142 mmol/L (136-145)
[2025-02-14] MEDS: Patch Removal 1 EACH TP (07:28)
[2025-02-14] MEDS: MORPHine 2 MG/ML SYR IVP (08:05)
[2025-02-14] MEDS: Metoprolol 50 MG TAB PO ×2 (08:10→19:42)
[2025-02-14] MEDS: Cyanocobalamin 500 MCG TAB 1000 MCG PO (08:11)
[2025-02-14] MEDS: Pantoprazole 40 MG VIAL IVP ×2 (08:11→19:42)
[2025-02-14] MEDS: Normal Saline Flush 10 ML SYR IVP ×3 (08:11→19:43)
--- NOTE | 2025-02-14 10:03 | W.PALLCONSUL ---
Date of service: 02/14/25 Time of Service: 10:00 History of Present Illness Narrative: Ms. Barahona is a 79 y/o F currently hospitalized at [facility] 10/15 GIB; PMHx sig for A fib, seizure d/o, OA, HTN, GERD, anxiety, depression; Hospital Course: ED presentation 02/01 10/15 syncopal episode, imaging consistent w/RLL mass, adrenal masses, brain lesions, all suspicious of malignancy/metastatic disease, reported preference no work up; re-presented to ED on 02/13 10/15 GIB w/bloody stools/melena x3, admitted to [facility] for ongoing medication management and transfusions, she is receiving both IVF and PRBCs; surgical consult for potential EGD to identify GIB site - per staff: concern for pain, not managed, she has some fear regarding opioids and addiction; last BM last evening w/blood, no bowels today, continent of urine/bowels, pain limiting activity, has not gotten OOB today, 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 She has never had a period of time where she used substances in an abusive/addictive way, though does state she has been using substances since she was 11 and they don't do anything for her. She is having a hard time thinking about other things because her pain has been pretty extreme. Pain from compression fracture in back, found on latest imaging; Fortunately, she got good relief w/morphine today. She is aware of potential cancerous lesions in multiple places, lists lung, brain and thyroid, agrees adrenal masses also present. Her daughter wants her to get a biopsy to know if it is cancer, Brooklyn knows she would not want any treatment for cancer, especially bc its in multiple locations. Her mom had cancer and knows the treatments are painful. She would trust her daughter Loli to make decisions for her if she couldn't make them herself; she is okay w/having blood transfusions, antibiotics, IVF, etc, treatments to cure or reverse treatable illnesses; she reports she has completed a COLST that is DNR/I and CLINICAL PRODUCT SPECIALIST, she states this is for when she is terminal and she is not there today. - she would be interested in MAID if she were eligible and at a later time would like to hear more about these options telephone call w/daughter - she was w/mom when she completed COLST w/PCP last week, reports mom did say CLINICAL PRODUCT SPECIALIST and was aware this started now - [place] told her she wasn't sure she wanted a biopsy bc of the travel hassle and inconvenience, potentially bad experiences previously at - some MH history, long standing, not formally diagnosed, potentially personality disorder, has flip flopped chronically, going with what people tell her vs making decisions on her own; - daughter wants Brooklyn to be in control of decisions and what the wants as much as possible, allowing her choose direction of care - h/o hip fracture in April Assessment and Plan Assessment and plan (1) GI bleed: Status: Acute Assessment and plan: unknown source, presumed NSAID induced; see surgical consult note receiving unit PRBC today, repeat labs post continue IVF and GI protective meds (2) Low back pain: Status: Chronic Assessment and plan: relieved w/morphine 2mg IVP continue morphine PRN, will need transition to oral meds prior to discharge (3) Closed compression fracture of lumbar vertebra: Status: Acute (4) Adrenal mass: Status: Acute (5) Calcification of brain: Status: Acute (6) Mass of right lung: Status: Chronic Assessment and plan: unclear if she would want further work up, would not want treatment - no scheduled f/u to date, aware of biopsy for next steps (7) Gait abnormality: Status: Acute Assessment and plan: 2/2 pain todayl; consider PT consult, though she is already on HH services, started 02/11: RN, PT, [employer] high fall risk multiple home falls (8) Palliative care encounter: Status: Acute Assessment and plan: PC will continue to follow during this hospitalization, f/u plan for Wednesday if not discharged prior; plan for outpatient f/u 1-2wks - ongoing review of oncology preferences, completion of AD, as it does appear she would want CLINICAL PRODUCT SPECIALIST some time in near future and this could be helpful tool for decision making later on or for daughter reference (9) ACP (advance care planning): Status: Acute Assessment and plan: reviewed pain concerns, risks benefits of opioids, risk of addiction vs pain limiting abilities, QoL, monitoring for addiction, etc reviewed oncology typical work up procedure, including biopsy, likely of lung mass first w/additional scans, and appointments likely down at ; today she is unclear what she would want, reports daughter may want biopsy confirmed, today on phone daughter did not indicate as such, rather would prefer follow Brooklyn's lead reviewed HCA and completed HCA form reviewed COLST and updated, changed to today's preferences w/aim to cure/treat what is new or reversible illness (like GIB or infection), and would want to transition to CLINICAL PRODUCT SPECIALIST if terminal/unlikely survival; updated COLST uploaded in chart, shared w/PCP office, original and copies provided to patient reviewed MAID preferences as she indicated she would want to pursue this pending her decision w/cancer wor-up spent 32m w/ACP Review of Systems Narrative: as per HPI PFSH All Active Problems (Updated 02/14/25 @ 14:57 by Sahara Bean NP) ACP (advance care planning) (Acute) Palliative care encounter (Acute) GI bleed (Acute) Low back pain (Chronic) Urethral prolapse (Acute) Closed compression fracture of lumbar vertebra (Acute) Adrenal mass (Acute) Calcification of brain (Acute) Mass of right lung (Chronic) Hemangioma (Acute) liver Gait abnormality (Acute) Depressed (Chronic) Anxiety (Chronic) Right carpal tunnel syndrome (Acute) Numbness of right hand (Acute) 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) B12 deficiency (Acute) Cerebral cavernoma (Acute 04/27/18) Medical History Afib Closed fracture of greater trochanter of right femur Senile osteoporosis Anxiety disorder Mild recurrent major depression Seizure disorder HLD (hyperlipidemia) Osteoarthritis GERD (gastroesophageal reflux disease) Hypertension Surgical History H/O cataract extraction S/P appendectomy H/O breast biopsy S/P wrist surgery Family History Father Hyperlipidemia Heart disease Sister Alcohol abuse Maternal Grandmother Family hx-stroke Maternal Grandfather Heart disease Social History Smoking/Tobacco Use Status: Former Tobacco Use tobacco type: cigarettes Quit Date: 09/13/69 Smoking risk assessment performed?: Yes Alcohol Intake: current Alcohol Intake frequency: holidays/special occasions only Drug use: Never Substance use type: does not use Housing: apartment Number of Children: 1 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 Current gender 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 Exam Narrative Exam Narrative: General: 79 y/o ill appearing female, lying in hospital bed, easily engages HEENT: hearing grossly WNL, MMM, normocephalic, atraumatic Resp: even and unlabored, speaks full sentences w/o SOB, no audible wheeze, no cough Skin: atrophy, dry; IV lines w/IVF and PRBC running Psych: cooperative, pleasant, thought process congruent, judgment/insight fair to normal Results Last Vital Signs Temp 97.3 F L 02/14/25 07:34 Pulse 97 H 02/14/25 07:34 Resp 16 02/14/25 07:34 BP 131/69 02/14/25 07:34 Pulse Ox 100 02/14/25 07:34 Labs 02/14/25 05:56 02/14/25 05:56 Labs: Laboratory Results - last 24 hr 02/13/25 02/13/25 02/13/25 14:47 15:35 19:53 WBC 10.49 RBC 2.91 L Hgb 7.1 L 7.2 L Hct 24.0 L 23.9 L MCV 83 MCH 24.4 L MCHC 29.6 L RDW 19.0 H Plt Count 177 MPV 9.6 Immature Gran % Neutrophils % Lymphocytes % Monocytes % Eosinophils % Basophils % Nucleated RBC % Absolute Neutrophils Absolute Lymphocytes Absolute Monocytes Absolute Eosinophils Absolute Basophils Sodium 143 Potassium 3.5 Chloride 108 H Carbon Dioxide 28.4 Anion Gap 6.6 BUN 24 H Creatinine 0.5 L Est GFR (CKD-EPI 2020) 96.54 Glucose 138 H Calcium 7.9 L Magnesium ABO/Rh O Positive Unit ABO/Rh Cancelled Blood Type Recheck Cancelled O Positive Antibody Screen NEGATIVE Crossmatch See Detail 02/14/25 05:56 WBC 7.86 RBC 2.95 L Hgb 7.1 L Hct 23.9 L MCV 81 MCH 24.1 L MCHC 29.7 L RDW 18.6 H Plt Count 168 MPV 10.0 Immature Gran % 0.4 Neutrophils % 68.3 Lymphocytes % 20.9 Monocytes % 8.3 Eosinophils % 1.7 Basophils % 0.4 Nucleated RBC % 0.0 Absolute Neutrophils 5.38 Absolute Lymphocytes 1.64 Absolute Monocytes 0.65 Absolute Eosinophils 0.13 Absolute Basophils 0.03 Sodium 142 Potassium 3.7 Chloride 109 H Carbon Dioxide 26.5 Anion Gap 6.5 BUN 22 H Creatinine 0.7 Est GFR (CKD-EPI 2020) 89.02 Glucose 98 Calcium 7.9 L Magnesium 1.6 L ABO/Rh Unit ABO/Rh Blood Type Recheck Antibody Screen Crossmatch Time Spent Time Spent with Patient Time Spent(min): 100
--- NOTE | 2025-02-14 11:39 | CHAPLAIN ---
Brooklyn was resting in bed, watching a [place] drama on her laptop when I visited. She said she's in touch with her daughter who is traveling nurse, training nurses at three hospitals in [facility] right now. Brooklyn was very pleasant and shared some personal history. She follows Restorationism traditions.
--- NOTE | 2025-02-14 11:51 | PHA.REVIEW2 ---
Pharmacy Admission Review Admission Clinical Review Admission Pharmacy Review: GI bleed (Acute) Penicillins Allergy (Intermediate, Verified 02/02/25 16:43) Hives cat dander Allergy (Mild, Verified 02/02/25 16:43) Hives Resuscitation Status DNR/DNI Height 5 ft 6 in Weight 57.4 kg Pharmacy Admission Review Renal Dosing Renal Dosing: BUN 22 mg/dL (7-18) H 02/14/25 05:56 Creatinine 0.7 mg/dL (0.55-1.02) 02/14/25 05:56 Medications needing adjustments: Reviewed (CrCl 42.67 mL/min, BUN decreased from 24) List of meds needing interventions: Current medications are okay Anticoagulation Anticoagulation: Hgb 7.1 g/dL (11.2-15.7) L 02/14/25 05:56 Hct 23.9 % (36.0-46.0) L 02/14/25 05:56 Plt Count 168 10^3/uL (130-400) 02/14/25 05:56 Creatinine 0.7 mg/dL (0.55-1.02) 02/14/25 05:56 DVT Prophylaxis: Reviewed (SCDs - GI bleed, Hgb decreased from 7.2) Opiate Usage Evaluate Pain Scale/Pains Meds: Reviewed (morphine IVP 2mg q2h PRN - 2mg / 24 hrs) Relevant Labs Relevant Labs: Sodium 142 mmol/L (136-145) 02/14/25 05:56 Potassium 3.7 mmol/L (3.5-5.1) 02/14/25 05:56 Chloride 109 mmol/L (98-107) H 02/14/25 05:56 Magnesium 1.6 mg/dL (1.8-2.4) L 02/14/25 05:56 Electrolytes, C-Reactive P, ESR: Reviewed Cardiac Review BP, HR, EF%: Reviewed (BP and HR WNL) List meds needing interventions: Has orders for metoprolol 50mg BID and phenytoin extended 100mg QID QTc Review QTc: Reviewed (443 from 02/01/25 - most recent EKG on file) IV to PO Switch IV Medications: Reviewed (morphine, ondansetron and pantoprazole) Home Meds Home Med List reviewed: Reviewed Relevent Home Meds Not ordered & why?: aspirin (on hold) and celecoxib (on hold) Current Meds Current Medication Order Review: Reviewed
--- NOTE | 2025-02-14 12:51 | W.SURGCON ---
Date of service: 02/14/25 Time of Service: 12:51 Assessment and Plan Assessment and plan (1) GI bleed: Status: Acute Assessment and plan: 79-year-old woman with chronic anemia that seems to be acutely worse, although mildly?so. She has clearly been losing quite a bit of weight over the last couple of years. Her imaging is concerning for almost?certain metastatic cancer. It is my understanding she is choosing to do nothing about this - which is certainly her right. She is hemodynamically stable. She is having a little bit of blood loss from her GI track but nothing profound or impressive. The differential diagnosis for the bleeding is very broad in this case. She could have a metastatic lesion in her stomach. She could have a primary colon cancer. She could have liver disease and have ongoing hemorrhoid bleeding. She could have a stress ulcer or a primary peptic ulcer. However, under the most likely circumstances considering the evidence, she probably has erosive gastritis from taking an excessive amount of variable NSAIDs altogether. I think the overall big picture here, is nothing really needs to be done in this particular case. She does not really want anything done anyway which is understandable considering the circumstances. I also think there is enough of an explanation for what is likely going on that invasive procedures are not really indicated at this point beyond proving what we believe clinically. I do think DNR/DNI is appropriate and it needs to be respected. I do think she should have a discussion with palliative care about goals of care. If she is not treating cancer, then she probably needs to consider comfort measures and hospice as opposed to invasive procedures and transfusions. Surgery signing off. She can follow-up in the outpatient setting if she wants to consider invasive procedures to diagnose what is otherwise a chronic problem at this point. I discussed all of this with the patient as well as with the hospitalist team in person. History of Present Illness Narrative: This is a 79-year-old woman who gives very vague history as well as vague answers to direct questions. She admits that she has never had a colonoscopy and also states that she does not want one now. When asked why are you here in the hospital she says it is because she fell a few weeks ago. Everything has been downhill ever since. I asked her about weight loss and she admits that she used to be a size 18 and now I am a size 12. I asked how long she has been losing weight for and she says a couple of weeks. Reportedly she was on ibuprofen, aspirin as well as Celebrex - and now has some blood in her stools. It does not seem that she has a PCP recently. She came in for a fall about 1 year ago. She was hospitalized at that time. Baseline hemoglobin over the last 5 years has been 11?12 historically First signs of anemia were on lab work 6 months ago, and she has been in the 8?7 range for a number of months. For unclear reasons she had a CT scan of her chest, abdomen and pelvis done a couple weeks ago. Imaging shows concern for a pulmonary/lung mass as well as likely adrenal?gland metastasis. A head CT showed the possibility of metastatic lesions in her brain but she has some unusual history of brain lesions. She is DNR/DNI. 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) B12 deficiency (Acute) Cerebral cavernoma (Acute 04/27/18) Medical History Afib Closed fracture of greater trochanter of right femur Senile osteoporosis Anxiety disorder Mild recurrent major depression Seizure disorder HLD (hyperlipidemia) Osteoarthritis GERD (gastroesophageal reflux disease) Hypertension Surgical History H/O cataract extraction S/P appendectomy H/O breast biopsy S/P wrist surgery Family History Father Hyperlipidemia Heart disease Sister Alcohol abuse Maternal Grandmother Family hx-stroke Maternal Grandfather Heart disease Social History Smoking/Tobacco Use Status: Former Tobacco Use tobacco type: cigarettes Quit Date: 09/13/69 Smoking risk assessment performed?: Yes Alcohol Intake: current Alcohol Intake frequency: holidays/special occasions only Drug use: Never Substance use type: does not use Housing: apartment Number of Children: 1 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 She is noticeably pale. She is very thin and has a cachectic appearance in her face. Neuro: Alert and oriented x3 Psych: Reasonably pleasant mood and affect. Unclear insight and understanding into condition. Chest: Non-labored breathing, no wheezing, no visible shortness of breath. Heart: Regular Abdomen: Soft, nondistended and nontender Results Last Vital Signs Temp 97.7 F 02/14/25 12:35 Pulse 90 02/14/25 12:35 Resp 16 02/14/25 12:35 BP 110/61 02/14/25 12:35 Pulse Ox 97 02/14/25 12:35 Labs 02/14/25 05:56 02/14/25 05:56 Labs: Laboratory Results - last 24 hr 02/13/25 02/13/25 02/13/25 14:47 15:35 19:53 WBC 10.49 RBC 2.91 L Hgb 7.1 L 7.2 L Hct 24.0 L 23.9 L MCV 83 MCH 24.4 L MCHC 29.6 L RDW 19.0 H Plt Count 177 MPV 9.6 Immature Gran % Neutrophils % Lymphocytes % Monocytes % Eosinophils % Basophils % Nucleated RBC % Absolute Neutrophils Absolute Lymphocytes Absolute Monocytes Absolute Eosinophils Absolute Basophils Sodium 143 Potassium 3.5 Chloride 108 H Carbon Dioxide 28.4 Anion Gap 6.6 BUN 24 H Creatinine 0.5 L Est GFR (CKD-EPI 2020) 96.54 Glucose 138 H Calcium 7.9 L Magnesium ABO/Rh O Positive Unit ABO/Rh Cancelled Blood Type Recheck Cancelled O Positive Antibody Screen NEGATIVE Crossmatch See Detail 02/14/25 05:56 WBC 7.86 RBC 2.95 L Hgb 7.1 L Hct 23.9 L MCV 81 MCH 24.1 L MCHC 29.7 L RDW 18.6 H Plt Count 168 MPV 10.0 Immature Gran % 0.4 Neutrophils % 68.3 Lymphocytes % 20.9 Monocytes % 8.3 Eosinophils % 1.7 Basophils % 0.4 Nucleated RBC % 0.0 Absolute Neutrophils 5.38 Absolute Lymphocytes 1.64 Absolute Monocytes 0.65 Absolute Eosinophils 0.13 Absolute Basophils 0.03 Sodium 142 Potassium 3.7 Chloride 109 H Carbon Dioxide 26.5 Anion Gap 6.5 BUN 22 H Creatinine 0.7 Est GFR (CKD-EPI 2020) 89.02 Glucose 98 Calcium 7.9 L Magnesium 1.6 L ABO/Rh Unit ABO/Rh Blood Type Recheck Antibody Screen Crossmatch
[2025-02-14 15:05] LABS: HCT 23.3 % (36.0-46.0); HGB 7.1 g/dL (11.2-15.7)
--- NOTE | 2025-02-14 15:41 | PDOC.CMIN ---
Date of service: 02/14/25 Time of Service: 15:41 Care Management Initial Assmt Initial Assessment Reason for Hospitalization: anemia/GIB secondary to NSAID use Functional Status/Living Situation Patient Presentation: Brooklyn presented to the ED yesterday afternoon, with the prompting of her HH providers, due to feeling SOB, weak, tired, and have 3 black stools mixed with blood. On 02/02 Brooklyn presented to the ED s/p a fall. She was found to have a chronic vs acute fracture of L1 and L3. Since that time Brooklyn has been taking 600mg of ibuprofen every 5-6h. She has since received 2 u PRBC. Palliative care has met with Brooklyn today, and has spoken with her daughter, Chanel. Brooklyn has a right lung mass with possible masses/mets to the brain and adrenal gland. Per palliative, she does not want treatment for this, but is still open to treatment for comfort. Brooklyn was very pleasant with CM. She stated that she is in a lot of pain, most of the time. She can't stand for more than 2 minutes at a time. She has to very carefully plan her trips to the kitchen or bathroom. She spends most of her time in a recliner, and has snacks and drinks beside her chair. She has a friend who does some light grocery shopping, her daughter cleans her apartment and does laundry for her, but she is only able to visit about every 2 weeks. Brooklyn lives alone in an apartment in [facility]. She is declining to go to SNF at this time. She will continue with her home health services of RN, PT and [facility], will add OT, as she stated she is having trouble with her ADLs. Referral was sent to [facility] for help with groceries, grocery deliverer and transportation. 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) Instrumental Activities of Daily Living (ADLs): Requires support with Dishes/food prep, Groceries, Laundry and Transportation Medications Medication Management: No Issues/Barriers identified Physical Functioning/Mobility Assistive Device: walker Advance Directives Advance Directives: Do you have an Advance Directive: N 02/02/18 11:10 AD On File at [facility]: N 02/02/18 11:10 Date Asked 02/13/25 02/13/25 14:42 AD Date Reviewed COLST On File at [facility] COLST Date Scanned Code Status Resuscitation Status DNR/DNI Insurance Coverage/Financial Issues Insurance: Medicare Part A & B - FINANCIAL ASST 100 - Care Team Visit Care Team Role Provider Type Stephani Quitnero NP MD [facility] STAFF PHYSICIAN Silke Bergman Primary Care Provider NURSE PRACTITIONER Juan Cardenas MD Emergency Provider [facility] STAFF PHYSICIAN Juan Perez MD Admit Provider [facility] STAFF PHYSICIAN Attending Provider Discharge Potential Discharge Needs: PT Evaluation, PCP F/U Appt and Surgical F/U Appt Anticipated Barriers to Discharge: None Identified Patient/Family Education Needs: Review discharge instructions, discuss Ask Me Three Transportation: Private vehicle (daughter, Chanel vs [facility]) Plan: Anticipate that Brooklyn will return home once medically stable. She will continue with her supports from HH,RN,PT,CHICKEN CUTTER with the addition of OT. She will f/u with her PCP and palliative care, and continue per her plan of care. Brooklyn will have a PT eval tomorrow to help determine her transportation needs. She does not believe her daughter will be able to pick her up, unless it is on the weekend. CM will continue to follow and to update the plan as needed. Social Determinants of Health Screening Will the Patient Participate in the Screening?: Unable to obtain PFSH All Active Problems (Updated 02/14/25 @ 14:57 by Sahara Bean NP) ACP (advance care planning) (Acute) Palliative care encounter (Acute) GI bleed (Acute) Low back pain (Chronic) Urethral prolapse (Acute) Closed compression fracture of lumbar vertebra (Acute) Adrenal mass (Acute) Calcification of brain (Acute) Mass of right lung (Chronic) Hemangioma (Acute) liver Gait abnormality (Acute) Depressed (Chronic) Anxiety (Chronic) Right carpal tunnel syndrome (Acute) Numbness of right hand (Acute) 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) B12 deficiency (Acute) Cerebral cavernoma (Acute 04/27/18) Medical History Afib Closed fracture of greater trochanter of right femur Senile osteoporosis Anxiety disorder Mild recurrent major depression Seizure disorder HLD (hyperlipidemia) Osteoarthritis GERD (gastroesophageal reflux disease) Hypertension Surgical History H/O cataract extraction S/P appendectomy H/O breast biopsy S/P wrist surgery Family History Father Hyperlipidemia Heart disease Sister Alcohol abuse Maternal Grandmother Family hx-stroke Maternal Grandfather Heart disease Social History Smoking/Tobacco Use Status: Former Tobacco Use tobacco type: cigarettes Quit Date: 09/13/69 Smoking risk assessment performed?: Yes Alcohol Intake: current Alcohol Intake frequency: holidays/special occasions only Drug use: Never Substance use type: does not use Housing: apartment Number of Children: 1 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
[2025-02-14] MEDS: Sucralfate 1 GM TAB PO ×2 (16:48→21:30)
[2025-02-14] MEDS: MAGNESIUM SULFATE 1 GM/100 ML BAG IV_INF (17:11)
--- NOTE | 2025-02-14 17:19 | PGE_ITS ---
Date of Service Date of service: 02/14/25 Time of Service: 17:19 Assessment and Plan Assessment and plan (1) GI bleed: Status: Acute Assessment and plan: Gastrointestinal Bleed ? Presumed NSAID-induced (likely upper source): * Patient presents with melena and symptomatic anemia (Hgb dropped from 9.8 in September 8.3 on 02/01 7.1 today) * History of recent high-dose ibuprofen use for back pain; no current signs of active upper GI distress but at risk for ulcer * Continue IV fluids * Transfuse PRBCs as needed for symptomatic anemia - 7.2 after one unit, 7.1 after 2 units - 2 units pending admin - check H&H at midnight * IV famotidine and pantoprazole initiated * Type and screen completed * Surgical consult - see note * Monitor hemoglobin and hemodynamic stability (2) Mass of right lung: Status: Chronic Assessment and plan: Workup pending; previously declined admission and treatment Currently pursuing diagnostic clarification but remains DNR/DNII * Respect patient?s goals of care * Palliative/supportive approach during admission * No Bx or imaging ordered * Social work/case management consult to assist with coordination * She is agreeable to supportive treatments including transfusion and hospitalization * Declines CPR, intubation, or aggressive oncologic intervention * Revisit goals of care if clinical status changes, palliative care consult (3) Low back pain: Status: Chronic Assessment and plan: Likely worsened by recent fall and subacute/chronic compression fractures * Discontinue NSAIDs due to GI bleed * Consider acetaminophen or lidocaine patch for pain control * PT consult as appropriate for mobility support during admission Subjective Subjective Patient reports: no new complaints, feels better, tolerating liquids well, tolerating a regular diet, voiding w/o difficulty, bowel movement and afebrile; denies diarrhea or vomiting Exam Narrative Exam Narrative: General: Well-developed, well-nourished elderly female. No acute distress noted. Appears pal Vital Signs: noted to be hemodynamically stable HEENT: Normocephalic, atraumatic. Normal facial features. Neck: Supple, no lymphadenopathy. Trachea midline. Respiratory: Normal respiratory effort. No rales, wheezes, or rhonchi. Cardiovascular: Regular rate and rhythm. Good radial pulses bilaterally. No murmurs, rubs, or gallops noted. Gastrointestinal: Abdomen soft, non-distended, non-tender. No rebound or guarding. Neurologic: Alert and oriented to person, place, and time. Normal speech and mentation. Cranial nerves II?XII grossly intact. No focal motor or sensory deficits observed. Extremities: No cyanosis, clubbing, or edema. Skin: Pale and cool to touch. No rashes or lesions noted. Psychiatric: Cooperative, appropriate affect. Objective Last Vital Signs Temp 36.2 C L 02/14/25 16:28 Pulse 87 02/14/25 16:28 Resp 16 02/14/25 16:28 BP 111/65 02/14/25 16:28 Pulse Ox 98 02/14/25 16:28 Laboratory Results - last 24 hr 02/13/25 02/13/25 02/14/25 14:47 19:53 05:56 WBC 7.86 RBC 2.95 L Hgb 7.2 L 7.1 L Hct 23.9 L 23.9 L MCV 81 MCH 24.1 L MCHC 29.7 L RDW 18.6 H Plt Count 168 MPV 10.0 Immature Gran % 0.4 Neutrophils % 68.3 Lymphocytes % 20.9 Monocytes % 8.3 Eosinophils % 1.7 Basophils % 0.4 Nucleated RBC % 0.0 Absolute Neutrophils 5.38 Absolute Lymphocytes 1.64 Absolute Monocytes 0.65 Absolute Eosinophils 0.13 Absolute Basophils 0.03 Sodium 142 Potassium 3.7 Chloride 109 H Carbon Dioxide 26.5 Anion Gap 6.5 BUN 22 H Creatinine 0.7 Est GFR (CKD-EPI 2020) 89.02 Glucose 98 Calcium 7.9 L Magnesium 1.6 L ABO/Rh O Positive Unit ABO/Rh Cancelled Blood Type Recheck Cancelled Antibody Screen NEGATIVE Crossmatch See Detail 02/14/25 14:50 WBC RBC Hgb 7.1 L Hct 23.3 L MCV MCH MCHC RDW Plt Count MPV Immature Gran % Neutrophils % Lymphocytes % Monocytes % Eosinophils % Basophils % Nucleated RBC % Absolute Neutrophils Absolute Lymphocytes Absolute Monocytes Absolute Eosinophils Absolute Basophils Sodium Potassium Chloride Carbon Dioxide Anion Gap BUN Creatinine Est GFR (CKD-EPI 2020) Glucose Calcium Magnesium ABO/Rh Unit ABO/Rh Blood Type Recheck Antibody Screen Crossmatch Time Spent with Patient Time Spent with Patient: 25-34 minutes Time was spent: preparing to see the patient(eg.review tests), ordering medications,tests, procedures, referring, communicating with other health healthcare account manager, indepentently interpreting results, counseling the patient and care coordination
[2025-02-14 20:08] LABS: Lab Add On Test DONE
[2025-02-14 20:15] LABS: Reticulocyte 1.5 % (0.5-2.4)
[2025-02-14 20:40] LABS: HGB 7.9 g/dL (11.2-15.7)
[2025-02-15 00:21] LABS: HCT 28.7 % (36.0-46.0); HGB 9.2 g/dL (11.2-15.7)
[2025-02-15 03:04] VITALS: BP 132/80; PULSE 84; RESP 18; TEMP 37.1; O2SAT 93
[2025-02-15] MEDS: Lidocaine 5% Patch 1 PATCH TP (04:50)
[2025-02-15] MEDS: Normal Saline 1,000 ML 75 ML IV (04:51)
[2025-02-15] MEDS: Acetaminophen 325 MG TAB PO (04:51)
[2025-02-15] MEDS: MORPHine 2 MG/ML SYR IVP ×2 (04:52→11:10)
[2025-02-15] MEDS: Normal Saline Flush 10 ML SYR IVP ×5 (04:52→20:02)
[2025-02-15 06:41] LABS: Abs Immature Grans 0.03 10^3/uL (0.0-0.06); Absolute Basophil Count 0.04 10^3/uL (0.0-0.2); Absolute Eosinophil Count 0.21 10^3/uL (0.0-0.7); Absolute Lymphocyte Count 1.84 10^3/uL (1.2-3.4); Absolute Monocyte Count 0.68 10^3/uL (0.1-0.8); Absolute Neutrophil Count 5.66 10^3/uL (1.2-6.7); Basophils % 0.5 %; Eosinophils % 2.5 %; HGB 9.1 g/dL (11.2-15.7); Immature Grans % 0.4 %; Lymphocytes % 21.7 %; MCHC 32.5 % (32.0-36.0); MCV 83 fL (80-95); MPV 9.8 fL (8.0-11.0); Neutrophils % 66.9 %; Platelet Count 150 10^3/uL (130-400); RBC 3.37 10^6/uL (3.93-5.22); RDW 17.4 % (11.7-14.6); RDW-SD 52.7 fL; WBC 8.46 10^3/uL (4.4-10.8)
[2025-02-15 07:06] LABS: Anion Gap 7.1 mmol/L (3-11); BUN 17 mg/dL (7-18); CO2 24.9 mmol/L (21.0-32.0); CREATININE 0.6 mg/dL (0.55-1.02); Calcium 7.6 mg/dL (8.5-10.1); Chloride 106 mmol/L (98-107); Estimated GFR 92.39 (mL/min/1.73m2); Glucose 97 mg/dL (74-106); Magnesium 1.7 mg/dL (1.8-2.4); Potassium 3.4 mmol/L (3.5-5.1); Sodium 138 mmol/L (136-145)
[2025-02-15 07:44] VITALS: BP 131/75; PULSE 94; RESP 15; TEMP 36.6; O2SAT 97
[2025-02-15] MEDS: Metoprolol 50 MG TAB PO ×2 (08:26→20:01)
[2025-02-15] MEDS: Cyanocobalamin 500 MCG TAB 1000 MCG PO (08:26)
[2025-02-15] MEDS: Sucralfate 1 GM TAB PO ×4 (08:26→22:15)
[2025-02-15] MEDS: Pantoprazole 40 MG VIAL IVP ×2 (08:27→20:01)
--- NOTE | 2025-02-15 09:13 | CMPROGNOTE_ITS ---
Date of service: 02/15/25 Time of Service: 09:16 Care Management Progress Note Progress Note Text Progress Note Text: Brooklyn was lying in bed and using her laptop, when CM arrived. She was very pleasant and willing to engage with CM. Per Brooklyn, PT was able to work with her this morning. Brooklyn states that she has HH PT but they have only been able to come, one time. Per PT, it is recommended that she now uses her 4WW inside of her home, for pain management and stability. Brooklyn states, she has difficulty with transportation; CM educated Brooklyn on the use of [facility], and the 6 rides offered monthly (CM explained the limitations to these rides). CM will continue to follow. Discharge Potential Discharge Needs: PT Evaluation and PCP F/U Appt Anticipated Barriers to Discharge: None Identified Patient/Family Education Needs: Review discharge instructions, discuss Ask Me Three Transportation: Private vehicle (daughter, Chanel vs [facility]) Plan: Anticipate that Brooklyn will return home once medically stable. She will continue with her supports from HH, RN, PT, MANUFACTURING SHIFT SUPERVISOR and addition of OT. She will f/u with her PCP and palliative care, and continue per her plan of care. PT recommends Brooklyn will need a resumption of HH PT meaning her transportation needs are to return [facility] by private car. She does not believe her daughter will be able to pick her up, unless it is on the weekend. CM will continue to follow and to update the plan as needed. Social Determinants of Health Screening Will the Patient Participate in the Screening?: Unable to obtain Anticipated HH Services Anticipated HH Services at Discharge [facility].
--- NOTE | 2025-02-15 10:16 | PT.INIE ---
PT Notes Visit Reasons: GI Bleed Physical Therapy Inpatient Initial Evaluation Date: 02/15/2025 Referring Doctor: [] Dr. Nathan PT Orders: PT CONSULT: Safety consult for discharge Precautions: Standard, fall risk, IV access left upper extremity Patient Profile/Admitting Diagnosis: Brooklyn is a 79-year-old female presented to the ED and diagnosed with GI bleed. Patient with recent fall on 02/02 resulting in finding of L1 and L3 fractures. Patient admitted to medical surgical unit for management and monitoring. Patient transfused 2 units packed red blood cells. Patient with known lung mass with probable mets to brain and adrenal glands. 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 Patient independent with ADLs, toileting, ambulation with cane or 4WW . Daughter assists with laundry and housecleaning, friend shops for her. Daughter visits twice a week. Equipment Owned/DME: 4WW, cane Subjective: Patient reports she spends most of her time in recliner at home and has snacks next to her. She reports her standing tolerance was limited at home due to pain and had frequent falls. Patient reports chair in her room is not very comfortable that is why she is in bed. Objective: [] General Observation: Thin female supine in bed watching program on her computer. IV infusing left upper extremity. Mental Status: Alert and oriented x 4, patient agreeable to participate in evaluation with some encouragement. Pain: Patient reports she is aware of the pain in her back but it is not limiting her ability since she has been laying in bed. ROM: [] Right Upper Extremity: WFL Left Upper Extremity: WFL Right Lower Extremity: WFL Left Lower Extremity: WFL Strength: [] Right Upper Extremity: Grossly 4/5 Left Upper Extremity: Grossly 4/5 BLE: Hips 3+/5 knee 3+/5 ankles 3+/5 Sensation intact BLE Bed Mobility/Transfers: [] Supine to sit independent Sit to supine independent Sit to stand SBA Stand to sit SBA Bed to chair SBA [id number] Gait: Ambulated 50 feet within room level surfaces including multiple turns [id number]. Patient demonstrated ability to manage 4WW and control speed. Balance: [] Static Sitting: Normal Dynamic Sitting: Good Static Standing: Good Dynamic Standing: Fair plus with 1 upper extremity support Special Tests: [] Mobility Limitations Standardized Measure [] [facility] AM-PAC 6 clicks Basic Mobility Inpatient Short Form: [] Raw Score: 21 CMS Score:28.97% Informed Consent/Education: Patient instructed in purpose of PT consult. Assessment: Patient is a 79 yo female who presents with clinical signs and symptoms consistent with current/admitting diagnoses that have resulted to mobility limitations, gait instability, generalized weakness, and impairment of motor control as demonstrated by the following impairment level findings: 1. Decreased strength to BLE major muscle groups 2. Impaired standing balance 3. Impaired functional activity tolerance 4. Pain in low back Impairments are contributing to the following functional limitations: 1. Inability to safely ambulate without assistive device 2. Increase completion time for mobility ADL performance 3. Increased fall risk Patient is assessed as a moderate complexity based on the following: History: 79-year-old female with impairment level findings, functional limitations, and past medical history as indicated above Examination: Demonstrable impairment in strength, balance, and mobility level with underlying impairments and functional limitations as documented above Presentation: Evolving/stable Decision Making: Moderate Goals: 1. Independent transfers with four-wheel walker 2. Independent ambulation with 4 wheeled walker >150 feet without reported increased pain in low back 3. Independent with home exercise program for lumbar stabilization Plan of Care/Treatment Plan: 1-2x/day, 7 days/week x 1 week. Plan of care has been reviewed with the MATERIALS HANDLING EQUIPMENT OPERATOR providing the service under Physical Therapy direction. Initiate Physical Therapy intervention for strengthening, bed mobility, transfers, gait, stairs, balance training, use of assistive device. DISCHARGE RECOMMENDATIONS:Home with HHPT when medically appropriate for discharge TREATMENT CODE/TIME: 87214,/ [id number] Thank you for the opportunity to participate in the care of this patient. Kacie Caballero PT [facility]
[2025-02-15 11:34] VITALS: BP 103/60; PULSE 68; RESP 15; TEMP 36.4; O2SAT 97
[2025-02-15] MEDS: Acetaminophen 500 MG TAB 1000 MG PO (14:18)
[2025-02-15] MEDS: Magic Mouthwash 119 ML BTL 10 ML PO (14:19)
[2025-02-15 15:51] VITALS: BP 109/58; PULSE 64; RESP 14; TEMP 36.2; O2SAT 99
--- NOTE | 2025-02-15 16:18 | PGE_ITS ---
Date of Service Date of service: 02/15/25 Time of Service: 16:18 Assessment and Plan Assessment and plan (1) GI bleed: Status: Acute Assessment and plan: Gastrointestinal Bleed ? Presumed NSAID-induced (likely upper source): Educated on restricting take this class of drugs * Patient presents with melena and symptomatic anemia (Hgb dropped from 9.8 in September 8.3 on 02/01 7.1 today) * No stools today * History of recent high-dose ibuprofen use for back pain; no current signs of active upper GI distress but at risk for ulcer * Scheduled APAP and ongoing lidocaine patch for pain management * Transition from IV opioid to oral PRN * Magic mouthwash PRN * Discontinue IV fluids * S/p Transfuse PRBCs (5 units) H&H is stable around 9 & 28 - will repeat in AM * PRBC as needed for symptomatic anemia or HGB< 7 * continue famotidine, pantoprazole and sucralfate * Type and screen completed - still valid if transfusion needed on 02/16/25 AM * Surgical consult - see note- no acute intervention * Consider discussion with PCP re: anemia work-up- did not want anything done as per discussion with bri * Contiue to monitor hemoglobin and hemodynamic stability (2) Mass of right lung: Status: Chronic Assessment and plan: As per previous notes Workup pending; previously declined admission and treatment Currently pursuing diagnostic clarification but remains DNR/DNII * Respect patient?s goals of care * Palliative/supportive approach during admission * No Bx or imaging ordered * Social work/case management consult to assist with coordination * She is agreeable to supportive treatments including transfusion and hospitalization * Declines CPR, intubation, or aggressive oncologic intervention * Palliative care consult completed on 02/14/25 (3) Low back pain: Status: Chronic Assessment and plan: Likely worsened by recent fall and subacute/chronic compression fractures * no further NSAIDs in the setting of GI bleed * Acetaminophen & lidocaine patch and PRN ultram for pain control * PT consult as appropriate for mobility support during admission Discussed with Dr. DESAI Subjective Subjective Patient reports: feels better, tolerating liquids well, voiding w/o difficulty, flatus and no bowel movement; denies diarrhea, vomiting, shortness of breath or fever Exam Narrative Exam Narrative: Alert an oriented X3 - off in day by 24 hours, no focal neurological deficits, moves all 4 ext., unlabored breathing , clear lungs, S1, S2 , no murmur, positive pulses o all 4 ext. , ABD is non-distended, soft, tender on palpation, Objective Last Vital Signs Temp 36.2 C L 02/15/25 15:51 Pulse 64 02/15/25 15:51 Resp 14 02/15/25 15:51 BP 109/58 L 02/15/25 15:51 Pulse Ox 99 02/15/25 15:51 Laboratory Results - last 24 hr 02/13/25 02/14/25 02/14/25 14:47 14:50 20:12 WBC RBC Hgb 7.9 L Hct 25.0 L MCV MCH MCHC RDW Plt Count MPV Reticulocyte % (Auto) 1.5 Immature Gran % Neutrophils % Lymphocytes % Monocytes % Eosinophils % Basophils % Nucleated RBC % Absolute Neutrophils Absolute Lymphocytes Absolute Monocytes Absolute Eosinophils Absolute Basophils Sodium Potassium Chloride Carbon Dioxide Anion Gap BUN Creatinine Est GFR (CKD-EPI 2020) Glucose Calcium Magnesium Add-On Test Request DONE ABO/Rh O Positive Unit ABO/Rh Cancelled Blood Type Recheck Cancelled Antibody Screen NEGATIVE Crossmatch See Detail 02/15/25 02/15/25 00:15 05:58 WBC 8.46 RBC 3.37 L Hgb 9.2 L 9.1 L Hct 28.7 L 28.0 L MCV 83 MCH 27.0 MCHC 32.5 D RDW 17.4 H Plt Count 150 MPV 9.8 Reticulocyte % (Auto) Immature Gran % 0.4 Neutrophils % 66.9 Lymphocytes % 21.7 Monocytes % 8.0 Eosinophils % 2.5 Basophils % 0.5 Nucleated RBC % 0.0 Absolute Neutrophils 5.66 Absolute Lymphocytes 1.84 Absolute Monocytes 0.68 Absolute Eosinophils 0.21 Absolute Basophils 0.04 Sodium 138 Potassium 3.4 L Chloride 106 Carbon Dioxide 24.9 Anion Gap 7.1 BUN 17 Creatinine 0.6 Est GFR (CKD-EPI 2020) 92.39 Glucose 97 Calcium 7.6 L Magnesium 1.7 L Add-On Test Request ABO/Rh Unit ABO/Rh Blood Type Recheck Antibody Screen Crossmatch Time Spent with Patient Time Spent with Patient: >50 minutes Time was spent: preparing to see the patient(eg.review tests), obtaining and/or reviewing separately otained hiistory, ordering medications,tests, procedures, referring, communicating with other health landcare facilitator, indepentently interpreting results, counseling the patient and care coordination
[2025-02-15] MEDS: MAGNESIUM SULFATE 2 GM/50 ML BAG IV_INF (17:15)
[2025-02-15 19:59] VITALS: BP 103/72; PULSE 98; RESP 20; TEMP 36.7; O2SAT 93
[2025-02-15] MEDS: Famotidine 20 MG TAB PO (20:01)
[2025-02-15 22:37] VITALS: BP 105/55; PULSE 80; RESP 19; TEMP 36.9; O2SAT 95
[2025-02-16] MEDS: Acetaminophen 500 MG TAB 1000 MG PO (02:02)
[2025-02-16 03:41] VITALS: BP 128/74; PULSE 94; RESP 20; TEMP 37.3; O2SAT 96
[2025-02-16 06:31] LABS: Abs Immature Grans 0.03 10^3/uL (0.0-0.06); Absolute Basophil Count 0.04 10^3/uL (0.0-0.2); Absolute Eosinophil Count 0.18 10^3/uL (0.0-0.7); Absolute Lymphocyte Count 1.32 10^3/uL (1.2-3.4); Absolute Monocyte Count 0.64 10^3/uL (0.1-0.8); Absolute Neutrophil Count 4.91 10^3/uL (1.2-6.7); Basophils % 0.6 %; Eosinophils % 2.5 %; HCT 27.5 % (36.0-46.0); HGB 8.9 g/dL (11.2-15.7); Immature Grans % 0.4 %; Lymphocytes % 18.5 %; MCH 27.4 pg (27.0-33.0); MCHC 32.4 % (32.0-36.0); MCV 85 fL (80-95); MPV 9.9 fL (8.0-11.0); Platelet Count 150 10^3/uL (130-400); RBC 3.25 10^6/uL (3.93-5.22); RDW 18.2 % (11.7-14.6); RDW-SD 55.7 fL; WBC 7.12 10^3/uL (4.4-10.8)
[2025-02-16 06:41] LABS: BUN 19 mg/dL (7-18); CREATININE 0.6 mg/dL (0.55-1.02); Calcium 7.9 mg/dL (8.5-10.1); Chloride 108 mmol/L (98-107); Estimated GFR 92.39 (mL/min/1.73m2); Glucose 96 mg/dL (74-106); Potassium 3.5 mmol/L (3.5-5.1); Sodium 143 mmol/L (136-145)
[2025-02-16 07:54] VITALS: BP 134/77; PULSE 89; RESP 14; TEMP 36.6; O2SAT 98
[2025-02-16] MEDS: Sucralfate 1 GM TAB PO (07:57)
[2025-02-16] MEDS: Famotidine 20 MG TAB PO (07:57)
[2025-02-16] MEDS: Normal Saline Flush 10 ML SYR IVP (07:57)
[2025-02-16] MEDS: Pantoprazole 40 MG VIAL IVP (07:57)
[2025-02-16] MEDS: Cyanocobalamin 500 MCG TAB 1000 MCG PO (07:58)
[2025-02-16] MEDS: Metoprolol 50 MG TAB PO (07:58)
[2025-02-16] MEDS: Lidocaine 5% Patch 1 PATCH TD (08:00)
--- NOTE | 2025-02-16 08:57 | PTTR_ITS ---
PT Notes Visit Reasons: GI Bleed Inpatient Physical Therapy Treatment Note [facility] Date: 02/16/2025 PRECAUTIONS:fall risk, IV access RUE SUBJECTIVE: Pt reports she feels better with the pain patch on her back OBJECTIVE: pt supine in bed HOB elevated 35degrees on computer agreeable to participate but will not leave her room ? PAIN: 09/22 low back with pain patch in place Therapeutic Activities (32291g[]): Direct one-on-one instruction in dynamic activities to improve functional performance. ?? -Provided skilled cues and instruction on performance and technique throughout. ? BED MOBILITY/TRANSFERS? Rolling L/R: Independent (I) Supine-sit: I ? Sit-supine: I? Sit-stand: I ? Stand-sit: I ? Bed-Chair: modified Independent with 4WW? Chair-bed: modified I with 4WW -chair to from [facility] mod I with 4WW Facilitated safe and correct performance of level surface ambulation covering a distance of 80 feet x 2 within room using use 4 wheeled walker with distant supervision . Did not report of any increased pain. Denied headache, chest pain, and lightheadedness throughout activity.Pt required 1 cue for management of 4WW in tight/narrow space to stay within frame of 4WW ASSESSMENT:?Pt tolerated session well. Pt declined to leave her room she also decline to trial ambulation with her personal cane. She is steady with her 4WW . Pt requires intermittent cues to lock brakes on 4WW but is steady despite not locking brakes. Pt declined to participate in lumbar stabilization exercises . PLAN: cont per POC until medically appropriate for d/c TREATMENT CODE/TIME: 56577/ [id number] DISCHARGE RECOMMENDATION: Home with resumption of HHPT
--- NOTE | 2025-02-16 11:15 | DSE_ITS ---
Date of service: 02/16/25 Time of Service: 11:16 DS: Diagnosis Discharge Diagnosis (1) GI bleed: Status: Acute (2) Mass of right lung: Status: Chronic (3) Low back pain: Status: Chronic Discharge Plan Disposition Patient Disposition: Home W/Hospice Services Condition: Improving Discharge Details Reason For Visit: GI Bleed Admit Date/Time: 02/13/25 15:47 Admit Provider: Juan Perez Attending Provider: Juan Perez Primary Care Provider: Silke Bergman Hospital Course Hospital Course: This 29-year-old female patient with past medical history of syncope, compression fractures, recently found lung, brain and adrenal masses presented to the ED on 02/13/2025 for evaluation of 2 morning episodes of black stool mixed with blood, shortness of breath on exertion weakness and lightheadedness as well as intermittent upper abdominal discomfort. The patient has been taking ibuprofen 600 mg every 5-6 hours for back pain over the last week. Workup showed hemoglobin of 7.1 from previous at 8.3 on 02/01/2025. The patient was admitted to the medical surgical floor by Dr. Rowell for GI bleed with blood transfusion pending surgical consult. During the stay the patient received total of 5 units of PRBC's. The patient was seen by surgery and the patient did not want any intervention at the time. H&H remained stable at 8.9 and 27.5. Patient educated on not taking NSAIDs. ASA held until bleeding stops or resumption by primary care practitioner. On the day of discharge patient was hemodynamically stable and will be discharged home with resumption of home health physical therapy in addition to occupational therapyas well as nursing for new medicine management. Electronic prescription for Pepcid, Protonix, sucralfate, iron, short course of Ultram and scheduled Tylenol for pain to her preferred pharmacy. CBC scheduled next week with follow-up by PCP. Discharge recommendations primary care practitioner: Discuss establishment to outpatient infusion for blood transfusion as needed Follow-up on CBC results Discuss anemia workup with patient Multiple masses found on CT on 01/30/2025 discuss further management with patient Consider palliative care referral Discussed with Dr. Nathan Home Meds and New Rx's Prescriptions: New famotidine 20 mg Tablet 20 mg PO BID Qty: 60 0RF sucralfate 1 gram Tablet 1 g PO AC & HS Qty: 120 0RF tramadol 50 mg Tablet 25 mg PO Q12H PRNQty: 7 0RF acetaminophen 500 mg Tablet 1,000 mg PO Q8H Qty: 30 0RF ferrous sulfate [Iron (ferrous sulfate)] 325 mg (65 mg iron) tablet 325 mg PO DAILY Qty: 30 0RF pantoprazole [Protonix] 40 mg tablet,delayed release (DR/EC) 40 mg PO BID Qty: 60 0RF Continued metoprolol tartrate 50 MG tablet 50 mg PO BID phenytoin sodium extended 100 mg capsule 100 mg PO QID Patient Comments: per PCP 10/04/24 lidocaine [Lidoderm] 5 % adhesive patch,medicated 1 patch topical DAILY Qty: 30 0RF Rx Instructions: leave on most painful area for up to 12 hrs cyanocobalamin (vitamin B-12) 1,000 mcg tablet 1,000 mcg PO DAILY Patient Comments: TAKE ONE TABLET BY MOUTH EVERY DAY Held aspirin [Adult Aspirin Regimen] 81 mg tablet,delayed release (DR/EC) 81 mg PO DAILY Hold Instructions: Resume on 02/22/25. As per PCP or once bleeding stops Patient Comments: pt reports taking twice daily Discontinued celecoxib [Celebrex] 200 mg capsule 200 mg PO DAILY Discharge Instructions Referrals: Silke Bergman [Primary Care Provider] - (Follow-up with PCP within 7 days of discharge) Activity:: Activity as Tolerated Equipment/Supplies:: Walker Diet:: As Tolerated Discharge Orders Discharge Orders: Discharge Order (Routine); Ordered 02/16/25 Ordered By: Tamar Zimmer Other Ambulatory Orders: Complete Blood Count w/Diff (Routine) Timeframe: 20250219 Facility: [facility] - Location: Laboratory Outpatient - [facility] Ordered By: Tamar Zimmer DS: Summary Time Spent with Patient providing and/or coordinating discharge services: Greater than 30 minutes Status at Discharge Functional status at discharge: uses cane/walker Overall status at discharge: patient is progressing back to baseline Mental Status: mental status grossly normal Speech and Movement: speech and movement normal Mood: congruent mood Affect: normal affect Quality:SDOH Health Related Social Needs: Health related social needs transportation insecurity (Z59.82) Health related social needs details Pt states, Sure I 'd love to have some help with transportation. I just take Taxis when I need to go somewhere. Exam Narrative Exam Narrative: Alert an oriented X3 -but has short-term memory impairment, no focal neurological deficits, moves all 4 ext., unlabored breathing , clear lungs, S1, S2 , no murmur, positive pulses o all 4 ext. , Abdomen is non-distended, soft, minimally tender on palpation, Psych Mental Status: mental status grossly normal Speech and Movement: speech and movement normal Mood: congruent mood Affect: normal affect DS: Data Vitals/I&O Vitals and I&O: Vital Signs Temperature 36.6 C 02/16/25 07:54 Temperature Source Tympanic 02/16/25 07:54 Pulse 89 02/16/25 07:54 Pulse Rhythm Irregular 02/13/25 17:17 Respiratory Rate 14 02/16/25 07:54 Respiratory Effort Normal 02/13/25 17:17 Respiratory Depth Normal 02/13/25 17:17 Respiratory Pattern Normal 02/13/25 17:17 Blood Pressure 134/77 02/16/25 07:54 Blood Pressure Mean 96 02/16/25 07:54 Pulse Oximetry 98 02/16/25 07:54 Oxygen Delivery Method Room Air 02/16/25 07:54 Oxygen Flow Rate 0 02/16/25 07:54 Pain Level 0 02/16/25 07:54 Intake & Output 02/15/25 02/15/25 02/16/25 11:59 23:59 11:59 Intake Total 250 / 1435 1185 / 1435 512 / 512 Balance 250 / 1435 1185 / 1435 512 / 512 Weight 58.6 kg 56.3 kg Intake: IV 935 / 935 Oral 250 / 500 250 / 500 512 / 512 Other: Urine Color Yellow Yellow Yellow Urine Odor Normal Normal Normal Comment pt was checked for incontinence, was dry at this time. pt incontinent, copious amount. stool in urine, unmeasurable Stool Size Moderate Moderate Stool Characteristics Liquid Liquid Black Black Bloody Bloody Data Completed and Pending Labs on day of discharge: Labs from last 24 hours 02/16/25 06:01 WBC 7.12 RBC 3.25 L Hgb 8.9 L Hct 27.5 L MCV 85 MCH 27.4 MCHC 32.4 RDW 18.2 H Plt Count 150 MPV 9.9 Immature Gran % 0.4 Neutrophils % 69.0 Lymphocytes % 18.5 Monocytes % 9.0 Eosinophils % 2.5 Basophils % 0.6 Nucleated RBC % 0.0 Absolute Neutrophils 4.91 Absolute Lymphocytes 1.32 Absolute Monocytes 0.64 Absolute Eosinophils 0.18 Absolute Basophils 0.04 Sodium 143 Potassium 3.5 Chloride 108 H Carbon Dioxide 27.0 Anion Gap 8.0 BUN 19 H Creatinine 0.6 Est GFR (CKD-EPI 2020) 92.39 Glucose 96 Calcium 7.9 L Magnesium 2.0 PFSH All Active Problems (Updated 02/14/25 @ 14:57 by Sahara Bean NP) ACP (advance care planning) (Acute) Palliative care encounter (Acute) GI bleed (Acute) Low back pain (Chronic) Urethral prolapse (Acute) Closed compression fracture of lumbar vertebra (Acute) Adrenal mass (Acute) Calcification of brain (Acute) Mass of right lung (Chronic) Hemangioma (Acute) liver Gait abnormality (Acute) Depressed (Chronic) Anxiety (Chronic) Right carpal tunnel syndrome (Acute) Numbness of right hand (Acute) 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) B12 deficiency (Acute) Cerebral cavernoma (Acute 04/27/18) Medical History Afib Closed fracture of greater trochanter of right femur Senile osteoporosis Anxiety disorder Mild recurrent major depression Seizure disorder HLD (hyperlipidemia) Osteoarthritis GERD (gastroesophageal reflux disease) Hypertension Surgical History H/O cataract extraction S/P appendectomy H/O breast biopsy S/P wrist surgery Family History Father Hyperlipidemia Heart disease Sister Alcohol abuse Maternal Grandmother Family hx-stroke Maternal Grandfather Heart disease Social History Smoking/Tobacco Use Status: Former Tobacco Use tobacco type: cigarettes Quit Date: 09/13/69 Smoking risk assessment performed?: Yes Alcohol Intake: current Alcohol Intake frequency: holidays/special occasions only Drug use: Never Substance use type: does not use Housing: apartment Number of Children: 1 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 Current gender 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 Time Spent with Patient Time Spent with Patient: 70-84 minutes4 Time was spent: preparing to see the patient(eg.review tests), obtaining and/or reviewing separately otained hiistory, ordering medications,tests, procedures, referring, communicating with other health acute care physical therapist, indepentently interpreting results, counseling the patient and care coordination
--- NOTE | 2025-02-16 11:44 | PDOC.HHF2F_ITS ---
Home Health Referral Home Health Orders Clinical synopsis of why skilled professionals are needed: This 29-year-old female patient with past medical history of syncope, compression fractures, recently found lung, brain and adrenal masses presented to the ED on 02/13/2025 for evaluation of 2 morning episodes of black stool mixed with blood, shortness of breath on exertion weakness and lightheadedness as well as intermittent upper abdominal discomfort. The patient has been taking ibuprofen 600 mg every 5-6 hours for back pain over the last week. Workup showed hemoglobin of 7.1 from previous at 8.3 on 02/01/2025. The patient was admitted to the medical surgical floor by Dr. Rowell for GI bleed with blood t ransfusion pending surgical consult. During the stay the patient received total of 5 units of PRBC's. The patient was seen by surgery and the patient did not want any intervention at the time. H&H remained stable at 8.9 and 27.5. Patient educated on not taking NSAIDs. ASA held until bleeding stops or resumption by primary care practitioner. On the day of discharge patient was hemodynamically stable and will be discharged home with resumption of home health physical therapy in addition to occupational therapyas well as nursing for new medicine management. Electronic prescription for Pepcid, Protonix, sucralfate, iron, short course of Ultram and scheduled Tylenol for pain to her preferred pharmacy. CBC scheduled next week with follow-up by PCP. Discharge recommendations primary care practitioner: Discuss establishment to outpatient infusion for blood transfusion as needed Follow-up on CBC results Discuss anemia workup with patient Multiple masses found on CT on 01/30/2025 discuss further management with patient Consider palliative care referral Discussed with Dr. Nathan Registered Nurse: Check all that apply Instruct on new or changed medication(s)/assess compliance: Ordered Assess for exacerbation of medical condition, instruct patient/caregivers on signs and symptoms to report for early detection: Ordered Physical Therapist: Check all that apply Increase strength & endurance for safe mobility at home: Ordered To design/establish home maintenance program: Ordered Fall reduction therapy program for patient with history of frequent falls: Ordered Home safety evaluation and teaching/gait training including stair management (if applicable): Ordered Occupational Therapist: Evaluate and treat for patient unable to perform ADL/IADL/self-care: Ordered Upper extremity strengthening, range and motion: Ordered Home Bound Status Requires the aid of supportive device (check all that apply): Walker Describe why leaving home would require a considerable and taxing effort: Requires frequent rest periods Encounter Date and Reason: I certify that a FTF encounter for this patient was performed on February 16, 2025 and that such encounter was related to the primary reason the patient requires home health services. The encounter was conducted in the following manner: * By me as the certifying physician, OPERATIONS AND MAINTENANCE MANAGER, PA or * By an inpatient physician, OPERATIONS AND MAINTENANCE MANAGER or PA during an inpatient stay who communicated findings to me, Certification And Authentication I certify that I composed the above information based on my clinical judgment relating to this patient's medical condition and, if applicable, clinical findings communicated to me by the NPP or inpatient physician who performed the FTF encounter. Name of Provider that will be monitoring home health services: Silke Bergman
--- NOTE | 2025-02-16 12:05 | PCPN_ITS ---
Date of service: 02/16/25 Time of Service: 12:05 Assessment and Plan Assessment and plan (1) GI bleed: Status: Acute Assessment and plan: unknown source, presumed NSAID induced; see surgical consult note received PRBC during this admission. H&H stable. Continues to have dark/bloody stools. (2) Low back pain: Status: Chronic Assessment and plan: Has been getting rare doses of MS IVP while inpatient. Tramadol ordered but she did not get any while here. She is discharged home with a small Rx for Tramadol. Palliative to f/u on Wednesday with how she is doing, how her pain management is and to set up close f/u. (3) Closed compression fracture of lumbar vertebra: Status: Acute (4) Adrenal mass: Status: Acute (5) Calcification of brain: Status: Acute (6) Mass of right lung: Status: Chronic Assessment and plan: Lung, brain, thyroid and adrenal masses noted on imaging. She is not interested in cancer treatment. She does not think she wants biopsy although her daughter does. 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 multiple home falls (8) Palliative care encounter: Status: Acute (9) ACP (advance care planning): Status: Acute Assessment and plan: [place] likely has new metastatic disease. As above, she never plans to do cancer treatment. She does not really think she wants a Bx. Thinking about going to [facility] is exhausting to her. She does not like [facility]. Reviewed what Palliative can offer. Reviewed what transition to Hospice would entail and how the service can benefit her. She will need to sort out who will be her caregiver. She is hoping to remain in her home. She has [facility] and COLST in place. Palliative to follow closely after discharge. Subjective Subjective Interval history since last seen: [place] was seen for f/u in her hospital room prior to discharge home. She was seen earlier on this admission by Sahara Bean NP. She has been clear that she would not want to undergo cancer treatment. She recently completed COLST that states DNR/DNI. [place] has had some pain. She has verbalized some concern about taking opioids. She prefers not to use morphine. She has tramadol ordered but she has not taken any here. At the time of her visit, she was getting dressed for discharge. She maintains that she does not ever plan to undergo cancer treatment. In regard to having a Bx, she states, I am trying to talk my daughter out of that. Discussed what the goal of having a Bx would be for her. She does not really feel like she needs to know what type of cancer she has. Her daughter wanted her to have Bx to find out what stage she was at. Reviewed that metastatic cancer is stage IV and not curable. Reviewed what palliative can offer. Also discussed hospice as an option if she decided not to pursue any more work up or treatment. She lives alone. Her daughter, Chanel promised her that she will never let her go into a intermediate. She also has a friend that lives at [facility] [address] that is a support person for her. Chanel lives in [place], [place]. Exam Narrative Exam Narrative: General: 79 y/o, chronically ill appearing female, lying in hospital bed. She is awake, alert, oriented, engages in the visit. She is pleasant. HEENT: hearing grossly WNL, MMM, normocephalic, atraumatic Respiratory: respirations appear even and unlabored. She speaks full sentences w/o SOB, no audible wheeze, no cough Ext: moves all 4 extremities freely. Objective Last Vital Signs Temp 36.6 C 02/16/25 07:54 Pulse 89 02/16/25 07:54 Resp 14 02/16/25 07:54 BP 134/77 02/16/25 07:54 Pulse Ox 98 02/16/25 07:54 Laboratory Results - last 24 hr 02/16/25 06:01 WBC 7.12 RBC 3.25 L Hgb 8.9 L Hct 27.5 L MCV 85 MCH 27.4 MCHC 32.4 RDW 18.2 H Plt Count 150 MPV 9.9 Immature Gran % 0.4 Neutrophils % 69.0 Lymphocytes % 18.5 Monocytes % 9.0 Eosinophils % 2.5 Basophils % 0.6 Nucleated RBC % 0.0 Absolute Neutrophils 4.91 Absolute Lymphocytes 1.32 Absolute Monocytes 0.64 Absolute Eosinophils 0.18 Absolute Basophils 0.04 Sodium 143 Potassium 3.5 Chloride 108 H Carbon Dioxide 27.0 Anion Gap 8.0 BUN 19 H Creatinine 0.6 Est GFR (CKD-EPI 2020) 92.39 Glucose 96 Calcium 7.9 L Magnesium 2.0
== END 2025-02-16 13:15 | disposition hospice, home (50) ==
LOC: ER 15:53 → MS 17:00
PROVIDERS: Nurse Practitioner Family; Admitting Provider Hospitalist; Emergency Provider Emergency Medicine; PCP Nurse Practitioner Family; Responsible Provider Nurse Practitioner Acute Care; Visit Provider Hospitalist
DX: K92.1 Melena (principal); M54.50 Low back pain, unspecified; R91.8 Other nonspecific abnormal finding of lung field; E27.8 Other specified disorders of adrenal gland; G93.89 Other specified disorders of brain; R26.9 Unspecified abnormalities of gait and mobility; R06.02 Shortness of breath; R42 Dizziness and giddiness; R53.1 Weakness; M48.56XA Collapsed vertebra, not elsewhere classified, lumbar region, initial encounter for fracture; Z66 Do not resuscitate; D50.0 Iron deficiency anemia secondary to blood loss (chronic); D18.09 Hemangioma of other sites; R20.2 Paresthesia of skin; F41.9 Anxiety disorder, unspecified; F32.A Depression, unspecified; E53.8 Deficiency of other specified B group vitamins; I48.91 Unspecified atrial fibrillation; G40.909 Epilepsy, unspecified, not intractable, without status epilepticus; K21.9 Gastro-esophageal reflux disease without esophagitis; E78.5 Hyperlipidemia, unspecified; I10 Essential (primary) hypertension; Z79.899 Other long term (current) drug therapy
CPT/HCPCS: 00123; 36415; 36430; 80048; 85027; 86850; 86900; 86901; 86920; 96365; 96366; 96374; 96375; 96376; 97162; 97530; 99222; 99285; 83735; 85014; 85018; 85025; 85045; 99232; 99233; 99239; G0378; J2270; J2470; J3475; J3490; P9016

== ENCOUNTER 2025-03-06 14:44 | Outpatient (REF) | payer MEDICARE, SELFPAY ==
[2025-03-06 15:57] LABS: HCT 23.6 % (36.0-46.0); HGB 7.3 g/dL (11.2-15.7); MCH 25.4 pg (27.0-33.0); MCHC 30.9 % (32.0-36.0); MCV 82 fL (80-95); MPV 10.4 fL (8.0-11.0); Platelet Count 213 10^3/uL (130-400); RBC 2.87 10^6/uL (3.93-5.22); RDW 18.3 % (11.7-14.6); RDW-SD 55.4 fL; WBC 13.09 10^3/uL (4.4-10.8)
== END 2025-03-06 14:45 | disposition home or self-care (01) ==
LOC: NCHCN 14:44
PROVIDERS: PCP Family Medicine; Visit Provider Family Medicine
DX: Z09 Encounter for follow-up examination after completed treatment for conditions other than malignant neoplasm (principal); Z87.19 Personal history of other diseases of the digestive system
CPT/HCPCS: 85027

== ENCOUNTER 2025-03-14 19:28 | Outpatient (REF) | payer MEDICARE, SELFPAY ==
[2025-03-14 16:47] LABS: Abs Immature Grans 0.06 10^3/uL (0.0-0.06); HCT 24.5 % (36.0-46.0); HGB 7.4 g/dL (11.2-15.7); Immature Grans % 0.5 %; MCH 24.2 pg (27.0-33.0); MCHC 30.2 % (32.0-36.0); MCV 80 fL (80-95); MPV 9.9 fL (8.0-11.0); Platelet Count 201 10^3/uL (130-400); RBC 3.06 10^6/uL (3.93-5.22); RDW 18.6 % (11.7-14.6); RDW-SD 54.4 fL; WBC 10.99 10^3/uL (4.4-10.8)
== END 2025-03-14 19:29 | disposition home or self-care (01) ==
LOC: NCHCN 19:28
PROVIDERS: PCP Family Medicine; Visit Provider Family Medicine
DX: E53.8 Deficiency of other specified B group vitamins (principal); R63.8 Other symptoms and signs concerning food and fluid intake; Z79.1 Long term (current) use of non-steroidal anti-inflammatories (NSAID)
CPT/HCPCS: 85025

== ENCOUNTER 2025-03-15 17:02 | Observation (INO) | payer MEDICARE, SELFPAY ==
[2025-03-15] VITALS (31 sets, daily range): BP systolic 90–134; BP diastolic 46–72; PULSE 85–107; RESP 16–30; TEMP 36.1–36.9; O2SAT 87–100
--- NOTE | 2025-03-15 | DI.RAD_ITS ---
Exam(s) XR PORTABLE CHEST AP EXAM: XR PORTABLE CHEST AP CLINICAL HISTORY: hypoxia. TECHNIQUE: 2D digital imaging was performed. COMPARISON: CR XR PORTABLE CHEST AP from 04/21/2024 FINDINGS: Single AP portable view. Mild cardiomegaly again noted. The mediastinum is not widened. Left lung is clear. There is subsegmental platelike atelectasis in the lower right lung field. No pleural effusions. No pulmonary edema. No pneumothorax. IMPRESSION: There is subsegmental platelike atelectasis in the lower right lung field. Mild cardiomegaly. No pulmonary edema. DATA REPOSITORY: RADIATION DOSE DELIVERED:
--- NOTE | 2025-03-15 17:00 | RT.EKG_ITS ---
APPROVED REPORT Exam: Resting ECG Reason for Exam: Fatigue Patient Location: E HR:96 bpm ECG Measurements Heart Rate 96 AXIS TX [id number] P [id number] QRSd 91 QRS 55 QT 413 T -83 QTc 522 Conclusion Atrial fibrillation 96 TWI III, ACF, V3, V4, V5 all new from prior
[2025-03-15 17:56] LABS: Abs Immature Grans 0.07 10^3/uL (0.0-0.06); HCT 24.9 % (36.0-46.0); HGB 7.6 g/dL (11.2-15.7); Immature Grans % 0.6 %; MCH 24.7 pg (27.0-33.0); MCHC 30.5 % (32.0-36.0); MCV 81 fL (80-95); MPV 9.5 fL (8.0-11.0); Platelet Count 184 10^3/uL (130-400); RBC 3.08 10^6/uL (3.93-5.22); RDW 19.0 % (11.7-14.6); RDW-SD 55.8 fL; WBC 12.55 10^3/uL (4.4-10.8)
[2025-03-15 18:14] LABS: ALT 15 U/L (14-59); AST 20 U/L (15-37); Albumin 2.8 g/dL (3.4-5.0); Alkaline Phosphatase 115 U/L (46-116); Anion Gap 10.3 mmol/L (3-11); BUN 17 mg/dL (7-18); Bilirubin, Total 0.9 mg/dL (0.2-1.0); CO2 27.7 mmol/L (21.0-32.0); Calcium 8.0 mg/dL (8.5-10.1); Chloride 101 mmol/L (98-107); Estimated GFR 75.84 (mL/min/1.73m2); Glucose 95 mg/dL (74-106); Magnesium 1.6 mg/dL (1.8-2.4); Potassium 3.2 mmol/L (3.5-5.1); Sodium 139 mmol/L (136-145); Total Protein 7.4 g/dL (6.4-8.2); Troponin I 18 ng/L (<or=51)
--- NOTE | 2025-03-15 18:20 | W.ED.GENAD ---
Discharge Plan Disposition Patient Disposition: Admit to [facility] Condition: Stable Discharge Details Clinical Impression: Anemia, Hypoxia Primary Care Provider: Letty Smith ED Provider: Virgie Cabrera Home Meds and New Rx's Prescriptions: No Action aspirin [Adult Aspirin Regimen] 81 mg tablet,delayed release (DR/EC) 81 mg PO DAILY Patient Comments: pt reports taking twice daily metoprolol tartrate 50 MG tablet 50 mg PO BID phenytoin sodium extended 100 mg capsule 100 mg PO QID Patient Comments: per PCP 10/04/24 lidocaine [Lidoderm] 5 % adhesive patch,medicated 1 patch topical DAILY Qty: 30 0RF Rx Instructions: leave on most painful area for up to 12 hrs cyanocobalamin (vitamin B-12) 1,000 mcg tablet 1,000 mcg PO DAILY Patient Comments: TAKE ONE TABLET BY MOUTH EVERY DAY famotidine 20 mg Tablet 20 mg PO BID Qty: 60 0RF sucralfate 1 gram Tablet 1 g PO AC & HS Qty: 120 0RF tramadol 50 mg Tablet 25 mg PO Q12H PRNQty: 7 0RF acetaminophen 500 mg Tablet 1,000 mg PO Q8H Qty: 30 0RF ferrous sulfate [Iron (ferrous sulfate)] 325 mg (65 mg iron) tablet 325 mg PO DAILY Qty: 30 0RF pantoprazole [Protonix] 40 mg tablet,delayed release (DR/EC) 40 mg PO BID Qty: 60 0RF HPI General Date/Time Provider Initiated Documentation: 03/15/25 17:10. Limitations to Documentation: no limitations. Information obtained by: patient and old records reviewed. HPI Narrative: 79-year-old female with recent diagnosis of diffuse metastatic disease, presents via EMS at the encouragement of home health for increased weakness and not feeling well. Patient has been seen by palliative recently, unfortunately she has not been able to get into hospice for placement at a [facility] because of payer and support issues however there has been conversation about setting up medical assisted and the patient is still interested in pursuing this. She states that she feels pretty stupid for being here and that she does not want to waste anyone's time. She says that they encouraged her to come. She reports that she feels short of breath than pretty exhausted. Denies any chest pain, fever or chills, poor oral intake and says that she has a pretty bad appetite. Related Data Home Medications ?Medication ?Instructions ?Recorded ?Confirmed metoprolol tartrate 50 mg tablet 50 mg PO BID 11/29/17 03/15/25 aspirin 81 mg tablet,delayed 81 mg PO DAILY 04/13/23 03/15/25 release (Adult Aspirin Regimen) Held on 02/16/25. Instructions: Resume on 02/22/25. As per PCP or once bleeding stops lidocaine 5 % topical patch 1 patch topical DAILY #30 ea 02/02/25 03/15/25 (Lidoderm) phenytoin sodium extended 100 mg 100 mg PO QID 02/13/25 03/15/25 capsule cyanocobalamin (vitamin B-12) 1,000 mcg PO DAILY 02/14/25 03/15/25 1,000 mcg tablet acetaminophen 500 mg tablet 1,000 mg (2 x 500 mg) PO Q8H #30 02/16/25 03/15/25 tabs famotidine 20 mg tablet 20 mg PO BID #60 tabs 02/16/25 03/15/25 ferrous sulfate 325 mg (65 mg 325 mg PO DAILY #30 tabs 02/16/25 03/15/25 iron) tablet (Iron (ferrous sulfate)) pantoprazole 40 mg tablet,delayed 40 mg PO BID #60 tabs 02/16/25 03/15/25 release (Protonix) sucralfate 1 gram tablet 1 g PO AC & HS #120 tabs 02/16/25 03/15/25 tramadol 50 mg tablet 25 mg (1/2 x 50 mg) PO Q12H PRN #7 02/16/25 03/15/25 tabs Previous Rx's ?Medication ?Instructions ?Recorded lidocaine 5 % topical patch 1 patch topical DAILY #30 ea 02/02/25 (Lidoderm) acetaminophen 500 mg tablet 1,000 mg (2 x 500 mg) PO Q8H #30 02/16/25 tabs famotidine 20 mg tablet 20 mg PO BID #60 tabs 02/16/25 ferrous sulfate 325 mg (65 mg 325 mg PO DAILY #30 tabs 02/16/25 iron) tablet (Iron (ferrous sulfate)) pantoprazole 40 mg tablet,delayed 40 mg PO BID #60 tabs 02/16/25 release (Protonix) sucralfate 1 gram tablet 1 g PO AC & HS #120 tabs 02/16/25 tramadol 50 mg tablet 25 mg (1/2 x 50 mg) PO Q12H PRN #7 02/16/25 tabs Allergies Allergy/AdvReac Type Severity Reaction Status Date / Time Penicillins Allergy Intermediate Hives Verified 02/02/25 16:43 cat dander Allergy Mild Hives Verified 02/02/25 16:43 General Stated Complaint: GenMedical RADHA: 3 Exam Narrative Exam Narrative: Review of Systems: All systems reviewed & are unremarkable except as noted in HPI and below frail, ill appearing NCAT RRR mild tachypnea, hypoxic to 85% on RA Appropriate mood and affect Course Vital Signs Vital signs: Vital Signs Temperature 36.3 C L 03/15/25 17:02 Pulse 98 H 03/15/25 17:02 Respiratory Rate 30 H 03/15/25 17:02 Blood Pressure 134/59 L 03/15/25 17:02 Pulse Oximetry 93 03/15/25 17:02 Temperature 36.3 C L 03/15/25 17:10 Temperature Source Temporal Artery Scan 03/15/25 17:02 Pulse 100 H 03/15/25 17:50 Pulse 96 H 03/15/25 17:50 Respiratory Rate 22 03/15/25 17:50 Blood Pressure 108/48 L 03/15/25 17:47 Blood Pressure Mean 66 03/15/25 17:47 Blood Pressure Position Sitting 03/15/25 17:02 Pulse Oximetry 87 L 03/15/25 17:50 Oxygen Delivery Method Nasal Cannula 03/15/25 17:10 Oxygen Flow Rate 2 03/15/25 17:10 Pain Level 0 03/15/25 17:10 Lab/Test Results Lab/Test Results: Laboratory Tests Range/Units 03/15/25 17:47 WBC (4.4-10.8) 10^3/uL 12.55 H RBC (3.93-5.22) 10^6/uL 3.08 L Hgb (11.2-15.7) g/dL 7.6 L Hct (36.0-46.0) % 24.9 L MCV (80-95) fL 81 MCH (27.0-33.0) pg 24.7 L MCHC (32.0-36.0) % 30.5 L RDW (11.7-14.6) % 19.0 H Plt Count (130-400) 10^3/uL 184 MPV (8.0-11.0) fL 9.5 Immature Gran % % 0.6 Neutrophils % % 78.0 Lymphocytes % % 14.3 Monocytes % % 6.7 Eosinophils % % 0.3 Basophils % % 0.1 Nucleated RBC % (0.0-0.3) % 0.2 Absolute Neutrophils (1.2-6.7) 10^3/uL 9.79 H Absolute Lymphocytes (1.2-3.4) 10^3/uL 1.79 Absolute Monocytes (0.1-0.8) 10^3/uL 0.84 H Absolute Eosinophils (0.0-0.7) 10^3/uL 0.04 Absolute Basophils (0.0-0.2) 10^3/uL 0.01 Sodium (136-145) mmol/L 139 Potassium (3.5-5.1) mmol/L 3.2 L Chloride (98-107) mmol/L 101 Carbon Dioxide (21.0-32.0) mmol/L 27.7 Anion Gap (3-11) mmol/L 10.3 BUN (7-18) mg/dL 17 Creatinine (0.55-1.02) mg/dL 0.8 Est GFR (CKD-EPI 2020) (mL/min/1.73m2) 75.84 Glucose (74-106) mg/dL 95 Calcium (8.5-10.1) mg/dL 8.0 L Magnesium (1.8-2.4) mg/dL 1.6 L Total Bilirubin (0.2-1.0) mg/dL 0.9 AST (15-37) U/L 20 ALT (14-59) U/L 15 Alkaline Phosphatase (46-116) U/L 115 Troponin I (<or=51) ng/L 18 Total Protein (6.4-8.2) g/dL 7.4 Albumin (3.4-5.0) g/dL 2.8 L Medical Decision Making Urgent evaluation of fatigue. Patient has known metastatic disease and is not currently on treatment and is in discussion palliative care on how best to end her life with dignity and comfort. Patient unfortunately is not a candidate to be put on hospice due to logistical reasons. She is DNR and we had a long discussion regarding her goals of care today. She states that she feels like she is wasting everyone's time being here, but that she does not feel well and if there is anything we can do to make her feel better she would be happy to do that. She is not interested in invasive testing and would like to go back home. Her EKG was obtained and independently interpreted, she does have some concerning T wave inversions that are new from prior. She is not having any chest pain, this could be demand ischemia from severe anemia which was noted on lab work obtained by home health yesterday. Troponin was not elevated. She is persistently hypoxic requiring oxygen and unfortunately she does not have oxygen set up at home right now. Because of this I feel she does need to be admitted to the hospital. Her potassium and magnesium were replaced via IV infusion. Given her anemia and symptoms, an additional blood transfusion was given to the patient as I do feel that this would help her symptoms. Patient is amenable to this and understands indication for hospitalization and will stay in the hospital to receive oxygen therapy. Discussed with the hospitalist who agrees to admit. Quality:SDOH Health Related Social Needs: Health related social needs transpo insecurity Health related social needs details Pt states, Sure I'd love to have some help with transportation. I just take Taxis when I need to go somewhere. 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) B12 deficiency (Acute) Cerebral cavernoma (Acute 04/27/18) Medical History Afib Closed fracture of greater trochanter of right femur Senile osteoporosis Anxiety disorder Mild recurrent major depression Seizure disorder HLD (hyperlipidemia) Osteoarthritis GERD (gastroesophageal reflux disease) Hypertension Surgical History H/O cataract extraction S/P appendectomy H/O breast biopsy S/P wrist surgery Family History Father Hyperlipidemia Heart disease Sister Alcohol abuse Maternal Grandmother Family hx-stroke Maternal Grandfather Heart disease Social History Smoking/Tobacco Use Status: Former Tobacco Use tobacco type: cigarettes Quit Date: 09/13/69 Smoking risk assessment performed?: Yes Alcohol Intake: current Alcohol Intake frequency: holidays/special occasions only Drug use: Never Substance use type: does not use Housing: apartment Number of Children: 1 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
[2025-03-15] MEDS: MAGNESIUM SULFATE 2 GM/50 ML BAG IVINF (18:36)
[2025-03-15] MEDS: POTASSIUM CHLORIDE 10 MEQ/100 ML BAG 100 MEQ IV_INF (18:36)
--- NOTE | 2025-03-15 20:26 | W.PC.ACHO ---
Registration Status: REG ER Primary Language: Preferred Language: Serbian ED Information & Data Chief Complaint GenMedical 03/15/25 18:20 Triage Note patient brought in via EMS 03/15/25 17:02 for increased weakness and feeling off per home health report. patient non compliant with medications according to home health. BGL in route 129, on 2L NC that is new to patient, SOB with exertion. decreased PO intake Medical / Surgical History (Last Reviewed 02/14/25 @ 14:51 by Sahara Bean NP) ACP (advance care planning) Palliative care encounter Afib Closed fracture of greater trochanter of right femur Senile osteoporosis Anxiety disorder Mild recurrent major depression Seizure disorder HLD (hyperlipidemia) Osteoarthritis GERD (gastroesophageal reflux disease) Hypertension (Last Reviewed 02/14/25 @ 14:51 by Sahara Bean NP) H/O cataract extraction S/P appendectomy H/O breast biopsy S/P wrist surgery Most Recent Vital Signs Temperature 36.8 C 03/15/25 20:00 Temperature Source Temporal Artery Scan 03/15/25 17:02 Pulse 96 H 03/15/25 20:00 Pulse 92 H 03/15/25 18:40 Respiratory Rate 18 03/15/25 20:00 Respiratory Effort Normal 03/15/25 18:55 Respiratory Depth Normal 03/15/25 18:55 Respiratory Pattern Normal 03/15/25 18:55 Blood Pressure 116/67 03/15/25 20:00 Blood Pressure Mean 74 03/15/25 18:30 Blood Pressure Position Sitting 03/15/25 17:02 Pulse Oximetry 100 03/15/25 20:00 Oxygen Delivery Method Nasal Cannula 03/15/25 20:00 Oxygen Flow Rate 2 03/15/25 20:00 Pain Level 0 03/15/25 17:10 Allergies Penicillins Allergy (Intermediate, Verified 02/02/25 16:43) Hives cat dander Allergy (Mild, Verified 02/02/25 16:43) Hives Precautions Isolation Standard precaution 03/15/25 17:11 IV IV Catheter Type [Right Saline Lock Forearm] IV Catheter Type [Left Diffusix Antecubital] IV Catheter Gauge [Right 20 Forearm] IV Catheter Gauge [Left 20 Antecubital] Diet Orders Category Date Time Status Regular/Normal [DIET] Nutrition 03/15/25 Dinner Active Diagnostics 03/15/25 Range/Units 17:47 WBC 12.55 H (4.4-10.8) 10^3/uL RBC 3.08 L (3.93-5.22) 10^6/uL Hgb 7.6 L (11.2-15.7) g/dL Hct 24.9 L (36.0-46.0) % MCV 81 (80-95) fL MCH 24.7 L (27.0-33.0) pg MCHC 30.5 L (32.0-36.0) % RDW 19.0 H (11.7-14.6) % Plt Count 184 (130-400) 10^3/uL MPV 9.5 (8.0-11.0) fL Immature Gran % 0.6 % Neutrophils % 78.0 % Lymphocytes % 14.3 % Monocytes % 6.7 % Eosinophils % 0.3 % Basophils % 0.1 % Nucleated RBC % 0.2 (0.0-0.3) % Absolute Neutrophils 9.79 H (1.2-6.7) 10^3/uL Absolute Lymphocytes 1.79 (1.2-3.4) 10^3/uL Absolute Monocytes 0.84 H (0.1-0.8) 10^3/uL Absolute Eosinophils 0.04 (0.0-0.7) 10^3/uL Absolute Basophils 0.01 (0.0-0.2) 10^3/uL Sodium 139 (136-145) mmol/L Potassium 3.2 L (3.5-5.1) mmol/L Chloride 101 (98-107) mmol/L Carbon Dioxide 27.7 (21.0-32.0) mmol/L Anion Gap 10.3 (3-11) mmol/L BUN 17 (7-18) mg/dL Creatinine 0.8 (0.55-1.02) mg/dL Est GFR (CKD-EPI 2020) 75.84 (mL/min/1.73m2) Glucose 95 (74-106) mg/dL Calcium 8.0 L (8.5-10.1) mg/dL Magnesium 1.6 L (1.8-2.4) mg/dL Total Bilirubin 0.9 (0.2-1.0) mg/dL AST 20 (15-37) U/L ALT 15 (14-59) U/L Alkaline Phosphatase 115 (46-116) U/L Troponin I 18 (<or=51) ng/L Total Protein 7.4 (6.4-8.2) g/dL Albumin 2.8 L (3.4-5.0) g/dL ABO/Rh O Positive Antibody Screen NEGATIVE Crossmatch See Detail Intake and Output - 24 Hour Total 03/15/25 16:58 thru 03/15/25 19:36 Intake Total 170 Balance 170 Weight 57.153 kg Intake: IV 170 Falls Risk Assessment History of Falls Previous History 03/15/25 17:12 Contributing Factors Unstable 03/15/25 17:12 Ambulatory Aids Uses ambulatory device 03/15/25 17:12 Tubes/Lines None 03/15/25 17:12 Fall Total Score 33 03/15/25 17:12 Level of Risk Moderate Risk 03/15/25 17:12 Problems (Last Reviewed 02/14/25 @ 14:51 by Sahara Bean NP) Hypoxia (Acute) Anemia (Chronic) v v v v v v v v v Sending and/or Receiving Nurses: Please use comment section below to note any information pertinent to the patient hand-off not included above. Information / Comments: Report taken from ER Nurse David, patient is AO, brought in for severe weakness. Has history of Ca with mets. Has O2 2 L via NC. ; Hgb 7.8, ist unit of RPBC infusing now. 2 IID's present , one on Lt Ac and Rt Fa , both g. 20. All questions asked answered appropriately. Report received from:
--- NOTE | 2025-03-15 20:33 | W.PM.HP.N ---
Date of service: 03/15/25 Time of Service: 20:33 Assessment and Plan Assessment and plan (1) Adrenal mass: Status: Acute Assessment and plan: This is a known finding and patient does not want further intervention (2) B12 deficiency: Status: Acute Assessment and plan: Continue with replacement (3) GI bleed: Status: Acute Assessment and plan: Patient is getting transfused we will recheck an H&H in the a.m. Consider reticulocyte count as well. (4) Low back pain: Status: Chronic Assessment and plan: Patient does have lumbar fractures which most likely are causing her low back pain. Not sure if these are pathological due to her underlying malignancy. Will reach out to palliative care to see if there is any other alternative medications such as calcitonin which would be appropriate for her. (5) Cerebral cavernoma: Status: Acute Assessment and plan: Once again this is a known finding. According to her neurology notes no, patient is not a candidate for anticoagulation for her A-fib due to her cerebral cavernoma's. (6) Closed compression fracture of lumbar vertebra: Status: Acute Assessment and plan: As above (7) Mass of right lung: Status: Chronic Assessment and plan: I did do a chest x-ray as the patient does have some leukocytosis awaiting official reads. Will not start on antibiotics as most likely this is reactive (8) Hypoxia: Status: Acute Assessment and plan: Patient with new oxygen requirement. Will need to be evaluated with a 6-minute walk test to see if she qualifies for oxygen. Unfortunately our case management is not here tomorrow as it is a holiday and potentially her respiratory therapy team is at holiday staffing. Will discuss with day team. (9) Hypokalemia: Status: Acute Assessment and plan: Placed in the ED will check labs and continue with oral if needed (10) Leukocytosis: Status: Acute Assessment and plan: As above History of Present Illness History of Present Illness Chief Complaint: weakness Narrative: This is a 79-year-old female who presents to the ED for weakness as well as malaise. On or about the middle of January this year she was diagnosed with metastatic cancer to at least the lungs brain and thyroid. At that time she decided not to pursue further interventions or investigations. She has been seen in consultation with palliative care but has not been officially on hospice as she has no one to take care of her at home. While she was in the ED she was noted to be hypoxic and requiring supplemental oxygen. Because of the new oxygen requirement we were asked to admit the patient at least for observation. While she was in the ED she was noted to have mild hypokalemia and elevated white count anemia for which she is getting transfused mild hypocalcemia as well as hypomagnesemia. 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) B12 deficiency (Acute) Cerebral cavernoma (Acute 04/27/18) Medical History Afib Closed fracture of greater trochanter of right femur Senile osteoporosis Anxiety disorder Mild recurrent major depression Seizure disorder HLD (hyperlipidemia) Osteoarthritis GERD (gastroesophageal reflux disease) Hypertension Surgical History H/O cataract extraction S/P appendectomy H/O breast biopsy S/P wrist surgery Family History Father Hyperlipidemia Heart disease Sister Alcohol abuse Maternal Grandmother Family hx-stroke Maternal Grandfather Heart disease Social History Smoking/Tobacco Use Status: Former Tobacco Use tobacco type: cigarettes Quit Date: 09/13/69 Smoking risk assessment performed?: Yes Alcohol Intake: current Alcohol Intake frequency: holidays/special occasions only Drug use: Never Substance use type: does not use Housing: apartment Number of Children: 1 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 Current gender 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 Meds Allergies and Home Medications Allergies Allergy/AdvReac Type Severity Reaction Status Date / Time Penicillins Allergy Intermediate Hives Verified 02/02/25 16:43 cat dander Allergy Mild Hives Verified 02/02/25 16:43 Home Medications ?Medication ?Instructions ?Recorded ?Confirmed ?Type metoprolol tartrate 50 mg tablet 50 mg PO BID 11/29/17 03/15/25 History aspirin 81 mg tablet,delayed 81 mg PO DAILY 04/13/23 03/15/25 History release (Adult Aspirin Regimen) Held on 02/16/25. Instructions: Resume on 02/22/25. As per PCP or once bleeding stops lidocaine 5 % topical patch 1 patch topical DAILY #30 ea 02/02/25 03/15/25 Rx (Lidoderm) phenytoin sodium extended 100 mg 100 mg PO QID 02/13/25 03/15/25 History capsule cyanocobalamin (vitamin B-12) 1,000 mcg PO DAILY 02/14/25 03/15/25 History 1,000 mcg tablet acetaminophen 500 mg tablet 1,000 mg (2 x 500 mg) PO Q8H #30 02/16/25 03/15/25 Rx tabs famotidine 20 mg tablet 20 mg PO BID #60 tabs 02/16/25 03/15/25 Rx ferrous sulfate 325 mg (65 mg 325 mg PO DAILY #30 tabs 02/16/25 03/15/25 Rx iron) tablet (Iron (ferrous sulfate)) pantoprazole 40 mg tablet,delayed 40 mg PO BID #60 tabs 02/16/25 03/15/25 Rx release (Protonix) sucralfate 1 gram tablet 1 g PO AC & HS #120 tabs 02/16/25 03/15/25 Rx tramadol 50 mg tablet 25 mg (1/2 x 50 mg) PO Q12H PRN #7 02/16/25 03/15/25 Rx tabs Exam Narrative Exam Narrative: HEENT-normocephalic atraumatic mucous membranes moist oropharynx is clear extraocular intact Neck-no lymphadenopathy no JVD no thyromegaly Cardiovascular-irregular irregular no murmur rubs gallops Pulm-clear to auscultation bilaterally no accessory muscle use Abdomen-scaphoid bowel sounds active x 4 Extremities-no sinus clubbing or edema bilaterally Neurologic-nonfocal [id number]-old female appears her stated age significant decreased muscle mass throughout Results Labs 03/15/25 17:47 03/15/25 17:47 Labs: Laboratory Results - last 24 hr 03/15/25 17:47 WBC 12.55 H RBC 3.08 L Hgb 7.6 L Hct 24.9 L MCV 81 MCH 24.7 L MCHC 30.5 L RDW 19.0 H Plt Count 184 MPV 9.5 Immature Gran % 0.6 Neutrophils % 78.0 Lymphocytes % 14.3 Monocytes % 6.7 Eosinophils % 0.3 Basophils % 0.1 Nucleated RBC % 0.2 Absolute Neutrophils 9.79 H Absolute Lymphocytes 1.79 Absolute Monocytes 0.84 H Absolute Eosinophils 0.04 Absolute Basophils 0.01 Sodium 139 Potassium 3.2 L Chloride 101 Carbon Dioxide 27.7 Anion Gap 10.3 BUN 17 Creatinine 0.8 Est GFR (CKD-EPI 2020) 75.84 Glucose 95 Calcium 8.0 L Magnesium 1.6 L Total Bilirubin 0.9 AST 20 ALT 15 Alkaline Phosphatase 115 Troponin I 18 Total Protein 7.4 Albumin 2.8 L ABO/Rh O Positive Antibody Screen NEGATIVE Crossmatch See Detail Last Vital Signs Temp 36.8 C 03/15/25 20:00 Pulse 91 H 03/15/25 20:23 Resp 18 03/15/25 20:23 BP 131/72 03/15/25 20:23 Pulse Ox 100 03/15/25 20:23 Time Spent Time spent with Patient: 40-54 minutes Time was spent: preparing to see the patient(eg.review tests), obtaining and/or reviewing separately otained hiistory, ordering medications,tests, procedures, referring, communicating with other health critical care unit nurse, indepentently interpreting results, counseling the patient and care coordination
--- NOTE | 2025-03-15 21:22 | DI.VRAD_ITS ---
PROCEDURE INFORMATION: Exam: XR Chest Exam date and time: 03/15/2025 8:01 PM Age: 79 years old Clinical indication: Hypoxia TECHNIQUE: Imaging protocol: Radiologic exam of the chest. Views: 1 view. COMPARISON: CT CHEST PE ABD PELVIS W 02/01/2025 12:52 PM FINDINGS: Lungs: No large consolidation. Linear opacities seen in the right lung may be secondary to atelectasis. Pleural spaces: No pleural effusion. No pneumothorax. Heart/Mediastinum: The heart appears enlarged. Bones/joints: Unremarkable. IMPRESSION: 1. No significant consolidation. 2. Possibly atelectasis in the right lung. Dictated and Authenticated by: Jamilah Masterson MD. Orderin Chris Martinez MD
[2025-03-15] MEDS: Acetaminophen 500 MG TAB 1000 MG PO (21:30)
[2025-03-15] MEDS: Metoprolol 50 MG TAB PO (21:31)
[2025-03-15] MEDS: Sucralfate 1 GM TAB PO (21:31)
[2025-03-15] MEDS: Pantoprazole 40 MG TABCR PO (21:31)
[2025-03-15] MEDS: Famotidine 20 MG TAB PO (21:31)
[2025-03-15] MEDS: Normal Saline Flush 10 ML SYR IVP (21:32)
[2025-03-16] VITALS (8 sets, daily range): BP systolic 97–118; BP diastolic 63–78; PULSE 88–107; RESP 16–20; TEMP 36.2–36.8; O2SAT 84–98
[2025-03-16] MEDS: Metoprolol 50 MG TAB PO ×2 (08:30→20:09)
[2025-03-16] MEDS: Normal Saline Flush 10 ML SYR IVP ×3 (08:30→20:12)
[2025-03-16] MEDS: Lidocaine 5% Patch 1 PATCH TP (08:30)
[2025-03-16] MEDS: Aspirin E.C. 81 MG TABEC PO (08:33)
[2025-03-16] MEDS: Famotidine 20 MG TAB PO ×2 (08:33→20:09)
[2025-03-16] MEDS: Pantoprazole 40 MG TABCR PO ×2 (08:34→20:09)
[2025-03-16] MEDS: Sucralfate 1 GM TAB PO ×4 (08:34→23:03)
[2025-03-16 11:15] LABS: HCT 30.8 % (36.0-46.0); HGB 9.6 g/dL (11.2-15.7); MCH 25.6 pg (27.0-33.0); MCHC 31.2 % (32.0-36.0); MCV 82 fL (80-95); MPV 9.6 fL (8.0-11.0); Platelet Count 145 10^3/uL (130-400); RBC 3.75 10^6/uL (3.93-5.22); RDW 18.0 % (11.7-14.6); RDW-SD 53.9 fL; WBC 10.63 10^3/uL (4.4-10.8)
[2025-03-16 11:32] LABS: ALT 12 U/L (14-59); AST 19 U/L (15-37); Albumin 2.6 g/dL (3.4-5.0); Alkaline Phosphatase 108 U/L (46-116); Anion Gap 9.5 mmol/L (3-11); BUN 18 mg/dL (7-18); Bilirubin, Total 1.4 mg/dL (0.2-1.0); CO2 26.5 mmol/L (21.0-32.0); Calcium 8.0 mg/dL (8.5-10.1); Chloride 101 mmol/L (98-107); Estimated GFR 75.84 (mL/min/1.73m2); Glucose 101 mg/dL (74-106); Magnesium 2.0 mg/dL (1.8-2.4); Potassium 3.6 mmol/L (3.5-5.1); Sodium 137 mmol/L (136-145); Total Protein 6.7 g/dL (6.4-8.2)
--- NOTE | 2025-03-16 13:25 | CHAPLAIN ---
Brooklyn is a home health patient, here for hypoxia. She is very pleasant and resting in bed when I visited. She said her nurse, Odalys, has done a great job caring for her. Brooklyn lives alone in an apartment in [facility]. Her daughter is about two hours away in [place]. Brooklyn was listed at [employer] on our scientology roster, but she said although she follows some [employer] practices, she does not consider herself [employer]. She was raised Lutheran and at 16 her dad gave her a book about several different religions and she said she has picked up bits and pieces of different adry that together provide her with support and guidance.
--- NOTE | 2025-03-16 14:14 | W.PM.PROGNOT ---
Date of Service Date of service: 03/16/25 Time of Service: 14:14 Assessment and Plan Assessment and plan (1) Acute hypoxic respiratory failure: Status: Acute Assessment and plan: New. Still hypoxic after 2 units RBC. Likely progression of her apparent lung cancer. Get walk test to qualify for home O2. (2) Mass of right lung: Status: Chronic Assessment and plan: Seen clearly on 02/01/25 CT chest. No acute infiltrate on chest x-ray on admission. This is a known mass that is likely malignant with metasteses evident in adrenal as well. (3) GI bleed: Status: Acute Assessment and plan: Patient is getting transfused we will recheck an H&H in the a.m. Consider reticulocyte count as well. (4) Closed compression fracture of lumbar vertebra: Status: Acute Assessment and plan: Patient does have lumbar fractures which most likely are causing her low back pain, possibly malignant. Currently minimal symptoms, however. opioid pain medication prn is okay if she needs it. (5) Hypokalemia: Status: Acute Assessment and plan: noramalized (6) Leukocytosis: Status: Acute Assessment and plan: normalized, was reactive (7) DVT prophylaxis: Status: Acute Assessment and plan: not on blood thinner with concern for GI bleed. SCDs Subjective Subjective Patient reports: no new complaints, tolerating a regular diet and voiding w/o difficulty; denies diarrhea, nausea, vomiting or fever Interval history since last seen: She feels okay with oxygen on. She denies pain currently. Has not had further GI bleeding. Exam Narrative Exam Narrative: Gen - A&O, NAD, O2 in place via NC Cardiovascular-irregular irregular no murmur rubs gallops Pulm-clear to auscultation bilaterally no accessory muscle use Abdomen- soft, NT/ND Extremities-no cyanosis, clubbing or edema bilaterally Objective Last Vital Signs Temp 36.8 C 03/16/25 07:51 Pulse 107 H 03/16/25 07:51 Resp 20 03/16/25 08:04 BP 97/64 L 03/16/25 07:51 Pulse Ox 92 03/16/25 10:49 Laboratory Results - last 24 hr 03/15/25 03/16/25 17:47 11:05 WBC 12.55 H 10.63 RBC 3.08 L 3.75 L Hgb 7.6 L 9.6 L D Hct 24.9 L 30.8 L MCV 81 82 MCH 24.7 L 25.6 L MCHC 30.5 L 31.2 L RDW 19.0 H 18.0 H Plt Count 184 145 MPV 9.5 9.6 Immature Gran % 0.6 Neutrophils % 78.0 Lymphocytes % 14.3 Monocytes % 6.7 Eosinophils % 0.3 Basophils % 0.1 Nucleated RBC % 0.2 Absolute Neutrophils 9.79 H Absolute Lymphocytes 1.79 Absolute Monocytes 0.84 H Absolute Eosinophils 0.04 Absolute Basophils 0.01 Sodium 139 137 Potassium 3.2 L 3.6 Chloride 101 101 Carbon Dioxide 27.7 26.5 Anion Gap 10.3 9.5 BUN 17 18 Creatinine 0.8 0.8 Est GFR (CKD-EPI 2020) 75.84 75.84 Glucose 95 101 Calcium 8.0 L 8.0 L Magnesium 1.6 L 2.0 Total Bilirubin 0.9 1.4 H AST 20 19 ALT 15 12 L Alkaline Phosphatase 115 108 Troponin I 18 Total Protein 7.4 6.7 Albumin 2.8 L 2.6 L ABO/Rh O Positive Antibody Screen NEGATIVE Crossmatch See Detail Time Spent with Patient Time Spent with Patient: 35-49 minutes Time was spent: preparing to see the patient(eg.review tests), obtaining and/or reviewing separately otained hiistory, ordering medications,tests, procedures, referring, communicating with other health respiratory care instructor, indepentently interpreting results, counseling the patient and care coordination
[2025-03-16] MEDS: Acetaminophen 500 MG TAB 1000 MG PO (14:27)
[2025-03-17 06:49] LABS: HCT 28.4 % (36.0-46.0); HGB 8.9 g/dL (11.2-15.7); MCH 25.4 pg (27.0-33.0); MCHC 31.3 % (32.0-36.0); MCV 81 fL (80-95); MPV 9.5 fL (8.0-11.0); Platelet Count 160 10^3/uL (130-400); RBC 3.51 10^6/uL (3.93-5.22); RDW 18.2 % (11.7-14.6); RDW-SD 53.1 fL; WBC 9.99 10^3/uL (4.4-10.8)
[2025-03-17 07:35] VITALS: BP 99/64; PULSE 114; RESP 16; TEMP 37.1; O2SAT 93
[2025-03-17 08:35] VITALS: O2SAT 92
[2025-03-17] MEDS: Cyanocobalamin 500 MCG TAB 1000 MCG PO (08:35)
[2025-03-17] MEDS: Famotidine 20 MG TAB PO (08:36)
[2025-03-17] MEDS: Pantoprazole 40 MG TABCR PO (08:36)
[2025-03-17] MEDS: Metoprolol 50 MG TAB PO (08:36)
[2025-03-17] MEDS: Normal Saline Flush 10 ML SYR IVP (08:37)
[2025-03-17] MEDS: Lidocaine Patch Removal 1 EACH TD (08:37)
--- NOTE | 2025-03-17 08:56 | PDOC.CMIN ---
Date of service: 03/17/25 Time of Service: 08:56 Care Management Initial Assmt Initial Assessment Reason for Hospitalization: GI Bleed Functional Status/Living Situation Patient Presentation: Brooklyn was sitting up in bed when CM met with her. She was pleasant in interaction and agreeable to conversation. Brooklyn was admitted with hypoxia, presumably related to her metastatic lung cancer. An exercise oximetry assessment was completed and Brooklyn does qualify for home oxygen. She has been given a concentrator to facilitate transportation home. Brooklyn lives alone in an apartment in [facility]. She has one daughter names Loli Wilburn who lives in [facility]. 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) Instrumental Activities of Daily Living (ADLs): Independent Medications Medication Management: No Issues/Barriers identified Physical Functioning/Mobility Assistive Device: walker Advance Directives Advance Directives: Do you have an Advance Directive: N 02/15/25, 15:20 AD On File at [facility]: N 02/15/25, 15:20 Date Asked 03/15/25 03/15/25, 20:29 AD Date Reviewed COLST On File at [facility] COLST Date Scanned Code Status Resuscitation Status DNR/DNI Portal Pt does not currently have a portal and education provided: Yes Insurance Coverage/Financial Issues Insurance: Medicare Financial Assist 100 Care Team Visit Care Team Role Provider Type Alfredo Nathan MD [facility] STAFF PHYSICIAN Letty Smith MD Primary Care Provider [facility] STAFF PHYSICIAN Virgie Cabrera MD Emergency Provider [facility] STAFF PHYSICIAN Juan Perez MD Admit Provider [facility] STAFF PHYSICIAN Attending Provider Discharge Potential Discharge Needs: PCP F/U Appt Anticipated Barriers to Discharge: None Identified Patient/Family Education Needs: Review discharge instructions, discuss Ask Me Three Transportation: Private vehicle Plan: Anticipate Brooklyn will be discharged home, with a resumption of home health services for RN, PT, OT, when medically cleared. She will follow up with her PCP and plan of care and transport with family. CM will follow and continue to assess for discharge needs. Social Determinants of Health Screening Social Determinants of health last assessed in clinic: 03/26/25 Will the Patient Participate in the Screening?: Yes Do you worry about having a steady place to live?: no Problems where you live: no known problems In the past 12 months, have you had to go without electric, gas, oil or water in your home?: no 1. Within the past 12 months, we worried whether our food would run out before we got money to buy more.: Never true 2. Within the past 12 months, the food we bought just didn't last and we didn't have money to get more.: Never true Has lack of transportation kept you from medical appointments or from doing things needed for daily living?: no Has anyone in your life made you feel unsafe or unsupported?: no How hard is it for you to pay for the very basics like food, housing, medical care, and heating? Would you say it is:: Not hard at all Do you want help finding or keeping work or a job?: I do not need or want help If for any reason you need help with day-to-day activities such as bathing, preparing meals, shopping, managing finances, etc., do you get the help you need?: I need a lot more help How often do you feel lonely or isolated from those around you?: Never Do you speak a language other than Romansh at home?: No Does the patient want assistance with any of the above?: No Health Related Social Needs Health related social needs: problems with daily activities (Z73.9) Health related social needs details: presently with community services, home health nurse and aides comes to her place. 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) B12 deficiency (Acute) Cerebral cavernoma (Acute 04/27/18) Medical History Afib Closed fracture of greater trochanter of right femur Senile osteoporosis Anxiety disorder Mild recurrent major depression Seizure disorder HLD (hyperlipidemia) Osteoarthritis GERD (gastroesophageal reflux disease) Hypertension Surgical History H/O cataract extraction S/P appendectomy H/O breast biopsy S/P wrist surgery Family History Father Hyperlipidemia Heart disease Sister Alcohol abuse Maternal Grandmother Family hx-stroke Maternal Grandfather Heart disease Social History Smoking/Tobacco Use Status: Former Tobacco Use tobacco type: cigarettes Quit Date: 09/13/69 Smoking risk assessment performed?: Yes Alcohol Intake: current Alcohol Intake frequency: holidays/special occasions only Drug use: Never Substance use type: does not use Housing: apartment Number of Children: 1 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
[2025-03-17 10:40] VITALS: PULSE 104; PULSE 107; PULSE 138; PULSE 141; O2SAT 83; O2SAT 91; O2SAT 95; O2SAT 97
[2025-03-17] MEDS: Sucralfate 1 GM TAB PO (12:15)
--- NOTE | 2025-03-17 12:54 | DSE_ITS ---
Date of service: 03/17/25 Time of Service: 12:54 DS: Diagnosis Discharge Diagnosis (1) Acute hypoxic respiratory failure: Status: Acute (2) Mass of right lung: Status: Chronic (3) GI bleed: Status: Acute (4) Closed compression fracture of lumbar vertebra: Status: Acute (5) Hypokalemia: Status: Acute (6) Leukocytosis: Status: Acute (7) DVT prophylaxis: Status: Acute Discharge Plan Disposition Patient Disposition: Home W/Home Health Services Condition: Stable Discharge Details Reason For Visit: Hypoxia Admit Date/Time: 03/15/25 19:34 Admit Provider: Juan Perez Attending Provider: Juan Perez [facility] Hospital Course: 79 yo F with known metastatic lung cancer who is not pursuing curative therapy presented with weakness and shortness of breath. She had a history of recent GI and had worse anemia to hgb 7.4 with SOB, so was transfused 2 units RBC. She was feeling better the following morning, but was still hypoxic, which was likely due to progression of her lung cancer. She was qualified for home oxygen at 2 LPM and discharged with home oxygen. She was not in pain and did not have any bleeding here. Her potassium and magnesium were supplemented. It was not recommended she resume her aspirin given concern for GI bleeding with severe anemia. 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 Recommendations for Follow Up Recommended tests to be ordered by follow up provider: cbc one week if consistent with her goals of long term Meds and New Rx's Prescriptions: Continued metoprolol tartrate 50 MG tablet 50 mg PO BID phenytoin sodium extended 100 mg capsule 100 mg PO QID Patient Comments: per PCP 10/04/24 lidocaine [Lidoderm] 5 % adhesive patch,medicated 1 patch topical DAILY Qty: 30 0RF Rx Instructions: leave on most painful area for up to 12 hrs cyanocobalamin (vitamin B-12) 1,000 mcg tablet 1,000 mcg PO DAILY Patient Comments: TAKE ONE TABLET BY MOUTH EVERY DAY famotidine 20 mg Tablet 20 mg PO BID Qty: 60 0RF sucralfate 1 gram Tablet 1 g PO AC & HS Qty: 120 0RF tramadol 50 mg Tablet 25 mg PO Q12H PRNQty: 7 0RF acetaminophen 500 mg Tablet 1,000 mg PO Q8H Qty: 30 0RF ferrous sulfate [Iron (ferrous sulfate)] 325 mg (65 mg iron) tablet 325 mg PO DAILY Qty: 30 0RF pantoprazole [Protonix] 40 mg tablet,delayed release (DR/EC) 40 mg PO BID Qty: 60 0RF Discontinued aspirin [Adult Aspirin Regimen] 81 mg tablet,delayed release (DR/EC) 81 mg PO DAILY Patient Comments: pt reports taking twice daily Discharge Instructions Additional Instructions: You are being set up for oxygen at home. Follow up with palliative care and primary care as planned for symptom management Activity:: Activity as Tolerated Equipment/Supplies:: Oxygen (L/min Below) Diet:: As Tolerated DS: Summary Time Spent with Patient providing and/or coordinating discharge services: Greater than 30 minutes Status at Discharge Functional status at discharge: uses cane/walker Overall status at discharge: patient is back to baseline Mental Status: mental status grossly normal Speech and Movement: speech and movement normal Mood: congruent mood Affect: normal affect Quality:SDOH Health Related Social Needs: Health related social needs daily activities Health related social needs details presently with [facility] services, home health nurse and aides comes to her place. Health related social needs details: presently with [facility] services, home health nurse and aides comes to her place. Exam Narrative Exam Narrative: Gen - A&O, NAD, O2 in place via NC at 2LPM Cardiovascular-irregular irregular no murmur rubs gallops Pulm-clear to auscultation bilaterally no accessory muscle use Abdomen- soft, NT/ND Extremities-no cyanosis, clubbing or edema bilaterally Psych Mental Status: mental status grossly normal Speech and Movement: speech and movement normal Mood: congruent mood Affect: normal affect DS: Data Vitals/I&O Vitals and I&O: Vital Signs Temperature 37.1 C 03/17/25 07:35 Temperature Source Temporal Artery Scan 03/17/25 07:35 Pulse 114 H 03/17/25 07:35 Pulse Rhythm Irregular 03/15/25 20:59 Pulse 92 H 03/15/25 18:40 Respiratory Rate 16 03/17/25 07:35 Respiratory Effort Normal, Non-Labored 03/15/25 20:59 Respiratory Depth Normal 03/15/25 20:59 Respiratory Pattern Irregular 03/15/25 20:59 Blood Pressure 99/64 L 03/17/25 07:35 Blood Pressure Mean 75 03/17/25 07:35 Blood Pressure Position Sitting 03/15/25 17:02 Pulse Oximetry 92 03/17/25 08:35 Oxygen Delivery Method Nasal Cannula 03/17/25 08:35 Oxygen Flow Rate 2 03/17/25 08:35 Pain Level 3 03/17/25 08:40 Intake & Output 03/16/25 03/17/25 03/17/25 23:59 11:59 23:59 Intake Total 140 / 760 Output Total 250 / 250 Balance -110 / 510 Weight 57.4 kg Intake: IV 20 / 120 Oral 120 / 240 Output: Urine 250 / 250 Other: Urine Color Straw Light Jessica Urine Appearance Clear Urine Odor Strong Comment HEAVILY incontinent in brief Data Completed and Pending Labs on day of discharge: Labs from last 24 hours 03/17/25 05:59 WBC 9.99 RBC 3.51 L Hgb 8.9 L Hct 28.4 L MCV 81 MCH 25.4 L MCHC 31.3 L RDW 18.2 H Plt Count 160 MPV 9.5 PFSH All Active Problems (Updated 03/16/25 @ 14:23 by Alfredo Nathan) DVT prophylaxis (Acute) Acute hypoxic respiratory failure (Acute) Leukocytosis (Acute) Hypokalemia (Acute) Hypoxia (Acute) Anemia (Chronic) GI bleed (Acute) Closed compression fracture of lumbar vertebra (Acute) Adrenal mass (Acute) Calcification of brain (Acute) Mass of right lung (Chronic) Urethral prolapse (Acute) Low back pain (Chronic) Hemangioma (Acute) liver Gait abnormality (Acute) Depressed (Chronic) Anxiety (Chronic) Right carpal tunnel syndrome (Acute) Numbness of right hand (Acute) 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) B12 deficiency (Acute) Cerebral cavernoma (Acute 04/27/18) Medical History Afib Closed fracture of greater trochanter of right femur Senile osteoporosis Anxiety disorder Mild recurrent major depression Seizure disorder HLD (hyperlipidemia) Osteoarthritis GERD (gastroesophageal reflux disease) Hypertension Surgical History H/O cataract extraction S/P appendectomy H/O breast biopsy S/P wrist surgery Family History Father Hyperlipidemia Heart disease Sister Alcohol abuse Maternal Grandmother Family hx-stroke Maternal Grandfather Heart disease Social History Smoking/Tobacco Use Status: Former Tobacco Use tobacco type: cigarettes Quit Date: 09/13/69 Smoking risk assessment performed?: Yes Alcohol Intake: current Alcohol Intake frequency: holidays/special occasions only Drug use: Never Substance use type: does not use Housing: apartment Number of Children: 1 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 gender 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 Time Spent with Patient Time Spent with Patient: <45 minutes Time was spent: preparing to see the patient(eg.review tests), obtaining and/or reviewing separately otained hiistory, ordering medications,tests, procedures, referring, communicating with other health care coordination manager, indepentently interpreting results, counseling the patient and care coordination
== END 2025-03-17 15:08 | disposition home health service (06) ==
LOC: ER 19:46 → MS 20:29
PROVIDERS: Admitting Provider Hospitalist; Emergency Provider Emergency Medicine; PCP Family Medicine; Responsible Provider Family Medicine; Visit Provider Hospitalist
DX: J96.01 Acute respiratory failure with hypoxia (principal); C78.01 Secondary malignant neoplasm of right lung; M54.50 Low back pain, unspecified; C79.31 Secondary malignant neoplasm of brain; C79.89 Secondary malignant neoplasm of other specified sites; K92.2 Gastrointestinal hemorrhage, unspecified; M48.56XA Collapsed vertebra, not elsewhere classified, lumbar region, initial encounter for fracture; D72.829 Elevated white blood cell count, unspecified; E87.6 Hypokalemia; D64.9 Anemia, unspecified; D18.03 Hemangioma of intra-abdominal structures; Q28.3 Other malformations of cerebral vessels; R26.9 Unspecified abnormalities of gait and mobility; I48.91 Unspecified atrial fibrillation; G62.0 Drug-induced polyneuropathy; E27.8 Other specified disorders of adrenal gland; E78.5 Hyperlipidemia, unspecified; K21.9 Gastro-esophageal reflux disease without esophagitis; E53.8 Deficiency of other specified B group vitamins; I10 Essential (primary) hypertension; Z87.891 Personal history of nicotine dependence; Z79.82 Long term (current) use of aspirin; Z79.899 Other long term (current) drug therapy; R53.1 Weakness
CPT/HCPCS: 00123; 36415; 36430; 80053; 85027; 86850; 86900; 86901; 86920; 93005; 96365; 99285; 71045; 83735; 84484; 85025; 93010; 94760; 99222; 99232; 99239; G0378; J3475; J3480; J3490; P9016